=== PATIENT | female | born 1935 | race Caucasian/White ===

== ENCOUNTER → 2016-05-15 | Outpatient (CLI) | payer MEDICARE, OTHER ==
[~2016-05-15] MED LIST: ACIP20TA19 PO; ANAS1 PO; ASPI81 PO; ATOR10 PO; FELO5TAB PO; LEVO.075 PO; MECL-62 PO; NOVONP2 SQ; NOVORP2 SQ; TELM1TAB4 PO; TOPR50TA PO; VITA200017 PO; ZOFR4TAB3 SL; ZYRT10TA12 PO
[2016-05-15 08:50] LABS: AUTOMATED NEUTROPHIL # 3.5 TH/MM3 (1.8-7.7); BASOPHIL % 0.9 % (0.0-2.0); EOSINOPHIL # 0.2 TH/MM3 (0-0.4); EOSINOPHIL % 3.8 % (0.0-4.0); HEMATOCRIT 36.8 % (35.0-46.0); HEMO FLAGS DIFF FINAL; LYMPH % 20.3 % (9.0-44.0); LYMPHOCYTE # 1.1 TH/MM3 (1.0-4.8); MEAN CELL VOLUME 83.8 FL (80.0-100.0); MEAN CORPUSCULAR HEMOGLOBIN 27.7 PG (27.0-34.0); MEAN CORPUSCULAR HGB CONC 33.1 % (32.0-36.0); MONO % 7.8 % (0.0-8.0); NEUT % 67.2 % (16.0-70.0); PLATELET COUNT 207 TH/MM3 (150-450); RED BLOOD COUNT 4.39 MIL/MM3 (4.00-5.30); RED CELL DISTRIBUTION WIDTH 13.9 % (11.6-17.2); WHITE BLOOD COUNT 5.2 TH/MM3 (4.0-11.0)
[2016-05-15 08:54] LABS: BACTERIA, URINE RARE /hpf; BLOOD, URINE NEG (NEG); COMMENT (UR) CULT NOT INDICATED; CULTURE IF INDICATED CULT NOT INDICATED; GLUCOSE,URINE TRACE mg/dL (NEG); HYALINE CAST, URINE 1 /lpf (RARE); KETONE, URINE NEG (NEG); NITRITE,URINE NEG (NEG); PH, URINE 6.5 (5.0-8.5); SQUAMOUS EPITHELIAL CELL URINE <1 /hpf (0-5); URINE COLOR LIGHT-YELLOW (YELLW/STRAW)
[2016-05-15 09:14] LABS: MICRO ALBUMIN RANDOM URINE RAW 5.4 MG/L (0.0-30.0)
[2016-05-15 09:39] LABS: ALKALINE PHOSPHATASE 118 U/L (45-117); ALT (GPT) 17 U/L (10-53); ANION GAP 6 MEQ/L (5-15); AST (GOT) 14 U/L (15-37); BICARBONATE 27.7 MEQ/L (21.0-32.0); BLOOD UREA NITROGEN 11 MG/DL (7-18); CHLORIDE 105 MEQ/L (98-107); FREE T4 1.31 NG/DL (0.76-1.46); GLOMERULAR FILTRATION RATE 73 ML/MIN (>89); GLUCOSE,FASTING 154 MG/DL (74-99); HDL CHOLESTEROL 55.8 MG/DL (40.0-60.0); LDL CHOLESTEROL 64 MG/DL (0-99); POTASSIUM 3.9 MEQ/L (3.5-5.1); SODIUM (NA) 139 MEQ/L (136-145); TOTAL BILIRUBIN ADULT 0.6 MG/DL (0.2-1.0)
[2016-05-15 16:40] LABS: HEMOGLOBIN A1b 1.7 %; HEMOGLOBIN Ao 83.1 %; HEMOGLOBIN LA1C 2.4 %; HEMOGLOBIN P3 4.1 %
== END ==
LOC: CLAB 08:15
PROVIDERS: ATTEND Internal Medicine
DX: E10.9 Type 1 diabetes mellitus without complications (principal); E03.9 Hypothyroidism, unspecified
CPT/HCPCS: 36415; 80053; 80061; 81001; 82043; 83036; 84439; 84443; 85025

== ENCOUNTER → 2016-06-26 | Outpatient (CLI) | payer MEDICARE, OTHER ==
[2016-06-26 09:25] LABS: FREE T4 1.36 NG/DL (0.76-1.46)
== END ==
LOC: CLAB 07:59
DX: E03.9 Hypothyroidism, unspecified (principal)
CPT/HCPCS: 36415; 84439; 84443

== ENCOUNTER 2016-08-01 16:20 | Emergency (ER) | payer MEDICARE, OTHER ==
[~2016-08-01] VITALS: Ht 162.6 cm; Wt 89.0 kg
[~2016-08-01 16:20] MED LIST changes: -MECL-62 PO; -ZOFR4TAB3 SL
[2016-08-01 16:22] VITALS: BP 203/87; PULSE 92; RESP 24; TEMP 98.6; O2SAT 97
--- NOTE | 2016-08-01 16:25 | PD ---
Physical Exam Time Seen by Provider: 16:24 Narrative 81 y/o female here with headache, dizziness, nausea. Originally started 2 weeks ago, improved last week, worsened today. Vital signs reviewed. Seen at triage desk. Awaiting bed placement. Data Data Last Documented VS Vital Signs Date Time Temp Pulse Resp B/P Pulse Ox O2 Delivery O2 Flow Rate FiO2 08/01/16 16:22 98.6 92 24 203/87 97 MDM Medical Record Reviewed: Yes Supervised Visit with SURY: Yuan Lopez August 01, 2016 16:25
--- NOTE | 2016-08-01 17:43 | PD ---
HPI Chief Complaint: Dizziness Time Seen by Provider: 17:29 Travel History International Travel<30 days: No Contact w/Intl Traveler<30days: No Traveled to known affect area: No History of Present Illness HPI 81-year-old female complains of headache and dizziness and nausea. Patient states that she has intermittent symptoms for the past 2 weeks. Patient states that the headache is aching headache frontal headache. Patient denies any visual change. Patient denies any neck pain. Patient denies any chest pain or shortness of breath. Patient denies abdominal pain. Patient states that she had nausea but no vomiting or diarrhea. Patient denies any dysuria or frequency. Patient denies any fever chills. Patient denies any focal weakness or numbness of extremity. 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) High Cholesterol: No Chest Pain: No Congestive Heart Failure: No COPD: No Diabetes: Yes Endocrine: Yes GERD: Yes Genitourinary: No Hypertension: Yes Musculoskeletal: No Neurologic: Yes (DIZZINESS) Psychiatric: No Reproductive: No Respiratory: No Radiation Therapy: Yes Sleep Apnea: No Thyroid Disease: Yes (THYROID NODULES) Menopausal: Yes Past Surgical History Mastectomy: Yes (AMI) Social History Alcohol Use: No Tobacco Use: No Substance Use: No Allergies-Medications (Allergen,Severity, Reaction): Coded Allergies: Penicillin (Verified Allergy, Intermediate, Rash, 08/01/16) Latex (Verified Allergy, Mild, BLISTERS, 08/01/16) Ampicillin (Verified Allergy, Unknown, 08/01/16) Keflex (Verified Allergy, Unknown, Rash, 08/01/16) Reported Meds & Prescriptions Reported Meds & Active Scripts Active Reported Telmisartan/Hydrochloroth 80-25 mg (Telmisartan-Hydrochlorothiazid) 1 Tab Tab PO DAILY Felodipine Er (Felodipine) 5 Mg Tab 5 Mg PO DAILY Novolin R (Insulin Human Regular) 100 Units/Ml Inj 4 Units SQ PM Novolin R (Insulin Human Regular) 100 Units/Ml Inj 6 Units SQ AM Vitamin D3 (Cholecalciferol) 2,000 Unit Cap 2,000 Unit PO EVERY OTHER DAY Arimidex (Anastrozole) 1 Mg Tab 1 Mg PO DAILY Aciphex (Rabeprazole Sodium) 20MG Tab 20 Mg PO DAILY Aspirin 81 Mg Tab 81 Mg PO HS Synthroid (Levothyroxine Sodium) 75 Mcg Tab 75 Mcg PO HS Zyrtec (Cetirizine HCl) 10 Mg Tab 10 Mg PO EVERY OTHER DAY Lipitor (Atorvastatin Calcium) 10 Mg Tab 10 Mg PO HS Novolin N (Insulin Human NPH) 100 Units/Ml Inj 10 Units SQ PM Novolin N (Insulin Human NPH) 100 Units/Ml Inj 34 Units SQ AM Toprol Xl (Metoprolol Succinate) 50 Mg Tabcr 50 Mg PO DAILY Review of Systems General / Constitutional: No: Fever Eyes: No: Visual changes HENT: Positive: Headaches, Lightheadedness Cardiovascular: No: Chest Pain or Discomfort Respiratory: No: Shortness of Breath Gastrointestinal: Positive: Nausea, No: Abdominal Pain Genitourinary: No: Dysuria Musculoskeletal: No: Pain Skin: No Rash Neurologic: No: Weakness Psychiatric: No: Depression Endocrine: No: Polydipsia Hematologic/Lymphatic: No: Easy Bruising Physical Exam Narrative GENERAL: Well-nourished, well-developed patient. SKIN: Focused skin assessment warm/dry. HEAD: Normocephalic. EYES: No scleral icterus. No injection or drainage. Pupils 3 mm equal reactive. Patient has some mild horizontal nystagmus. NECK: Supple, trachea midline. No JVD or lymphadenopathy. CARDIOVASCULAR: Regular rate and rhythm without murmurs, gallops, or rubs. RESPIRATORY: Breath sounds equal bilaterally. No accessory muscle use. GASTROINTESTINAL: Abdomen soft, non-tender, nondistended. MUSCULOSKELETAL: No cyanosis, or edema. BACK: Nontender without obvious deformity. No CVA tenderness. Neurologic exam: Patient's awake and alert oriented 3. No obvious focal neurological deficit. Data Data Last Documented VS Vital Signs Date Time Temp Pulse Resp B/P Pulse Ox O2 Delivery O2 Flow Rate FiO2 08/01/16 16:22 98.6 92 24 203/87 97 Orders Electrocardiogram (08/01/16 16:26) Complete Blood Count With Diff (08/01/16 17:35) Basic Metabolic Panel (Bmp) (08/01/16 17:35) Urinalysis - C+S If Indicated (08/01/16 17:35) Ct Brain W/O Iv Contrast(Rout) (08/01/16 17:35) Iv Access Insert/Monitor (08/01/16 17:35) Ecg Monitoring (08/01/16 17:35) Oximetry (08/01/16 17:35) Meclizine (Antivert) (08/01/16 17:45) Ondansetron Inj (Zofran Inj) (08/01/16 17:45) Labs Laboratory Tests Test 08/01/16 18:05 White Blood Count 9.5 TH/MM3 Red Blood Count 4.72 MIL/MM3 Hemoglobin 13.0 GM/DL Hematocrit 39.3 % Mean Corpuscular Volume 83.4 FL Mean Corpuscular Hemoglobin 27.7 PG Mean Corpuscular Hemoglobin 33.2 % Concent Red Cell Distribution Width 14.6 % Platelet Count 203 TH/MM3 Mean Platelet Volume 7.7 FL Neutrophils (%) (Auto) 91.9 % Lymphocytes (%) (Auto) 4.8 % Monocytes (%) (Auto) 2.5 % Eosinophils (%) (Auto) 0.7 % Basophils (%) (Auto) 0.1 % Neutrophils # (Auto) 8.7 TH/MM3 Lymphocytes # (Auto) 0.5 TH/MM3 Monocytes # (Auto) 0.2 TH/MM3 Eosinophils # (Auto) 0.1 TH/MM3 Basophils # (Auto) 0.0 TH/MM3 CBC Comment DIFF FINAL Differential Comment Sodium Level 136 MEQ/L Potassium Level 4.0 MEQ/L Chloride Level 102 MEQ/L Carbon Dioxide Level 26.6 MEQ/L Anion Gap 7 MEQ/L Blood Urea Nitrogen 16 MG/DL Creatinine 0.76 MG/DL Estimat Glomerular Filtration 73 ML/MIN Rate Random Glucose 157 MG/DL Calcium Level 9.0 MG/DL [facility] Medical Decision Making Medical Screen Exam Complete: Yes Emergency Medical Condition: Yes Interpretation(s) 1833 PM. CBC within normal limit. WBC 9.5. 91 neutrophil. BMP within normal limit. [address] scan of the brain negative acute pathology. Differential Diagnosis Differential diagnosis including positional vertigo, dehydration, electrolyte imbalance, intracranial pathology. Narrative Course 81-year-old female with intermittent dizziness and nausea and headache. Meclizine 25 mg by mouth given. Zofran 4 mg IV. Diagnosis Primary Impression: Acute onset of severe vertigo Patient Instructions: General Instructions Additional Instructions: Take medications as needed. Follow-up with personal physician. Return if persistent problem or worse. Med/Other Pt SpecificInfo: Prescription(s) given Scripts Ondansetron Odt (Zofran Odt)4 Mg Tab4 Mg SL Q12HR PRN (Nausea/Vomiting) #10 TAB Ref 0 Prov:Kristian Dawn MD 08/01/16 Meclizine 25 Mg Tab25 Mg PO TID PRN (VERTIGO) #21 TAB Ref 0 Prov:Kristian Dawn MD 08/01/16 Disposition: 01 DISCHARGE HOME Condition: Stable Kristian Dawn MD August 01, 2016 17:43
[2016-08-01] MEDS ORDERED: MECLIZINE HCL 25 MG TAB PO ONE (17:45)
[2016-08-01] MEDS ORDERED: ONDANSETRON HCL 4 MG/2 ML VIAL IV PUSH ONE (17:45)
[2016-08-01 18:16] LABS: AUTOMATED NEUTROPHIL # 8.7 TH/MM3 (1.8-7.7); BASOPHIL % 0.1 % (0.0-2.0); EOSINOPHIL # 0.1 TH/MM3 (0-0.4); EOSINOPHIL % 0.7 % (0.0-4.0); HEMATOCRIT 39.3 % (35.0-46.0); HEMO FLAGS DIFF FINAL; LYMPH % 4.8 % (9.0-44.0); LYMPHOCYTE # 0.5 TH/MM3 (1.0-4.8); MEAN CELL VOLUME 83.4 FL (80.0-100.0); MEAN CORPUSCULAR HEMOGLOBIN 27.7 PG (27.0-34.0); MEAN CORPUSCULAR HGB CONC 33.2 % (32.0-36.0); MONO % 2.5 % (0.0-8.0); NEUT % 91.9 % (16.0-70.0); PLATELET COUNT 203 TH/MM3 (150-450); RED BLOOD COUNT 4.72 MIL/MM3 (4.00-5.30); RED CELL DISTRIBUTION WIDTH 14.6 % (11.6-17.2); WHITE BLOOD COUNT 9.5 TH/MM3 (4.0-11.0)
--- NOTE | 2016-08-01 18:30 | RADRPT ---
EXAM DATE/TIME: 08/01/2016 18:09 [facility] COMPARISON: CT BRAIN W/O CONTRAST, January 20, 2014, 13:02. INDICATIONS : Cephalgia and dizziness. RADIATION DOSE: 56.35 CTDIvol (mGy) MEDICAL HISTORY : Hypertension. Cardiovascular disease Carcinoma, breast. SURGICAL HISTORY : Mastectomy, bilateral. ENCOUNTER: Initial ACUITY: 1 day PAIN SCALE: 5/10 LOCATION: cranial TECHNIQUE: Multiple contiguous axial images were obtained of the head. Using automated exposure control and adj ustment of the mA and/or kV according to patient size, radiation dose was kept as low as reasonably a chievable to obtain optimal diagnostic quality images. FINDINGS: CEREBRUM: The ventricles are normal for age. No evidence of midline shift, mass lesion, hemorrhage or acute in farction. No extra-axial fluid collections are seen. POSTERIOR FOSSA: The cerebellum and brainstem are intact. The 4th ventricle is midline. The cerebellopontine angle i s unremarkable. EXTRACRANIAL: The visualized portion of the orbits is intact. SKULL: The calvaria is intact. No evidence of skull fracture. CONCLUSION: Normal examination for a patient of this age. No significant change has occurred. Mac Escalante MD on August 01, 2016 at 18:26 Board Certified Radiologist. This report was verified electronically.
[2016-08-01 18:32] LABS: BICARBONATE 26.6 MEQ/L (21.0-32.0)
[2016-08-01] MEDS ORDERED: MECL-62 PO (18:43)
[2016-08-01] MEDS ORDERED: ZOFR4TAB3 SL (18:43)
[2016-08-01 19:20] VITALS: BP 182/86
--- NOTE | 2016-08-02 10:58 | EKG ---
Date Performed: 08/01/2016 Time Performed: 16:32:43 PTAGE: 81 years EKG: Sinus rhythm POSSIBLE LEFT ATRIAL ENLARGEMENT RIGHT BUNDLE BRANCH BLOCK ABNORMAL ECG NO PREVIOUS TRACING DOCTOR: Jeff Hedz Interpretating Date/Time 08/02/2016 10:56:32
== END 2016-08-01 19:22 | disposition home or self-care (01) ==
LOC: NEPC 16:20
DX: R42 Dizziness and giddiness (principal); R51 Headache; R11.0 Nausea; E11.9 Type 2 diabetes mellitus without complications; I10 Essential (primary) hypertension; E04.1 Nontoxic single thyroid nodule; I45.10 Unspecified right bundle-branch block
CPT/HCPCS: 70450; 80048; 85025; 93005; 96374; 99284; J2405

== ENCOUNTER → 2016-08-16 | Outpatient (CLI) | payer MEDICARE, OTHER ==
[~2016-08-16] MED LIST changes: +MECL-62 PO; +ZOFR4TAB3 SL
[2016-08-16 08:34] LABS: AUTOMATED NEUTROPHIL # 4.2 TH/MM3 (1.8-7.7); BASOPHIL # 0.1 TH/MM3 (0-0.2); EOSINOPHIL # 0.3 TH/MM3 (0-0.4); EOSINOPHIL % 4.6 % (0.0-4.0); HEMATOCRIT 36.1 % (35.0-46.0); HEMO FLAGS DIFF FINAL; LYMPH % 15.2 % (9.0-44.0); LYMPHOCYTE # 0.9 TH/MM3 (1.0-4.8); MEAN CELL VOLUME 84.1 FL (80.0-100.0); MEAN CORPUSCULAR HEMOGLOBIN 27.3 PG (27.0-34.0); MEAN CORPUSCULAR HGB CONC 32.5 % (32.0-36.0); MONO % 9.2 % (0.0-8.0); PLATELET COUNT 216 TH/MM3 (150-450); RED CELL DISTRIBUTION WIDTH 14.5 % (11.6-17.2); WHITE BLOOD COUNT 5.9 TH/MM3 (4.0-11.0)
[2016-08-16 08:50] LABS: BLOOD, URINE NEG (NEG); COMMENT (UR) CULT NOT INDICATED; CULTURE IF INDICATED CULT NOT INDICATED; GLUCOSE,URINE NEG (NEG); KETONE, URINE NEG (NEG); MUCUS URINE FEW /lpf (OCC); NITRITE,URINE NEG (NEG); SQUAMOUS EPITHELIAL CELL URINE <1 /hpf (0-5); URINE COLOR LIGHT-YELLOW (YELLW/STRAW)
[2016-08-16 10:16] LABS: ANION GAP 7 MEQ/L (5-15); BICARBONATE 27.5 MEQ/L (21.0-32.0); BLOOD UREA NITROGEN 10 MG/DL (7-18); CHLORIDE 103 MEQ/L (98-107); GLOMERULAR FILTRATION RATE 83 ML/MIN (>89); GLUCOSE,FASTING 125 MG/DL (74-99); POTASSIUM 3.9 MEQ/L (3.5-5.1); SODIUM (NA) 137 MEQ/L (136-145)
[2016-08-16 10:25] LABS: ALKALINE PHOSPHATASE 103 U/L (45-117); ALT (GPT) 23 U/L (10-53); AST (GOT) 19 U/L (15-37); FREE T4 1.35 NG/DL (0.76-1.46); HDL CHOLESTEROL 51.2 MG/DL (40.0-60.0); LDL CHOLESTEROL 59 MG/DL (0-99); TOTAL BILIRUBIN ADULT 0.4 MG/DL (0.2-1.0)
[2016-08-16 10:28] LABS: CREATININE RANDOM URINE 48 MG/DL (27-300)
[2016-08-16 16:12] LABS: HEMOGLOBIN A1b 1.6 %; HEMOGLOBIN Ao 84.3 %; HEMOGLOBIN P3 3.9 %
[2016-08-17 02:13] LABS: MICRO ALBUMIN RANDOM URINE RAW LESS THAN 5.0 MG/L (0.0-30.0); MICROALBUMIN/CREAT RATIO RAND 10 MG/G CRE (0-30)
== END ==
LOC: CLAB 08:03
PROVIDERS: ATTEND Internal Medicine
DX: E10.9 Type 1 diabetes mellitus without complications (principal); E03.9 Hypothyroidism, unspecified
CPT/HCPCS: 36415; 80053; 80061; 81001; 82043; 83036; 84439; 84443; 85025

== ENCOUNTER → 2016-09-18 | Outpatient (CLI) | payer MEDICARE, OTHER | LOC: CLAB 08:20 | PROVIDERS: ATTEND Internal Medicine | DX: M31.6 Other giant cell arteritis (principal) | CPT/HCPCS: 36415; 85652 ==

== ENCOUNTER → 2016-09-28 | Day surgery (SDC) | payer MEDICARE, OTHER ==
[~2016-09-28] VITALS: Ht 163.8 cm; Wt 82.6 kg
[~2016-09-28] MED LIST changes: +ANAS1TAB PO; +ASPI81CH CHEW; +ATOR10TA15 PO; +BUPIVACAINE/EPINEPHRINE 0.25% 50 ML VIAL INFIL ONE; +BUPIVACAINE/EPINEPHRINE 0.5% PF 10 ML VIAL INFIL ONE; +CALC250T PO; +CHLORHEXIDINE GLUCONATE 2 % 1 PACK (2 CLOTHS) TOPICAL PRN; +FEXO15TA PO; +IBUP200C PO; +INSULIN HUMAN REGULAR 1,000 UNITS/10 ML VIAL SQ PRN; +LACTATED RINGER'S 1000 ML IV PRN; +METO50TA11 PO; +METOPROLOL TARTRATE 25 MG TAB PO PRN; +MICA80TA2 PO; +MIDAZOLAM HCL 2 MG/2 ML VIAL ONE; +POVIDONE IODINE 5% (ANTISEPSIS KIT) 4 APPLICATIONS EACH NARE PRN; +PRED10 PO; +PROPOFOL 200 MG/20 ML AMP IV ONE; +RABE1TAB PO; +SODIUM CHLORID 0.9% 500 ML IV PRN; +VANCOMYCIN HCL 1000 MG ON-CALL/NS 250 ML IV SCH; +VITA2000 PO; +ePHEDrine/NS 25 MG/5 ML SYR IV ONE
[2016-09-28 11:43] VITALS: BP 187/86; PULSE 62; RESP 20; TEMP 97.3; O2SAT 97
--- NOTE | 2016-09-28 12:09 | EKG ---
Date Performed: 09/28/2016 Time Performed: 11:40:25 PTAGE: 81 years EKG: Sinus rhythm RIGHT BUNDLE BRANCH BLOCK ABNORMAL ECG PREVIOUS TRACING : 08/01/2016 16.32 No change from previous tracing noted. DOCTOR: Anish Rodriguez Interpretating Date/Time 09/28/2016 12:08:46
[2016-09-28 14:30] VITALS: BP 156/59; PULSE 60; RESP 16; TEMP 96.9; O2SAT 99
--- NOTE | 2016-09-29 17:38 | MP ---
cc: ANN PIERCE MARK W. M.D., PH.D DATE OF SURGERY 09/28/16 PREOPERATIVE DIAGNOSIS Temporal arteritis. POSTOPERATIVE DIAGNOSIS Temporal arteritis. PROCEDURE Bilateral temporal artery biopsy. SURGEON Darnell Pierce MD CORE MANAGER RASHARD Grimes ANESTHESIA Local MAC DESCRIPTION OF PROCEDURE With the patient in the supine position and under IV sedation, the facial areas anterior to each ear were prepped with Betadine and draped in a sterile fashion. Bilateral temporal artery biopsy was completed identically as described below. Skin and subcutaneous tissue overlying the courses of the right and left superficial femoral arteries infiltrated with 1% Xylocaine with epinephrine. Vertical 5 cm incisions were performed. The superficial femoral arteries were circumferentially mobilized, ligated proximally and distally with 4-0 silk and divided between the ligatures. Specimens were submitted for histology. Strict hemostasis was achieved. Both incision secured with continuous subcuticular 5-0 Monocryl, reinforced with Steri-Strips. No operative complications. Instrument, needle and sponge count were correct x2. The patient returned to the recovery room in stable condition having tolerated procedure well. MD TALAT Marquez/ /10:37 AM /5:34 PM
== END | disposition home or self-care (01) ==
LOC: HSDC 10:44
PROVIDERS: ATTEND Surgery Vascular Surgery
DX: R51 Headache (principal); R42 Dizziness and giddiness; I45.10 Unspecified right bundle-branch block; R94.31 Abnormal electrocardiogram [ECG] [EKG]; I10 Essential (primary) hypertension; E78.5 Hyperlipidemia, unspecified; E11.9 Type 2 diabetes mellitus without complications; K21.9 Gastro-esophageal reflux disease without esophagitis; Z85.3 Personal history of malignant neoplasm of breast
CPT/HCPCS: 00352; 37609; 82948; 88305; 93005; J2250; J3010; J3370; J7050; J7120; 88304

== ENCOUNTER → 2016-10-20 | Outpatient (CLI) | payer MEDICARE, OTHER ==
[~2016-10-20] MED LIST changes: -ACIP20TA19 PO; -ANAS1 PO; -ASPI81 PO; -ATOR10 PO; -BUPIVACAINE/EPINEPHRINE 0.25% 50 ML VIAL INFIL ONE; -BUPIVACAINE/EPINEPHRINE 0.5% PF 10 ML VIAL INFIL ONE; -CHLORHEXIDINE GLUCONATE 2 % 1 PACK (2 CLOTHS) TOPICAL PRN; -INSULIN HUMAN REGULAR 1,000 UNITS/10 ML VIAL SQ PRN; -LACTATED RINGER'S 1000 ML IV PRN; -METOPROLOL TARTRATE 25 MG TAB PO PRN; -MIDAZOLAM HCL 2 MG/2 ML VIAL ONE; -POVIDONE IODINE 5% (ANTISEPSIS KIT) 4 APPLICATIONS EACH NARE PRN; -PROPOFOL 200 MG/20 ML AMP IV ONE; -SODIUM CHLORID 0.9% 500 ML IV PRN; -TELM1TAB4 PO; -TOPR50TA PO; -VANCOMYCIN HCL 1000 MG ON-CALL/NS 250 ML IV SCH; -VITA200017 PO; -ZOFR4TAB3 SL; -ZYRT10TA12 PO; -ePHEDrine/NS 25 MG/5 ML SYR IV ONE
[2016-10-20 09:46] LABS: HEMATOCRIT 41.6 % (35.0-46.0); MEAN CELL VOLUME 87.7 FL (80.0-100.0); MEAN CORPUSCULAR HEMOGLOBIN 28.8 PG (27.0-34.0); MEAN CORPUSCULAR HGB CONC 32.8 % (32.0-36.0); PLATELET COUNT 203 TH/MM3 (150-450); RED BLOOD COUNT 4.74 MIL/MM3 (4.00-5.30); RED CELL DISTRIBUTION WIDTH 15.7 % (11.6-17.2); REVIEW FLAG FINAL; WHITE BLOOD COUNT 8.4 TH/MM3 (4.0-11.0)
[2016-10-20 10:12] LABS: ANION GAP 5 MEQ/L (5-15); BICARBONATE 32.5 MEQ/L (21.0-32.0); BLOOD UREA NITROGEN 18 MG/DL (7-18); CHLORIDE 101 MEQ/L (98-107); GLOMERULAR FILTRATION RATE 57 ML/MIN (>89); GLUCOSE,FASTING 212 MG/DL (74-99); POTASSIUM 3.7 MEQ/L (3.5-5.1); SODIUM (NA) 138 MEQ/L (136-145)
[2016-10-20 10:24] LABS: WESTERGREN SEDIMENTATION RATE 6 mm/hr (0-30)
== END ==
LOC: CLAB 09:10
PROVIDERS: ATTEND Specialist
DX: R42 Dizziness and giddiness (principal); M31.6 Other giant cell arteritis; R79.82 Elevated C-reactive protein (CRP); R78.9 Finding of unspecified substance, not normally found in blood; E88.9 Metabolic disorder, unspecified
CPT/HCPCS: 36415; 80048; 85027; 85652; 86140

== ENCOUNTER → 2016-10-30 | Outpatient (CLI) | payer MEDICARE, OTHER ==
[~2016-10-30] MED LIST changes: +ASPI325T33 PO; +COMMODE 3-IN-11 MIS; +FAMO20TA2 PO; +LISI-519 PO; +MECL1TAB42 PO; +MISCMIS81; +PLAV75TA29 PO; +POTA-243 PO; +PRED5TAB PO; +WHEEMIS3
[2016-10-30 14:21] LABS: BACTERIA, URINE RARE /hpf; BLOOD, URINE NEG (NEG); COMMENT (UR) CULT NOT INDICATED; CULTURE IF INDICATED CULT NOT INDICATED; GLUCOSE,URINE NEG (NEG); KETONE, URINE NEG (NEG); MUCUS URINE FEW /lpf (OCC); NITRITE,URINE NEG (NEG); SQUAMOUS EPITHELIAL CELL URINE <1 /hpf (0-5); URINE COLOR LIGHT-YELLOW (YELLW/STRAW)
== END ==
LOC: CLAB 13:44
PROVIDERS: ATTEND Internal Medicine
DX: N39.0 Urinary tract infection, site not specified (principal)
CPT/HCPCS: 81001

== ENCOUNTER → 2016-11-16 | Outpatient (CLI) | payer MEDICARE, OTHER ==
[2016-11-16 08:50] LABS: AUTOMATED NEUTROPHIL # 5.7 TH/MM3 (1.8-7.7); BASOPHIL % 0.7 % (0.0-2.0); EOSINOPHIL % 0.7 % (0.0-4.0); HEMATOCRIT 36.7 % (35.0-46.0); HEMO FLAGS DIFF FINAL; LYMPH % 10.5 % (9.0-44.0); LYMPHOCYTE # 0.7 TH/MM3 (1.0-4.8); MEAN CORPUSCULAR HGB CONC 34.1 % (32.0-36.0); MONO % 5.6 % (0.0-8.0); NEUT % 82.5 % (16.0-70.0); PLATELET COUNT 208 TH/MM3 (150-450); RED BLOOD COUNT 4.32 MIL/MM3 (4.00-5.30); RED CELL DISTRIBUTION WIDTH 15.8 % (11.6-17.2); WHITE BLOOD COUNT 6.9 TH/MM3 (4.0-11.0)
[2016-11-16 09:10] LABS: BACTERIA, URINE RARE /hpf; BLOOD, URINE NEG (NEG); COMMENT (UR) CULTURE INDICATED; CULTURE IF INDICATED CULTURE INDICATED; GLUCOSE,URINE NEG (NEG); KETONE, URINE NEG (NEG); NITRITE,URINE POS (NEG); PH, URINE 6.5 (5.0-8.5); URINE COLOR YELLOW (YELLW/STRAW)
[2016-11-16 09:21] LABS: ANION GAP 8 MEQ/L (5-15); AST (GOT) 13 U/L (15-37); BICARBONATE 26.9 MEQ/L (21.0-32.0); BLOOD UREA NITROGEN 13 MG/DL (7-18); CHLORIDE 104 MEQ/L (98-107); GLOMERULAR FILTRATION RATE 82 ML/MIN (>89); GLUCOSE,FASTING 127 MG/DL (74-99); POTASSIUM 3.8 MEQ/L (3.5-5.1); SODIUM (NA) 139 MEQ/L (136-145)
[2016-11-16 09:31] LABS: ALKALINE PHOSPHATASE 90 U/L (45-117); ALT (GPT) 27 U/L (10-53); FREE T4 1.63 NG/DL (0.76-1.46); HDL CHOLESTEROL 65.6 MG/DL (40.0-60.0); LDL CHOLESTEROL 62 MG/DL (0-99); TOTAL BILIRUBIN ADULT 0.9 MG/DL (0.2-1.0)
[2016-11-16 10:10] LABS: MICRO ALBUMIN RANDOM URINE RAW 10.8 MG/L (0.0-30.0)
[2016-11-16 17:06] LABS: HEMOGLOBIN A1a 1.1 %; HEMOGLOBIN A1b 2.1 %; HEMOGLOBIN Ao 81.8 %; HEMOGLOBIN LA1C 2.2 %; HEMOGLOBIN P3 4.4 %
== END ==
LOC: CLAB 08:14
PROVIDERS: ATTEND Specialist
DX: R51 Headache (principal); R70.0 Elevated erythrocyte sedimentation rate; R79.82 Elevated C-reactive protein (CRP); E03.9 Hypothyroidism, unspecified; E10.9 Type 1 diabetes mellitus without complications; N39.0 Urinary tract infection, site not specified; B96.20 Unspecified Escherichia coli [E. coli] as the cause of diseases classified elsewhere
CPT/HCPCS: 36415; 80053; 80061; 81001; 82043; 83036; 84439; 84443; 85025; 85652; 86140; 87077; 87086; 87186

== ENCOUNTER 2016-11-17 18:15 | Emergency (ER) | payer MEDICARE, OTHER ==
[~2016-11-17 18:15] MED LIST changes: -ASPI325T33 PO; -COMMODE 3-IN-11 MIS; -FAMO20TA2 PO; -LISI-519 PO; -MECL1TAB42 PO; -MISCMIS81; -PLAV75TA29 PO; -POTA-243 PO; -PRED5TAB PO; -WHEEMIS3
[2016-11-17 18:39] VITALS: BP 120/56; PULSE 94; RESP 18; TEMP 99.8; O2SAT 96
[2016-11-17 20:37] VITALS: BP 130/61; PULSE 95; RESP 19; TEMP 99.7; O2SAT 98
[2016-11-17] MEDS ORDERED: AZTREONAM INJ 1,000 MG in SODIUM CHLORIDE 0.9% INJ 100 ML IV STA (20:41)
[2016-11-17] MEDS ORDERED: SODIUM CHLORID 0.9% 500 ML INJ 500 ML IV ONE (20:45)
--- NOTE | 2016-11-17 20:49 | PD ---
HPI Chief Complaint: Dizziness Time Seen by Provider: 20:34 Travel History International Travel<30 days: No Contact w/Intl Traveler<30days: No Traveled to known affect area: No History of Present Illness HPI Patient comes in complaining of concerns of possible kidney infection. Patient states that she had routine blood work and testing done yesterday at her primary care doctor's office as well as by her specialist. Patient was noted to have a UTI. Patient was started on Macrobid. Last dose this morning. Patient states she went to another facility earlier today was switched to Cipro but was unable get the antibiotic secondary to a pharmacy having more than a 4 hour wait. Patient got concerned and came to the emergency department. Patient states she had fevers earlier today for which she took Tylenol the last dose was around 1:00pm today. Patient reports associated nausea but denies any vomiting, loss or change in bowel or bladder, chest pain, shortness of breath, back pain, or headaches. Patient states she does have dizziness that has been ongoing since July and she sees neurology for this. Patient states she takes meclizine for dizziness last took a dose this morning. PFSH Past Medical History Asthma: No Blood Disorders: No Heart Rhythm Problems: No Cancer: Yes (AMI. BREAST CA, SKIN) Cardiovascular Problems: Yes (LEAKY VALVE) High Cholesterol: No Chest Pain: No Congestive Heart Failure: No COPD: No Diabetes: Yes Patient Takes Glucophage: No Endocrine: Yes Gastrointestinal Disorders: Yes (GERD) GERD: Yes Genitourinary: Yes (STRESS INCONTINENCE) Hepatitis: No Hiatal Hernia: Yes Hypertension: Yes Immune Disorder: No Musculoskeletal: No Neurologic: Yes (DIZZINESS) Psychiatric: No Reproductive: No Respiratory: No Radiation Therapy: Yes Sleep Apnea: No Thyroid Disease: Yes (THYROID NODULES) Menopausal: Yes Dilation and Curettage (D&C): Yes Tubal Ligation: Yes Past Surgical History AICD: No Genitourinary Surgery: Yes (BLADDER LIFT) Gynecologic Surgery: Yes (TUBAL LIGATION) Joint Replacement: No Mastectomy: Yes (AMI) Oral Surgery: Yes (TONSILLECTOMY) Pacemaker: No Thoracic Surgery: Yes (AMI. MASTECTOMIES) Other Surgery: Yes (BILATERAL MASTECTOMIES, BLADDER LIFT) Social History Alcohol Use: No Tobacco Use: No Substance Use: No Allergies-Medications (Allergen,Severity, Reaction): Coded Allergies: ampicillin (Unverified Allergy, Severe, Rash, 9/1/17) cephalexin (Unverified Allergy, Severe, Rash, 11/17/16) penicillin G (Unverified Allergy, Severe, Rash, 11/17/16) Reported Meds & Prescriptions Reported Meds & Active Scripts Active Reported Prednisone 10 Mg Tab 30 Mg PO DAILY Meclizine (Meclizine HCl) 25 Mg Tab 25 Mg PO DIRECTED PRN Brandi Allergy (Fexofenadine HCl) 180 Mg Tab 180 Mg PO DAILY PRN Ibuprofen 200 Mg Cap 200 Mg PO DAILY PRN Calcium Citrate 250 Mg Tab 105 Mg PO HS Vitamin D3 (Cholecalciferol) 2,000 Unit Cap 2,000 Units PO HS Aspirin 81 Mg Chew 81 Mg CHEW HS Synthroid (Levothyroxine Sodium) 75 Mcg Tab 75 Mcg PO HS Atorvastatin (Atorvastatin Calcium) 10 Mg Tab 10 Mg PO HS Novolin R Inj (Insulin Human Regular) 1,000 Unit/10 Ml Vial 10 Units SQ AC DINNER Novolin R Inj (Insulin Human Regular) 1,000 Unit/10 Ml Vial 12 Units SQ AC BREAKFAST Novolin N Inj (Insulin Human NPH) 1,000 Unit/10 Ml Vial 14 Units SQ AC DINNER Novolin N Inj (Insulin Human NPH) 1,000 Unit/10 Ml Vial 39 Units SQ AC BREAKFAST Rabeprazole (Rabeprazole Sodium) 20 Mg Tab 20 Mg PO DAILY Anastrozole 1 Mg Tab 1 Mg PO DAILY Metoprolol Succinate ER 24 HR (Metoprolol Succinate) 50 Mg Tab 50 Mg PO DAILY Micardis Hct (Telmisartan-Hydrochlorothiazide) 80-12.5 Mg Tab 1 Tab PO DAILY Felodipine ER (Felodipine) 5 Mg Damon 5 Mg PO DAILY Review of Systems Except as stated in HPI: all other systems reviewed are Neg Physical Exam Narrative GENERAL: Well-developed, overly nourished, in no acute distress, and non-ill appearing. SKIN: Focused skin assessment warm and dry. HEAD: Atraumatic. Normocephalic. EYES: Pupils equal and round. EOMI. No scleral icterus. No injection or drainage. ENT: No nasal bleeding or discharge. Mucous membranes pink and moist. NECK: Trachea midline. Supple. No nuclear rigidity. CARDIOVASCULAR: Regular rate and rhythm. No murmur appreciated. RESPIRATORY: No accessory muscle use. No respiratory distress. Clear to auscultation. Breath sounds equal bilaterally. GASTROINTESTINAL: Abdomen soft, non-tender, nondistended, and no guarding. Hepatic and splenic margins not palpable. Normal bowel sounds 4. No pulsatile mass. No CVA tenderness. MUSCULOSKELETAL: No obvious deformities. No clubbing. No cyanosis. No edema. Full range of motion. NEUROLOGICAL: Awake and alert. No obvious cranial nerve deficits. Motor grossly within normal limits. Normal speech. PSYCHIATRIC: Appropriate mood and affect; insight and judgment normal. Data Data Last Documented VS Vital Signs Date Time Temp Pulse Resp B/P (MAP) Pulse Ox O2 Delivery O2 Flow Rate FiO2 11/17/16 22:32 83 20 130/59 (82) 98 11/17/16 21:20 Room Air 11/17/16 20:37 99.7 Orders Orders Electrocardiogram (11/17/16 20:41) Complete Blood Count With Diff (11/17/16 20:41) Comprehensive Metabolic Panel (11/17/16 20:41) Prothrombin Time / Inr (Pt) (11/17/16 20:41) Act Partial Throm Time (Ptt) (11/17/16 20:41) Lactic Acid Sepsis Protocol (11/17/16 20:41) Magnesium (Mg) (11/17/16 20:41) Ckmb (Isoenzyme) Profile (11/17/16 20:41) Troponin I (11/17/16 20:41) Urinalysis - C+S If Indicated (11/17/16 20:41) Blood Culture (11/17/16 20:41) Chest, Single Ap (11/17/16 20:41) Blood Glucose (11/17/16 20:41) Ecg Monitoring (11/17/16 20:41) Iv Access Insert/Monitor (11/17/16 20:41) Oximetry (11/17/16 20:41) Oxygen Administration (11/17/16 20:41) Aztreonam Inj (Azactam Inj) (11/17/16 20:41) Sodium Chlorid 0.9% 500 Ml Inj (Ns 500 M (11/17/16 20:45) Meclizine (Antivert) (11/17/16 21:00) Potassium Chloride (Kcl) (11/17/16 22:00) Ciprofloxacin (Cipro) (11/17/16 22:30) Urine Culture (11/17/16 22:55) Labs Laboratory Tests Test 11/17/16 21:10 11/17/16 22:55 White Blood Count 12.2 TH/MM3 Red Blood Count 4.32 MIL/MM3 Hemoglobin 12.1 GM/DL Hematocrit 36.8 % Mean Corpuscular Volume 85.1 FL Mean Corpuscular Hemoglobin 28.1 PG Mean Corpuscular Hemoglobin Concent 33.0 % Red Cell Distribution Width 15.5 % Platelet Count 205 TH/MM3 Mean Platelet Volume 7.2 FL Neutrophils (%) (Auto) 93.1 % Lymphocytes (%) (Auto) 2.3 % Monocytes (%) (Auto) 3.1 % Eosinophils (%) (Auto) 1.1 % Basophils (%) (Auto) 0.4 % Neutrophils # (Auto) 11.4 TH/MM3 Lymphocytes # (Auto) 0.3 TH/MM3 Monocytes # (Auto) 0.4 TH/MM3 Eosinophils # (Auto) 0.1 TH/MM3 Basophils # (Auto) 0.0 TH/MM3 CBC Comment DIFF FINAL Differential Comment Prothrombin Time 11.2 SEC Prothromb Time International Ratio 1.0 RATIO Activated Partial Thromboplast Time 26.4 SEC Blood Urea Nitrogen 14 MG/DL Creatinine 0.93 MG/DL Random Glucose 152 MG/DL Total Protein 6.0 GM/DL Albumin 2.7 GM/DL Calcium Level 8.5 MG/DL Magnesium Level 1.8 MG/DL Alkaline Phosphatase 93 U/L Aspartate Amino Transf (AST/SGOT) 13 U/L Alanine Aminotransferase (ALT/SGPT) 25 U/L Total Bilirubin 2.0 MG/DL Sodium Level 135 MEQ/L Potassium Level 3.2 MEQ/L Chloride Level 97 MEQ/L Carbon Dioxide Level 25.9 MEQ/L Anion Gap 12 MEQ/L Estimat Glomerular Filtration Rate 58 ML/MIN Lactic Acid Level 2.0 mmol/L Total Creatine Kinase 36 U/L Troponin I LESS THAN 0.02 NG/ML Urine Color YELLOW Urine Turbidity CLEAR Urine pH 7.5 Urine Specific [place] 1.013 Urine Protein NEG mg/dL Urine Glucose (UA) NEG mg/dL Urine Ketones TRACE mg/dL Urine Occult Blood NEG Urine Nitrite NEG Urine Bilirubin NEG Urine Urobilinogen 2.0 MG/DL Urine Leukocyte Esterase TRACE Urine RBC 1 /hpf Urine WBC 9 /hpf Urine Squamous Epithelial Cells <1 /hpf Urine Mucus FEW /lpf Microscopic Urinalysis Comment CATH-CULTURE IND MDM Medical Decision Making Medical Screen Exam Complete: Yes Emergency Medical Condition: Yes Interpretation(s) EKG reviewed by Dr. Arroyo shows sinus rhythm with ventricular rate of 85. No STEMI. Chest x-ray read by the radiologist shows: No acute disease. Differential Diagnosis UTI, sepsis, pneumonia, electrolyte abnormality, arrhythmia, other Narrative Course Patient was seen and exam. Initial laboratory and radiological studies were ordered. Patient was given IV antibiotics and IV fluid. Along with a dose of her meclizine. After laboratory/studies were obtained with exception of UA, I discussed patient with Dr. Arroyo, who saw and evaluated the patient and is in agreement with plan of care and disposition. The patient is tolerating fluids, no fever, and no back pain. There is no clinical evidence to suggest atypical appendicitis. The patient was discharged instructed to continue her antibiotics and given warnings to return if condition worsens in any way, fever, vomiting and unable to tolerate medications or fluids, back pain or as needed. The patient was instructed to follow up with their physician. The patient agrees with plan of care. Patient in no obvious distress upon re-evaluation. All pertinent laboratory/ Radiology result(s) discussed with patient. Patient reports she is feeling better and is comfortable going home. Any questions/concerns in reference to patient diagnosis/condition discussed and clarified prior to patient's discharge. Reinforced sheer importance of close follow up with patient's primary physician or primary care clinic. Instructed patient to return to ED immediately, if symptoms return/worsen. Pt showed understanding of above instructions. Further instructions and recommendations were detailed in discharge paperwork. Pt ambulated without difficulty out of ED at discharge. Diagnosis Primary Impression: UTI (urinary tract infection) Qualified Codes: N39.0 - Urinary tract infection, site not specified Patient Instructions: General Instructions, Urinary Tract Infection in Women ( [place]) Additional Instructions: Follow-up with your primary care physician next week for reevaluation. Take all your Cipro as prescribed. Drink plan of non-caffeinated and nonalcoholic fluids. Return to the emergency department if symptoms get worse, fevers, chest pain, shortness of breath, unable tolerate fluids, or for other concerns.. Disposition: 01 DISCHARGE HOME Condition: Stable Nikita Ness Nov 17, 2016 20:49
[2016-11-17] MEDS ORDERED: PRED10 PO (20:51)
[2016-11-17] MEDS ORDERED: MECLIZINE HCL 25 MG TAB PO ONE (21:00)
[2016-11-17 21:33] LABS: AUTOMATED NEUTROPHIL # 11.4 TH/MM3 (1.8-7.7); BASOPHIL % 0.4 % (0.0-2.0); EOSINOPHIL # 0.1 TH/MM3 (0-0.4); EOSINOPHIL % 1.1 % (0.0-4.0); HEMATOCRIT 36.8 % (35.0-46.0); HEMO FLAGS DIFF FINAL; LYMPH % 2.3 % (9.0-44.0); LYMPHOCYTE # 0.3 TH/MM3 (1.0-4.8); MEAN CELL VOLUME 85.1 FL (80.0-100.0); MEAN CORPUSCULAR HEMOGLOBIN 28.1 PG (27.0-34.0); MONO % 3.1 % (0.0-8.0); NEUT % 93.1 % (16.0-70.0); PLATELET COUNT 205 TH/MM3 (150-450); RED BLOOD COUNT 4.32 MIL/MM3 (4.00-5.30); RED CELL DISTRIBUTION WIDTH 15.5 % (11.6-17.2); WHITE BLOOD COUNT 12.2 TH/MM3 (4.0-11.0)
[2016-11-17 21:40] LABS: APTT (PATIENT) 26.4 SEC (24.3-30.1); PROTHROMBIN TIME - PATIENT 11.2 SEC (9.8-11.6)
[2016-11-17 21:53] LABS: ANION GAP 12 MEQ/L (5-15); AST (GOT) 13 U/L (15-37); BICARBONATE 25.9 MEQ/L (21.0-32.0); BLOOD UREA NITROGEN 14 MG/DL (7-18); CHLORIDE 97 MEQ/L (98-107); GLOMERULAR FILTRATION RATE 58 ML/MIN (>89); MAGNESIUM 1.8 MG/DL (1.5-2.5); POTASSIUM 3.2 MEQ/L (3.5-5.1); SODIUM (NA) 135 MEQ/L (136-145)
[2016-11-17 21:54] LABS: ALT (GPT) 25 U/L (10-53)
[2016-11-17 21:57] LABS: ALKALINE PHOSPHATASE 93 U/L (45-117)
[2016-11-17 21:58] LABS: CREATINE KINASE 36 U/L (26-192)
[2016-11-17] MEDS ORDERED: POTASSIUM CHLORIDE 20 MEQ CONTROLLED RELEASE TAB PO ONE (22:00)
--- NOTE | 2016-11-17 22:25 | RADRPT ---
EXAM DATE/TIME: 11/17/2016 21:17 [facility] COMPARISON: CHEST SINGLE AP, January 20, 2014, 16:35. INDICATIONS : Fever starting today MEDICAL HISTORY : None. SURGICAL HISTORY : None. ENCOUNTER: Initial ACUITY: 1 day PAIN SCORE: 0/10 LOCATION: Bilateral chest FINDINGS: A single view of the chest demonstrates the lungs to be free of focal consolidation. There is a calci fied granuloma at the lateral left midlung. No effusion is seen. The heart size is normal. Which are seen on the axillary regions bilaterally. There appears to be a mild chronic stable deformity of the proximal medial right humerus. CONCLUSION: No acute disease. Timbo West MD on November 17, 2016 at 22:21 Board Certified Radiologist. This report was verified electronically.
[2016-11-17] MEDS ORDERED: CIPROFLOXACIN 500 MG TAB PO ONE (22:30)
[2016-11-17 22:32] VITALS: BP 130/59
[2016-11-17 23:28] LABS: BLOOD, URINE NEG (NEG); GLUCOSE,URINE NEG (NEG); KETONE, URINE TRACE mg/dL (NEG); MUCUS URINE FEW /lpf (OCC); NITRITE,URINE NEG (NEG); PH, URINE 7.5 (5.0-8.5); SQUAMOUS EPITHELIAL CELL URINE <1 /hpf (0-5); URINE COLOR YELLOW (YELLW/STRAW)
[2016-11-17 23:31] LABS: COMMENT (UR) CATH-CULTURE IND; CULTURE IF INDICATED CATH CULTURE IND
--- NOTE | 2016-11-18 09:26 | EKG ---
Date Performed: 11/17/2016 Time Performed: 21:18:03 PTAGE: 81 years EKG: Sinus rhythm POSSIBLE LEFT ATRIAL ENLARGEMENT RIGHT BUNDLE BRANCH BLOCK ABNORMAL ECG PREVIOUS TRACING : 09/28/2016 11.40 DOCTOR: Jeff Hdez Interpretating Date/Time 11/18/2016 09:25:42
[2016-12-20] MEDS ORDERED: WHEEMIS3 (13:59)
[2016-12-20] MEDS ORDERED: MISCMIS81 (13:59)
[2016-12-20] MEDS ORDERED: COMMODE 3-IN-11 MIS (13:59)
[2016-12-26] MEDS ORDERED: FELO5TAB PO (08:44)
[2016-12-26] MEDS ORDERED: NOVORP2 SQ ×2 (08:44)
[2016-12-26] MEDS ORDERED: VITA2000 PO (08:44)
[2016-12-26] MEDS ORDERED: MECL1TAB42 PO (08:44)
[2016-12-26] MEDS ORDERED: ANAS1TAB PO (08:44)
[2016-12-26] MEDS ORDERED: LEVO.075 PO (08:44)
[2016-12-26] MEDS ORDERED: POTA-243 PO (08:44)
[2016-12-26] MEDS ORDERED: PLAV75TA29 PO (08:44)
[2016-12-26] MEDS ORDERED: ATOR10TA15 PO (08:44)
[2016-12-26] MEDS ORDERED: LISI-519 PO (08:44)
[2016-12-26] MEDS ORDERED: METO50TA11 PO (08:44)
[2016-12-26] MEDS ORDERED: NOVONP2 SQ ×2 (08:44)
[2016-12-26] MEDS ORDERED: FAMO20TA2 PO (08:44)
== END 2016-11-17 23:16 | disposition home or self-care (01) ==
LOC: NEPE 18:15
DX: N39.0 Urinary tract infection, site not specified (principal); R11.0 Nausea; R42 Dizziness and giddiness; R94.31 Abnormal electrocardiogram [ECG] [EKG]; E11.9 Type 2 diabetes mellitus without complications; I10 Essential (primary) hypertension; E07.9 Disorder of thyroid, unspecified; Z79.4 Long term (current) use of insulin; Z85.3 Personal history of malignant neoplasm of breast; Z86.79 Personal history of other diseases of the circulatory system; Z87.19 Personal history of other diseases of the digestive system; Z87.448 Personal history of other diseases of urinary system; Z86.69 Personal history of other diseases of the nervous system and sense organs
CPT/HCPCS: 71010; 80053; 81001; 82550; 83605; 83735; 84484; 85025; 85610; 85730; 87040; 87086; 93005; 96365; 99285; J7040

== ENCOUNTER 2016-12-06 22:01 | Inpatient (IN) | payer MEDICARE, OTHER ==
[~2016-12-06] VITALS: Ht 165.1 cm; Wt 83.0 kg
[~2016-12-06 22:01] MED LIST changes: -ASPI325T33 PO; -COMMODE 3-IN-11 MIS; -FAMO20TA2 PO; -LISI-519 PO; -MECL1TAB42 PO; -MISCMIS81; -PLAV75TA29 PO; -POTA-243 PO; -PRED5TAB PO; -WHEEMIS3
[2016-12-06 22:04] VITALS: BP 178/82; PULSE 87; RESP 16; TEMP 97.8; O2SAT 95
--- NOTE | 2016-12-06 22:15 | PD ---
Physical Exam Date Seen by Provider: Dec 06, 2016 Time Seen by Provider: 22:12 Narrative 81-year-old white female presents to emergency department for evaluation of dizziness and blurred vision. She states that she was driving home from dinner when she stopped at the traffic light and had a spell lasting 5-10 minutes. She states that she had a history of vertigo in the past and has taken some meclizine when she had gone home. She called her doctor who is Dr. Ortiz who advised her to come to [facility]. She states that her symptoms have resolved. The patient is being weaned off prednisone after being treated for temporal arteritis. She denied any headache, nausea, vomiting, numbness, tingling or focal weakness. Vital signs reviewed. Awaiting bed placement. Data Data Last Documented VS Vital Signs Date Time Temp Pulse Resp B/P (MAP) Pulse Ox O2 Delivery O2 Flow Rate FiO2 12/06/16 22:04 97.8 87 16 178/82 (114) 95 Room Air [facility] Medical Record Reviewed: No Supervised Visit with SURY: Mac King Dec 06, 2016 22:15
[2016-12-06] MEDS ORDERED: PRED5TAB PO (22:39)
[2016-12-06] MEDS ORDERED: SODIUM CHLOR 0.9% 1000 ML INJ 1,000 ML IV ONE (22:55)
--- NOTE | 2016-12-06 22:57 | PD ---
HPI Chief Complaint: Dizziness Time Seen by Provider: 22:55 Travel History International Travel<30 days: No Contact w/Intl Traveler<30days: No Traveled to known affect area: No History of Present Illness HPI Patient is an 81-year-old female presents emergency department for evaluation of transient double vision and visual abnormality. Patient states she also became very dizzy when this happened. She was driving her car home after having dinner when it started. Patient states she is on steroids for a history of temporal arteritis but recently had a biopsy which was negative so she's been tapered off her prednisone is only on 5 mg day currently. She states that symptoms been completely resolved on arrival. She called her primary care physician and he recommended that she go to the emergency department for evaluation of possible stroke. Symptoms started approximately 45 minutes to an hour prior to arrival and now resolved. No associated weakness. PFSH Past Medical History Asthma: No Blood Disorders: No Heart Rhythm Problems: No Cancer: Yes (AMI. BREAST CA, SKIN) Cardiovascular Problems: Yes (LEAKY VALVE) High Cholesterol: No Chest Pain: No Congestive Heart Failure: No COPD: No Diabetes: Yes Patient Takes Glucophage: No Endocrine: Yes Gastrointestinal Disorders: Yes (GERD) GERD: Yes Genitourinary: Yes (STRESS INCONTINENCE) Hepatitis: No Hiatal Hernia: Yes Hypertension: Yes Immune Disorder: No Medical other: No Musculoskeletal: No Neurologic: Yes (DIZZINESS) Psychiatric: No Reproductive: No Respiratory: No Radiation Therapy: Yes Sleep Apnea: No Thyroid Disease: Yes (THYROID NODULES) ?: Not Menopausal: Yes Dilation and Curettage (D&C): Yes Tubal Ligation: Yes Past Surgical History AICD: No Genitourinary Surgery: Yes (BLADDER LIFT) Gynecologic Surgery: Yes (TUBAL LIGATION) Joint Replacement: No Mastectomy: Yes (AMI) Oral Surgery: Yes (TONSILLECTOMY) Pacemaker: No Thoracic Surgery: Yes (AMI. MASTECTOMIES) Other Surgery: Yes (BILATERAL MASTECTOMIES, BLADDER LIFT) Social History Alcohol Use: No Tobacco Use: No Substance Use: No Allergies-Medications (Allergen,Severity, Reaction): Coded Allergies: ampicillin (Unverified Allergy, Severe, Rash, 12/06/16) cephalexin (Unverified Allergy, Severe, Rash, 12/06/16) penicillin G (Unverified Allergy, Severe, Rash, 12/06/16) Reported Meds & Prescriptions Reported Meds & Active Scripts Active Reported Prednisone 5 Mg Tab 5 Mg PO DAILY Meclizine (Meclizine HCl) 25 Mg Tab 25 Mg PO DIRECTED PRN Brandi Allergy (Fexofenadine HCl) 180 Mg Tab 180 Mg PO DAILY PRN Ibuprofen 200 Mg Cap 200 Mg PO DAILY PRN Calcium Citrate 250 Mg Tab 105 Mg PO HS Vitamin D3 (Cholecalciferol) 2,000 Unit Cap 2,000 Units PO HS Aspirin 81 Mg Chew 81 Mg CHEW HS Synthroid (Levothyroxine Sodium) 75 Mcg Tab 75 Mcg PO HS Atorvastatin (Atorvastatin Calcium) 10 Mg Tab 10 Mg PO HS Novolin R Inj (Insulin Human Regular) 1,000 Unit/10 Ml Vial 10 Units SQ AC DINNER Novolin R Inj (Insulin Human Regular) 1,000 Unit/10 Ml Vial 12 Units SQ AC BREAKFAST Novolin N Inj (Insulin Human NPH) 1,000 Unit/10 Ml Vial 14 Units SQ AC DINNER Novolin N Inj (Insulin Human NPH) 1,000 Unit/10 Ml Vial 39 Units SQ AC BREAKFAST Rabeprazole (Rabeprazole Sodium) 20 Mg Tab 20 Mg PO DAILY Anastrozole 1 Mg Tab 1 Mg PO DAILY Metoprolol Succinate ER 24 HR (Metoprolol Succinate) 50 Mg Tab 50 Mg PO DAILY Micardis Hct (Telmisartan-Hydrochlorothiazide) 80-12.5 Mg Tab 1 Tab PO DAILY Felodipine ER (Felodipine) 5 Mg Damon 5 Mg PO DAILY Review of Systems Except as stated in HPI: all other systems reviewed are Neg Physical Exam Narrative GENERAL: Well-developed well-nourished no obvious distress. SKIN: Focused skin assessment warm/dry. HEAD: Atraumatic. Normocephalic. EYES: Pupils equal and round and reactive to light.. No scleral icterus. No injection or drainage. ENT: No nasal bleeding or discharge. Mucous membranes pink and moist. NECK: Trachea midline. No JVD. CARDIOVASCULAR: Regular rate and rhythm. No murmur appreciated. RESPIRATORY: No accessory muscle use. Clear to auscultation. Breath sounds equal bilaterally. GASTROINTESTINAL: Abdomen soft, non-tender, nondistended. Hepatic and splenic margins not palpable. MUSCULOSKELETAL: No obvious deformities. No clubbing. No cyanosis. No edema. NEUROLOGICAL: Alert and awake and oriented, cranial nerves II through XII are grossly intact and nonfocal, 5 out of 5 strength in all 4 extremities. Visual ortega intact by confrontation. Cerebellar testing negative. PSYCHIATRIC: Appropriate mood and affect; insight and judgment normal. Data Data Last Documented VS Vital Signs Date Time Temp Pulse Resp B/P (MAP) Pulse Ox O2 Delivery O2 Flow Rate FiO2 12/06/16 23:09 99 Room Air 12/06/16 22:04 97.8 87 16 Orders Orders Diet Npo (12/07/16 Breakfast) Activity Bed Rest (12/06/16 ) Electrocardiogram (12/06/16 ) Prothrombin Time / Inr (Pt) (12/06/16 22:55) Act Partial Throm Time (Ptt) (12/06/16 22:55) Complete Blood Count With Diff (12/06/16 22:55) Fibrinogen (12/06/16 22:55) Creatine Kinase (Cpk) (12/06/16 22:55) Troponin I (12/06/16 22:55) Ua Includes Microscopic (12/06/16 22:55) Ct Brain W/O Iv Contrast(Rout) (12/06/16 ) Ecg Monitoring (12/06/16 22:55) Neuro Checks Q2HX12,Q4H (12/06/16 22:55) Nursing Bedside Swallow Assess .ONCE (12/06/16 22:55) Iv Access Insert/Monitor (12/06/16 22:55) NPO (12/06/16 22:55) Oximetry (12/06/16 22:55) Oxygen Administration (12/06/16 22:55) Sodium Chlor 0.9% 1000 Ml Inj (Ns 1000 M (12/06/16 22:55) Resp Oxygen Jesús C Titrat 1-4 L (12/06/16 22:55) Aspirin Chew (Aspirin Chew) (12/06/16 23:00) Cta Brain W Iv Contrast W 3d (12/07/16 ) Cta Neck W Iv Contrast W 3d (12/07/16 ) Basic Metabolic Panel (Bmp) (12/07/16 00:03) Labs Laboratory Tests Test 12/06/16 23:25 White Blood Count 7.8 TH/MM3 Red Blood Count 4.27 MIL/MM3 Hemoglobin 12.2 GM/DL Hematocrit 36.9 % Mean Corpuscular Volume 86.4 FL Mean Corpuscular Hemoglobin 28.5 PG Mean Corpuscular Hemoglobin Concent 32.9 % Red Cell Distribution Width 16.1 % Platelet Count 264 TH/MM3 Mean Platelet Volume 6.9 FL Neutrophils (%) (Auto) 69.9 % Lymphocytes (%) (Auto) 19.5 % Monocytes (%) (Auto) 7.7 % Eosinophils (%) (Auto) 2.2 % Basophils (%) (Auto) 0.7 % Neutrophils # (Auto) 5.5 TH/MM3 Lymphocytes # (Auto) 1.5 TH/MM3 Monocytes # (Auto) 0.6 TH/MM3 Eosinophils # (Auto) 0.2 TH/MM3 Basophils # (Auto) 0.1 TH/MM3 CBC Comment DIFF FINAL Differential Comment Prothrombin Time 10.6 SEC Prothromb Time International Ratio 1.0 RATIO Activated Partial Thromboplast Time 24.7 SEC Fibrinogen 359 mg/dL Total Creatine Kinase 41 U/L Troponin I LESS THAN 0.02 NG/ML MDM Medical Decision Making Medical Screen Exam Complete: Yes Emergency Medical Condition: Yes Differential Diagnosis Stroke, TIA, atrial fibrillation, Narrative Course Patient roomed in emergency department, I explained to her that I agree that her symptoms could be suggestive of TIA, this vague history of temporal arteritis which apparently has been this proven somewhat heightens my respect for her symptoms as possible TIA. CTA and CT of the head of been ordered as well as basic labs. At the end of my shift at 100 the patient was discussed with Dr. Teixeira to follow-up labs and CTs and disposition the patient's properly. Condition: Stable Trino Voss MD Dec 06, 2016 22:57
[2016-12-06] MEDS ORDERED: ASPIRIN 81 MG CHEW TAB CHEW ONE (23:00)
[2016-12-06 23:03] VITALS: O2SAT 95
[2016-12-06 23:09] VITALS: O2SAT 99
[2016-12-06 23:41] LABS: AUTOMATED NEUTROPHIL # 5.5 TH/MM3 (1.8-7.7); BASOPHIL # 0.1 TH/MM3 (0-0.2); BASOPHIL % 0.7 % (0.0-2.0); EOSINOPHIL # 0.2 TH/MM3 (0-0.4); EOSINOPHIL % 2.2 % (0.0-4.0); HEMATOCRIT 36.9 % (35.0-46.0); HEMO FLAGS DIFF FINAL; LYMPH % 19.5 % (9.0-44.0); LYMPHOCYTE # 1.5 TH/MM3 (1.0-4.8); MEAN CELL VOLUME 86.4 FL (80.0-100.0); MEAN CORPUSCULAR HEMOGLOBIN 28.5 PG (27.0-34.0); MEAN CORPUSCULAR HGB CONC 32.9 % (32.0-36.0); MONO % 7.7 % (0.0-8.0); NEUT % 69.9 % (16.0-70.0); PLATELET COUNT 264 TH/MM3 (150-450); RED BLOOD COUNT 4.27 MIL/MM3 (4.00-5.30); RED CELL DISTRIBUTION WIDTH 16.1 % (11.6-17.2); WHITE BLOOD COUNT 7.8 TH/MM3 (4.0-11.0)
[2016-12-06 23:43] LABS: APTT (PATIENT) 24.7 SEC (24.3-30.1); PROTHROMBIN TIME - PATIENT 10.6 SEC (9.8-11.6)
[2016-12-06 23:59] LABS: CREATINE KINASE 41 U/L (26-192)
[2016-12-07] VITALS (12 sets, daily range): BP systolic 149–188; BP diastolic 65–86; PULSE 65–89; RESP 16–18; TEMP 98.1–98.8; O2SAT 94–97
[2016-12-07 01:03] LABS: BICARBONATE 25.9 MEQ/L (21.0-32.0); POTASSIUM 3.4 MEQ/L (3.5-5.1)
[2016-12-07] MEDS ORDERED: IOHEXOL 350 MG/ML 10 ML VIAL (for RAD DIAG) IVCONTRAST ONE (01:20)
[2016-12-07 01:30] LABS: BLOOD, URINE NEG (NEG); GLUCOSE,URINE NEG (NEG); KETONE, URINE NEG (NEG); NITRITE,URINE NEG (NEG); URINE COLOR LIGHT-YELLOW (YELLW/STRAW)
--- NOTE | 2016-12-07 01:30 | RADRPT ---
EXAM DATE/TIME: 12/07/2016 01:14 [facility] COMPARISON: CT BRAIN W/O CONTRAST, August 01, 2016, 18:09. INDICATIONS : Dizziness with blurry vision for 5 minutes. RADIATION DOSE: 33.76 CTDIvol (mGy) MEDICAL HISTORY : Cardiovascular disease. Diabetes mellitus type 2. SURGICAL HISTORY : Tubal ligation. Mastectomy, right. ENCOUNTER: Initial ACUITY: 1 day PAIN SCALE: 0/10 LOCATION: cranial TECHNIQUE: Multiple contiguous axial images were obtained of the head. Using automated exposure control and adj ustment of the mA and/or kV according to patient size, radiation dose was kept as low as reasonably a chievable to obtain optimal diagnostic quality images. DICOM format image data is available electro nically for review and comparison. FINDINGS: CEREBRUM: The ventricles are normal for age. No evidence of midline shift, mass lesion, hemorrhage or acute in farction. No extra-axial fluid collections are seen. POSTERIOR FOSSA: The cerebellum and brainstem are intact. The 4th ventricle is midline. The cerebellopontine angle i s unremarkable. EXTRACRANIAL: The visualized portion of the orbits is intact. SKULL: The calvaria is intact. No evidence of skull fracture. CONCLUSION: Normal examination. Michael Norwood Jr., MD on December 07, 2016 at 1:28 Board Certified Radiologist. This report was verified electronically.
--- NOTE | 2016-12-07 01:59 | RADRPT ---
EXAM DATE/TIME: 12/07/2016 01:17 [facility] COMPARISON: No previous studies available for comparison. INDICATIONS : Dizziness with blurry vision for 5 minutes. IV CONTRAST: 70 cc Omnipaque 350 (iohexol) IV ; Cumulative dose for multiple exams. RADIATION DOSE: 28.55 CTDIvol (mGy) ; Combined studies MEDICAL HISTORY : Cardiovascular disease. Gastroesophageal reflux disease. Diabetes mellitus type 2. SURGICAL HISTORY : Tubal ligation. Mastectomy, right. ENCOUNTER: Initial ACUITY: 1 day PAIN SCALE: 0/10 LOCATION: cranial TECHNIQUE: Volumetric scanning was performed using a multi-row detector CT scanner. The data was post processed with a variety of visualization algorithms including full volume maximum intensity projection, multi -planar sliding thin slab reformation, curved planar reformation, and surface rendering techniques. Using automated exposure control and adjustment of the mA and/or kV according to patient size, radiat ion dose was kept as low as reasonably achievable to obtain optimal diagnostic quality images. DICO M format image data is available electronically for review and comparison. FINDINGS: There is excellent visualization of the major intracranial arteries out to the second-order branch ve ssels. There is variant anatomy with persistent circulation on the left. There is no evidence for aneurysm, vessel truncation or stenosis, and no evidence for vascular malformation. CONCLUSION: Normal examination. Michael Norwood Jr., MD on December 07, 2016 at 1:56 Board Certified Radiologist. This report was verified electronically.
--- NOTE | 2016-12-07 02:43 | RADRPT ---
EXAM DATE/TIME: 12/07/2016 01:17 [facility] COMPARISON: No previous studies available for comparison. INDICATIONS : Dizziness with blurry vision for 5 minutes. IV CONTRAST: 70 cc Omnipaque 350 (iohexol) IV ; Cumulative dose for multiple exams. RADIATION DOSE: 28.55 CTDIvol (mGy) ; Combined studies MEDICAL HISTORY : Cardiovascular disease. Gastroesophageal reflux disease. Diabetes mellitus type 2. SURGICAL HISTORY : Tubal ligation. Mastectomy, right. ENCOUNTER: Initial ACUITY: 1 day PAIN SCALE: 0/10 LOCATION: neck Elevated flow velocities and ICA/CCA ratios have been found to correlate with increased degrees of vessel stenosis, calculated as percentage of diameter relative to a normal segment of distal ICA/CCA. TECHNIQUE: Volumetric scanning was performed using a multirow detector CT scanner. The data was post processed with a variety of visualization algorithms including full-volume maximum intensity projection, multip lanar sliding thin-slab reformation, curved-planar reformation, and surface-rendering techniques. Us ing automated exposure control and adjustment of the mA and/or kV according to patient size, radiatio n dose was kept as low as reasonably achievable to obtain optimal diagnostic quality images. DICOM f ormat image data is available electronically for review and comparison. FINDINGS: AORTIC ARCH: There is a three-vessel origin of the great vessels from the aorta. No evidence of ostial narrowing. RIGHT CAROTID: The common carotid artery is intact. The carotid bulb has a normal configuration without ulceration o r narrowing. The internal carotid artery lumen is smooth without stenosis. The external carotid isis ry is intact. LEFT CAROTID: The common carotid artery is intact. The carotid bulb has a normal configuration without ulceration or narrowing. The internal carotid artery lumen is smooth without stenosis. The external carotid ar yung is intact. VERTEBRALS: The vertebral arteries have a symmetric diameter. No stenotic lesions are seen. 2.2 cm low density nodule involving the left lobe of the thyroid. CONCLUSION: 1. Patent carotid arteries and vertebral arteries. 2. Left thyroid nodule. Michael Norwood Jr., MD on December 07, 2016 at 2:40 Board Certified Radiologist. This report was verified electronically.
--- NOTE | 2016-12-07 02:50 | PD ---
Physical Exam Date Seen by Provider: Dec 07, 2016 Data Data Last Documented VS Vital Signs Date Time Temp Pulse Resp B/P (MAP) Pulse Ox O2 Delivery O2 Flow Rate FiO2 12/07/16 02:31 72 18 149/65 (93) 95 Room Air 12/06/16 22:04 97.8 Orders Orders Diet Npo (12/07/16 Breakfast) Activity Bed Rest (12/06/16 ) Electrocardiogram (12/06/16 ) Prothrombin Time / Inr (Pt) (12/06/16 22:55) Act Partial Throm Time (Ptt) (12/06/16 22:55) Complete Blood Count With Diff (12/06/16 22:55) Fibrinogen (12/06/16 22:55) Creatine Kinase (Cpk) (12/06/16 22:55) Troponin I (12/06/16 22:55) Ua Includes Microscopic (12/06/16 22:55) Ct Brain W/O Iv Contrast(Rout) (12/06/16 ) Ecg Monitoring (12/06/16 22:55) Neuro Checks Q2HX12,Q4H (12/06/16 22:55) Nursing Bedside Swallow Assess .ONCE (12/06/16 22:55) Iv Access Insert/Monitor (12/06/16 22:55) NPO (12/06/16 22:55) Oximetry (12/06/16 22:55) Oxygen Administration (12/06/16 22:55) Sodium Chlor 0.9% 1000 Ml Inj (Ns 1000 M (12/06/16 22:55) Resp Oxygen Jesús C Titrat 1-4 L (12/06/16 22:55) Aspirin Chew (Aspirin Chew) (12/06/16 23:00) Cta Brain W Iv Contrast W 3d (12/07/16 ) Cta Neck W Iv Contrast W 3d (12/07/16 ) Basic Metabolic Panel (Bmp) (12/07/16 00:03) Iohexol 350 Inj (Omnipaque 350 Inj) (12/07/16 01:20) Labs Laboratory Tests Test 12/06/16 23:25 12/07/16 00:03 12/07/16 00:53 White Blood Count 7.8 TH/MM3 Red Blood Count 4.27 MIL/MM3 Hemoglobin 12.2 GM/DL Hematocrit 36.9 % Mean Corpuscular Volume 86.4 FL Mean Corpuscular Hemoglobin 28.5 PG Mean Corpuscular Hemoglobin Concent 32.9 % Red Cell Distribution Width 16.1 % Platelet Count 264 TH/MM3 Mean Platelet Volume 6.9 FL Neutrophils (%) (Auto) 69.9 % Lymphocytes (%) (Auto) 19.5 % Monocytes (%) (Auto) 7.7 % Eosinophils (%) (Auto) 2.2 % Basophils (%) (Auto) 0.7 % Neutrophils # (Auto) 5.5 TH/MM3 Lymphocytes # (Auto) 1.5 TH/MM3 Monocytes # (Auto) 0.6 TH/MM3 Eosinophils # (Auto) 0.2 TH/MM3 Basophils # (Auto) 0.1 TH/MM3 CBC Comment DIFF FINAL Differential Comment Prothrombin Time 10.6 SEC Prothromb Time International Ratio 1.0 RATIO Activated Partial Thromboplast Time 24.7 SEC Fibrinogen 359 mg/dL Total Creatine Kinase 41 U/L Troponin I LESS THAN 0.02 NG/ML Blood Urea Nitrogen 12 MG/DL Creatinine 0.86 MG/DL Random Glucose 143 MG/DL Calcium Level 9.3 MG/DL Sodium Level 138 MEQ/L Potassium Level 3.4 MEQ/L Chloride Level 105 MEQ/L Carbon Dioxide Level 25.9 MEQ/L Anion Gap 7 MEQ/L Estimat Glomerular Filtration Rate 63 ML/MIN Urine Color LIGHT-YELLOW Urine Turbidity CLEAR Urine pH 7.0 Urine Specific [place] 1.005 Urine Protein NEG mg/dL Urine Glucose (UA) NEG mg/dL Urine Ketones NEG mg/dL Urine Occult Blood NEG Urine Nitrite NEG Urine Bilirubin NEG Urine Urobilinogen LESS THAN 2.0 MG/DL Urine Leukocyte Esterase SMALL Urine RBC LESS THAN 1 /hpf Urine WBC 1 /hpf [facility] Medical Record Reviewed: Yes Supervised Visit with SURY: No Narrative Course Please see previous providers chart for full hpi and workup of patient. Patient is an 81-year-old female who presents to emergency room complaints of an episode of double vision and visual abnormality. She reports that she was driving home today and all of a sudden, she became dizzy, reports that she pulled her car over and began to have double vision. Patient reports that symptoms lasted for a few minutes and resolved on its own. Patient currently with no complaints at this time reports complete resolutions of the symptoms. Reports that she was treated for temporal arteritis, but that her biopsies were negative, she is currently being tapered off appendicitis at this time. Vital Signs Date Time Temp Pulse Resp B/P (MAP) Pulse Ox O2 Delivery O2 Flow Rate FiO2 12/07/16 02:31 72 18 149/65 (93) 95 Room Air 12/07/16 01:07 65 18 152/66 (94) 97 Room Air 12/06/16 23:09 99 Room Air 12/06/16 23:09 99 Room Air 12/06/16 23:03 95 12/06/16 22:04 97.8 87 16 178/82 (114) 95 Room Air Laboratory Tests Test 12/06/16 23:25 12/07/16 00:03 12/07/16 00:53 White Blood Count 7.8 TH/MM3 (4.0-11.0) Red Blood Count 4.27 MIL/MM3 (4.00-5.30) Hemoglobin 12.2 GM/DL (11.6-15.3) Hematocrit 36.9 % (35.0-46.0) Mean Corpuscular Volume 86.4 FL (80.0-100.0) Mean Corpuscular Hemoglobin 28.5 PG (27.0-34.0) Mean Corpuscular Hemoglobin Concent 32.9 % (32.0-36.0) Red Cell Distribution Width 16.1 % (11.6-17.2) Platelet Count 264 TH/MM3 (150-450) Mean Platelet Volume 6.9 FL (7.0-11.0) Neutrophils (%) (Auto) 69.9 % (16.0-70.0) Lymphocytes (%) (Auto) 19.5 % (9.0-44.0) Monocytes (%) (Auto) 7.7 % (0.0-8.0) Eosinophils (%) (Auto) 2.2 % (0.0-4.0) Basophils (%) (Auto) 0.7 % (0.0-2.0) Neutrophils # (Auto) 5.5 TH/MM3 (1.8-7.7) Lymphocytes # (Auto) 1.5 TH/MM3 (1.0-4.8) Monocytes # (Auto) 0.6 TH/MM3 (0-0.9) Eosinophils # (Auto) 0.2 TH/MM3 (0-0.4) Basophils # (Auto) 0.1 TH/MM3 (0-0.2) CBC Comment DIFF FINAL Differential Comment Prothrombin Time 10.6 SEC (9.8-11.6) Prothromb Time International Ratio 1.0 RATIO Activated Partial Thromboplast Time 24.7 SEC (24.3-30.1) Fibrinogen 359 mg/dL (227-377) Total Creatine Kinase 41 U/L (26-192) Troponin I LESS THAN 0.02 NG/ML Blood Urea Nitrogen 12 MG/DL (7-18) Creatinine 0.86 MG/DL (0.50-1.00) Random Glucose 143 MG/DL (74-106) Calcium Level 9.3 MG/DL (8.5-10.1) Sodium Level 138 MEQ/L (136-145) Potassium Level 3.4 MEQ/L (3.5-5.1) Chloride Level 105 MEQ/L (98-107) Carbon Dioxide Level 25.9 MEQ/L (21.0-32.0) Anion Gap 7 MEQ/L (5-15) Estimat Glomerular Filtration Rate 63 ML/MIN (>89) Urine Color LIGHT-YELLOW (YELLW/STRAW) Urine Turbidity CLEAR (CLEAR) Urine pH 7.0 (5.0-8.5) Urine Specific [place] 1.005 (1.002-1.035) Urine Protein NEG mg/dL (NEG-TRACE) Urine Glucose (UA) NEG mg/dL (NEG) Urine Ketones NEG mg/dL (NEG) Urine Occult Blood NEG (NEG) Urine Nitrite NEG (NEG) Urine Bilirubin NEG (NEG) Urine Urobilinogen LESS THAN 2.0 MG/DL (LESS Urine Leukocyte Esterase SMALL (NEG) Urine RBC LESS THAN 1 /hpf (0-3) Urine WBC 1 /hpf (0-5) Last Impressions Head CTA 12/07/16 0000 Signed Impressions: Service Date/Time: November 01:17 - CONCLUSION: Normal examination. Michael Norwood Jr., MD Head CT 12/06/16 0000 Signed Impressions: Service Date/Time: November 01:14 - CONCLUSION: Normal examination. Michael Norwood Jr., MD Patient with most likely TIA at this time. Case reviewed with Timbo ENRIQUEZ who accepts pt on behalf of Dr. Davila Diagnosis Primary Impression: TIA (transient ischemic attack) Admitting Information Admitting Physician Requests: Observation Condition: Stable Vita Teixeira DO Dec 07, 2016 02:50
[2016-12-07] MEDS ORDERED: GADODIAMIDE PF 287 MG/ML 20 ML VIAL (for RAD MRI) IVCONTRAST ONE (02:52)
[2016-12-07] MEDS ORDERED: SODIUM CHLOR 0.9% 1000 ML INJ 1,000 ML IV SCH (03:04)
[2016-12-07] MEDS ORDERED: NALOXONE HCL 0.4 MG/ML AMP IV PUSH PRN (03:15)
[2016-12-07] MEDS ORDERED: BISACODYL 10 MG SUPP RECTAL PRN (03:15)
[2016-12-07] MEDS ORDERED: ONDANSETRON HCL 4 MG/2 ML VIAL IVP PRN (03:15)
[2016-12-07] MEDS ORDERED: SODIUM CHLORIDE 0.9% FLUSH 10 ML FLUSH IV FLUSH PRN (03:15)
[2016-12-07] MEDS ORDERED: LACTULOSE SYRUP 20 GM/30 ML CUP PO PRN (03:15)
[2016-12-07] MEDS ORDERED: MAGNESIUM HYDROXIDE SUSP 30 ML CUP PO PRN (03:15)
[2016-12-07] MEDS ORDERED: ACETAMINOPHEN 325 MG TAB PO PRN (03:15)
[2016-12-07] MEDS ORDERED: SENNOSIDES 8.6 MG TAB PO PRN (03:15)
[2016-12-07] MEDS: HEPARIN SODIUM - SQ 10,000 UNITS/ML VIAL SQ SCH ×2 (08:07→20:39)
[2016-12-07] MEDS: SODIUM CHLORIDE 0.9% FLUSH 10 ML FLUSH IV FLUSH SCH ×2 (08:08→20:39)
[2016-12-07] MEDS ORDERED: POTASSIUM CHLORIDE 25 MEQ EFFERVESCENT TAB PO ONE (08:15)
[2016-12-07] MEDS ORDERED: GLUCAGON 1 MG/ML VIAL OTHER PRN (09:00)
[2016-12-07] MEDS ORDERED: ASPIRIN EC 325 MG TABEC PO SCH (09:00)
[2016-12-07] MEDS ORDERED: ASPIRIN EC 81 MG TABEC PO SCH (09:00)
[2016-12-07] MEDS ORDERED: DEXTROSE 50% IN WATER 50 ML VIAL(D50) IV PUSH PRN (09:00)
[2016-12-07] MEDS ORDERED: NON-FORMULARY DRUG (Telmisartan-Hydrochlorothiazide (Micardis Hct) 1 TAB) PO SCH (09:00)
--- NOTE | 2016-12-07 09:02 | HHI.HP ---
[facility] Service [facility] Primary Care Physician Alexsander Lamar MD, PhD Admission Diagnosis TIA Diagnoses: Chief Complaint: dizziness, blurred vision Travel History International Travel<30 Days: No Contact w/Intl Traveler <30 Da: No Traveled to Known Affected Are: No History of Present Illness Mrs. Crawford is a pleasant 81-year-old female with history of hypertension, hyperlipidemia, type 2 diabetes, bilateral breast cancer. Patient presented to the emergency room for evaluation of sudden onset of dizziness with blurry vision. Patient indicates that she was driving home from dinner when she was at a stoplight and suddenly her vision became blurry and she felt extremely dizzy, states that the spell lasted approximately 5 minutes. She became so concerned as she felt that she was going to pass out. She pulled into a parking lot called her primary care physician who instructed her to come to the emergency room. Patient indicates that she has been undergoing evaluation for episodes of feeling unsteady and dizzy for the last [address] Mello as outpatient. She's had MRI and MRA of the brain that were negative as well as a carotid ultrasound. She has been undergoing physical therapy. Indicates that this episode was very much different as it came on suddenly and this time she felt like she was going to pass out. She did not have any chest pain, no shortness of breath, no palpitations. No focal weakness, no paresthesias. Indicates that her episodes of dizziness are usually different, she feels unsteady, the room is not spinning. She has to take Antivert as needed. She is also had severe headaches back in September and had recent workup and had a temporal biopsy that was negative for arteritis however she was put on steroids. She is currently being weaned off. Patient does follow up with a floor winder for leaky heart valve and right bundle branch. The last time she saw was last year in November. Patient was evaluated in the emergency room, laboratory workup was completed. CBC unremarkable. BMP unremarkable other than mild hypokalemia. UA today. Head and neck CTA and head CT were negative. Patient has been started on aspirin. She has not had anymore episodes. Patient is admitted for further evaluation and treatment Review of Systems Constitutional: COMPLAINS OF: Weight loss, Dizziness, DENIES: Diaphoretic episodes, Fatigue, Fever, Weight gain, Chills, Change in appetite, Night Sweats Endocrine: DENIES: Abnorml menstrual pattern, Heat/cold intolerance, Polydipsia , Polyuria, Polyphagia Eyes: COMPLAINS OF: Blurred vision, DENIES: Diplopia, Eye inflammation, Eye pain, Vision loss, Photosensitivity, Double Vision Ears, nose, mouth, throat: DENIES: Tinnitus, Hearing loss, Vertigo, Nasal discharge, Oral lesions, Throat pain, Hoarseness, Ear Pain, Running Nose, Epistaxis, Sinus Pain, Toothache, Odynophagia Respiratory: DENIES: Apneas, Cough, Snoring, Wheezing, Hemoptysis, Sputum production, Shortness of breath Cardiovascular: DENIES: Chest pain, Palpitations, Syncope, Dyspnea on Exertion , PND, Lower Extremity Edema, Orthopnea, Claudication Gastrointestinal: DENIES: Abdominal pain, Black stools, Bloody stools, Constipation, Diarrhea, Nausea, Vomiting, Difficulty Swallowing, Anorexia Genitourinary: DENIES: Abnormal vaginal bleeding, Dysmenorrhea, Dyspareunia, Sexual dysfunction, Urinary frequency, Urinary incontinence, Urgency, Hematuria , Dysuria, Nocturia, Vaginal discharge Musculoskeletal: DENIES: Joint pain, Muscle aches, Stiffness, Joint Swelling, Back pain, Neck pain Integumentary: DENIES: Abnormal pigmentation, Pruritus, Rash, Nail changes, Breast masses, Breast skin changes, Nipple discharge Immunologic/allergic: DENIES: Eczema, Urticaria Neurologic: COMPLAINS OF: Poor Balance, DENIES: Abnormal gait, Headache, Localized weakness, Paresthesias, Seizures, Speech Problems, Tremor Psychiatric: DENIES: Anxiety, Confusion, Mood changes, Depression, Hallucinations, Agitation, Suicidal Ideation, Homicidal Ideation, Delusions Past Family Social History Past Medical History bilat breast cancer - Had left breast cancer in 1988 treated with excision and radiation area; had recurrence in 2000 and underwent mastectomy and lymph node dissection. She developed right breast cancer in 2012, had right mastectomy DM II Diabetic retinopathy HTN GERD ongoing dizziness since July, sees Dr. Mello. recent work up for temporal arteritis, bx negative. Currently being weaned off steroids Osteopenia Diverticulosis Benign thyroid nodules, had biopsy that was negative Past Surgical History Lumpectomy Bilateral mastectomy Bladder lift Tubal ligation Breast biopsy Recent right temporal artery biopsy, September 28, 2016, negative findings Colonoscopy Tonsillectomy Reported Medications Reported Meds & Active Scripts Active Reported Prednisone 5 Mg Tab 5 Mg PO DAILY Meclizine (Meclizine HCl) 25 Mg Tab 25 Mg PO DIRECTED PRN Brandi Allergy (Fexofenadine HCl) 180 Mg Tab 180 Mg PO DAILY PRN Ibuprofen 200 Mg Cap 200 Mg PO DAILY PRN Calcium Citrate 250 Mg Tab 105 Mg PO HS Vitamin D3 (Cholecalciferol) 2,000 Unit Cap 2,000 Units PO HS Aspirin 81 Mg Chew 81 Mg CHEW HS Synthroid (Levothyroxine Sodium) 75 Mcg Tab 75 Mcg PO HS Atorvastatin (Atorvastatin Calcium) 10 Mg Tab 10 Mg PO HS Novolin R Inj (Insulin Human Regular) 1,000 Unit/10 Ml Vial 10 Units SQ AC DINNER Novolin R Inj (Insulin Human Regular) 1,000 Unit/10 Ml Vial 12 Units SQ AC BREAKFAST Novolin N Inj (Insulin Human NPH) 1,000 Unit/10 Ml Vial 14 Units SQ AC DINNER Novolin N Inj (Insulin Human NPH) 1,000 Unit/10 Ml Vial 39 Units SQ AC BREAKFAST Rabeprazole (Rabeprazole Sodium) 20 Mg Tab 20 Mg PO DAILY Anastrozole 1 Mg Tab 1 Mg PO DAILY Metoprolol Succinate ER 24 HR (Metoprolol Succinate) 50 Mg Tab 50 Mg PO DAILY Micardis Hct (Telmisartan-Hydrochlorothiazide) 80-12.5 Mg Tab 1 Tab PO DAILY Felodipine ER (Felodipine) 5 Mg Damon 5 Mg PO DAILY Allergies: Coded Allergies: ampicillin (Unverified Allergy, Severe, Rash, 12/06/16) cephalexin (Unverified Allergy, Severe, Rash, 12/06/16) penicillin G (Unverified Allergy, Severe, Rash, 12/06/16) Active Ordered Medications Inpatient Medications Acetaminophen (Tylenol) 650 mg Q4H PRN PO TEMP > 100.4; Start 12/07/16 at 03:15 Amlodipine Besylate (Norvasc) 5 mg DAILY PO ; Start 12/07/16 at 09:30 Anastrozole (Arimidex) 1 mg DAILY PO ; Start 12/07/16 at 10:00 Aspirin (Aspirin Chew) 324 mg ONCE ONCE CHEW Last administered on 12/06/16t 23 :29; Start 12/06/16 at 23:00; Stop 12/06/16 at 23:01; Status DC Aspirin (Ecotrin Ec) 325 mg DAILY PO ; Start 12/07/16 at 09:00 Atorvastatin Calcium (Lipitor) 10 mg HS PO ; Start 12/07/16 at 21:00 Bisacodyl (Dulcolax Supp) 10 mg DAILY PRN RECTAL SEVERE CONSITIPATION; Start at 03:15 Dextrose (D50w (Vial) Inj) 50 ml UNSCH PRN IV PUSH HYPOGLYCEMIA-SEE COMMENTS; Start 12/07/16 at 09:00 Glucagon (Glucagon Inj) 1 mg UNSCH PRN OTHER HYPOGLYCEMIA-SEE COMMENTS; Start 12/07/16 at 09:00 Heparin Sodium (Porcine) (Heparin Inj) 5,000 units Q12HR SQ Last administered on 12/07/16t 08:07; Start 12/07/16 at 09:00 Insulin Aspart (NovoLOG SUPPLEMENTAL SCALE) 1 ACHS SLIDING SCALE SQ ; Start at 12:00 Lactulose (Lactulose Liq) 30 ml DAILY PRN PO SEVERE CONSITIPATION; Start at 03:15 Levothyroxine Sodium (Synthroid) 75 mcg DAILY@0600 PO ; Start 12/08/16 at 06:00 Magnesium Hydroxide (Milk Of Magnesia Liq) 30 ml Q12H PRN PO MILD - MODERATE CONSTIPATION; Start 12/07/16 at 03:15 Metoprolol Succinate (Toprol Xl) 50 mg DAILY PO ; Start 12/07/16 at 10:00 Naloxone HCl (Narcan Inj) 0.4 mg UNSCH PRN IV PUSH SEE LABEL COMMENTS; Start at 03:15 Non-Formulary Medication 1 tab DAILY PO ; Start 12/07/16 at 09:00; Status UNV Ondansetron HCl (Zofran Inj) 4 mg Q6H PRN IVP NAUSEA OR VOMITING; Start at 03:15 Pantoprazole Sodium (Protonix) 20 mg DAILY PO ; Start 12/07/16 at 09:30 Potassium Bicarb/ Potassium Chloride (K-Lyte Cl Eff) 25 meq ONCE ONCE PO ; Start 12/07/16 at 08:15; Stop 12/07/16 at 08:16; Status DC Prednisone (Deltasone) 5 mg DAILY PO ; Start 12/07/16 at 10:00 Sennosides (Senokot) 17.2 mg Q12H PRN PO MODERATE - SEVERE CONSTIPATION; Start 12/07/16 at 03:15 Sodium Chloride (NS Flush) 2 ml BID IV FLUSH ; Start 12/07/16 at 09:00 Family History Mother from CVA, 1985. Social History Lives alone Has grown children Independent, drives No smoking No Alcohol No illegal drug use Physical Exam Vital Signs Vital Signs Date Time Temp Pulse Resp B/P (MAP) Pulse Ox O2 Delivery O2 Flow Rate FiO2 12/07/16 07:15 76 12/07/16 05:35 76 12/07/16 04:34 98.5 75 18 182/72 (108) 96 12/07/16 03:39 12/07/16 02:31 72 18 149/65 (93) 95 Room Air 12/07/16 01:07 65 18 152/66 (94) 97 Room Air 12/06/16 23:09 99 Room Air 12/06/16 23:09 99 Room Air 12/06/16 23:03 95 12/06/16 22:04 97.8 87 16 178/82 (114) 95 Room Air Physical Exam GENERAL: This is a well-nourished, well-developed patient, in no apparent distress. SKIN: No rashes, ecchymoses or lesions. Cool and dry. HEAD: Atraumatic. Normocephalic. No temporal or scalp tenderness. EYES: Pupils equal round and reactive. Extraocular motions intact. No scleral icterus. No injection or drainage. ENT: Nose without bleeding, purulent drainage or septal hematoma. Throat without erythema, tonsillar hypertrophy or exudate. Uvula midline. Airway patent. NECK: Trachea midline. No JVD or lymphadenopathy. Supple, nontender, no meningeal signs. CARDIOVASCULAR: Regular rate and rhythm without murmurs, gallops, or rubs. RESPIRATORY: Clear to auscultation. Breath sounds equal bilaterally. No wheezes , rales, or rhonchi. GASTROINTESTINAL: Abdomen soft, non-tender, nondistended. No hepato-splenomegaly , or palpable masses. No guarding. MUSCULOSKELETAL: Extremities without clubbing, cyanosis, or edema. No joint tenderness, effusion, or edema noted. No calf tenderness. Negative Homans sign bilaterally. NEUROLOGICAL: Awake and alert. Cranial nerves II through XII intact. Motor and sensory grossly within normal limits. Five out of 5 muscle strength in all muscle groups. Normal speech. Laboratory Laboratory Tests Test 12/06/16 23:25 12/07/16 00:03 12/07/16 00:53 White Blood Count 7.8 Red Blood Count 4.27 Hemoglobin 12.2 Hematocrit 36.9 Mean Corpuscular Volume 86.4 Mean Corpuscular Hemoglobin 28.5 Mean Corpuscular Hemoglobin Concent 32.9 Red Cell Distribution Width 16.1 Platelet Count 264 Mean Platelet Volume 6.9 Neutrophils (%) (Auto) 69.9 Lymphocytes (%) (Auto) 19.5 Monocytes (%) (Auto) 7.7 Eosinophils (%) (Auto) 2.2 Basophils (%) (Auto) 0.7 Neutrophils # (Auto) 5.5 Lymphocytes # (Auto) 1.5 Monocytes # (Auto) 0.6 Eosinophils # (Auto) 0.2 Basophils # (Auto) 0.1 CBC Comment DIFF FINAL Differential Comment Prothrombin Time 10.6 Prothromb Time International Ratio 1.0 Activated Partial Thromboplast Time 24.7 Fibrinogen 359 Total Creatine Kinase 41 Troponin I LESS THAN 0.02 Blood Urea Nitrogen 12 Creatinine 0.86 Random Glucose 143 Calcium Level 9.3 Sodium Level 138 Potassium Level 3.4 Chloride Level 105 Carbon Dioxide Level 25.9 Anion Gap 7 Estimat Glomerular Filtration Rate 63 Urine Color LIGHT-YELLOW Urine Turbidity CLEAR Urine pH 7.0 Urine Specific [place] 1.005 Urine Protein NEG Urine Glucose (UA) NEG Urine Ketones NEG Urine Occult Blood NEG Urine Nitrite NEG Urine Bilirubin NEG Urine Urobilinogen LESS THAN 2.0 Urine Leukocyte Esterase SMALL Urine RBC LESS THAN 1 Urine WBC 1 Result Diagram: 12/06/16 2325 12/07/16 0003 Imaging Last Impressions Neck CTA 12/07/16 0000 Signed Impressions: Service Date/Time: November 01:17 - CONCLUSION: 1. Patent carotid arteries and vertebral arteries. 2. Left thyroid nodule. Michael Norwood Jr., MD Head CTA 12/07/16 0000 Signed Impressions: Service Date/Time: November 01:17 - CONCLUSION: Normal examination. Michael Norwood Jr., MD Head CT 12/06/16 0000 Signed Impressions: Service Date/Time: November 01:14 - CONCLUSION: Normal examination. MD Mariella Fischer Jr. VTE Risk Assessment Mariella VTE Risk Assessment: Mod/High Risk (score >= 2) Caprini Risk Assessment Model Point Value = 1 Point Value = 2 Point Value = 3 Point Value = 5 Age 41-60 Minor surgery BMI > 25 kg/m2 Swollen legs Varicose veins or History of unexplained or recurrent spontaneous Oral contraceptives or hormone replacement Sepsis (< 1 month) Serious lung disease, including pneumonia (< 1 month) Abnormal pulmonary function Acute myocardial infarction Congestive heart failure (< 1 month) History of inflammatory bowel disease Medical patient at bed rest Age 61-74 Arthroscopic surgery Major open surgery (> 45 min) Laparoscopic surgery (> 45 min) Malignancy Confined to bed (> 72 hours) Immobilizing plaster cast Central venous access Age >= 75 History of VTE Family history of VTE Factor V Leiden Prothrombin [id number] Lupus anticoagulant Anticardiolipin antibodies Elevated serum homocysteine Heparin-induced thrombocytopenia Other congenital or acquired thrombophilia Stroke (< 1 month) Elective arthroplasty Hip, pelvis, or leg fracture Acute spinal cord injury (< 1 month) Prophylaxis Regimen Total Risk Factor Score Risk Level Prophylaxis Regimen 0-1 Low Early ambulation 2 Moderate Order ONE of the following: *Sequential Compression Device (SCD) *Heparin 5000 units SQ BID 3-4 Higher Order ONE of the following medications: *Heparin 5000 units SQ TID *Enoxaparin/Lovenox 40 mg SQ daily (WT < 150 kg, CrCl > 30 mL/min) *Enoxaparin/Lovenox 30 mg SQ daily (WT < 150 kg, CrCl > 10-29 mL/min) *Enoxaparin/Lovenox 30 mg SQ BID (WT < 150 kg, CrCl > 30 mL/min) AND/OR *Sequential Compression Device (SCD) 5 or more Highest Order ONE of the following medications: *Heparin 5000 units SQ TID (Preferred with Epidurals) *Enoxaparin/Lovenox 40 mg SQ daily (WT < 150 kg, CrCl > 30 mL/min) *Enoxaparin/Lovenox 30 mg SQ daily (WT < 150 kg, CrCl > 10-29 mL/min) *Enoxaparin/Lovenox 30 mg SQ BID (WT < 150 kg, CrCl > 30 mL/min) AND *Sequential Compression Device (SCD) Assessment and Plan Problem List: (1) TIA (transient ischemic attack) ICD Codes: G45.9 - Transient cerebral ischemic attack, unspecified Status: Acute (2) Dizziness ICD Codes: R42 - Dizziness and giddiness Status: Acute (3) Type 2 diabetes mellitus ICD Codes: E11.9 - Type 2 diabetes mellitus without complications Status: Chronic (4) Hypertension ICD Codes: I10 - Essential (primary) hypertension Status: Chronic (5) Hyperlipidemia ICD Codes: E78.5 - Hyperlipidemia, unspecified Status: Chronic (6) Valvular disease ICD Codes: I38 - Endocarditis, valve unspecified Status: Chronic (7) Hypothyroid ICD Codes: E03.9 - Hypothyroidism, unspecified Status: Chronic Assessment and Plan Admit to Dr. Joel 81-year-old elderly white female presented to the emergency room with complaint of sudden dizziness and blurred vision that lasted 5 minutes. Has known history of diabetes, ongoing dizziness with recent extensive workup. Possible TIA -Continue neuro checks -Neurology has been consulted, Dr. Jones's input is appreciated. -Imaging studies have been reviewed, no acute findings. Brain MRIs currently pending -Orthostatics every shift -2-D echo has been ordered, pending -Continue with aspirin 325 mg by mouth daily -Continue atorvastatin 10 mg by mouth daily at bedtime -We'll check lipid profile and hemoglobin A1c -PT evaluation Valvular disease, follows up with Dr. Chung as outpatient -2-D echo has been ordered Hypertension -Continue home meds Type 2 diabetes -Accu-Cheks before meals and at bedtime with insulin therapy -Diabetic diet -Hemoglobin A1c in the morning Recent headaches, had workup for temporal arteritis with biopsy that was negative. Currently on steroids, being weaned off. Denies any headaches -Continue with prednisone 5 mg by mouth daily Dizziness, has had extensive workup, has been ruled out for vertigo but does take Antivert occasionally Denies any dizziness at this time -Physical therapy for evaluation Hyperlipidemia -Lipid profile in the morning -Continue statins History of breast cancer with mastectomies, currently in remission -Continue with Arimidex Hypothyroid -Continue with levothyroxine 75 g by mouth daily -TSH in the morning Home medications reviewed, initiated as indicated Continue Protonix for GI prophylaxis Continue with heparin for DVT prophylaxis Physical therapy for evaluation Plan of care has been discussed with the patient, attending and registered nurse. Further management of the patient will be dependent on the hospital course This patient was seen by myself and Dr. Joel, this H&P is written his behalf Problem Qualifiers (1) Type 2 diabetes mellitus: Qualified Codes: E11.8 - Type 2 diabetes mellitus with unspecified complications (2) Hypertension: Qualified Codes: I10 - Essential (primary) hypertension (3) Hyperlipidemia: Qualified Codes: E78.5 - Hyperlipidemia, unspecified (4) Hypothyroid: Qualified Codes: E03.9 - Hypothyroidism, unspecified Ann Ramirez Dec 07, 2016 09:02
[2016-12-07] MEDS ORDERED: DIAZEPAM 5 MG TAB PO ONE (10:15)
[2016-12-07] MEDS ORDERED: ASPIRIN EC 81 MG TABEC PO ONE (10:15)
--- NOTE | 2016-12-07 10:29 | MB ---
cc: BRYCE JOEL DATE OF CONSULTATION: 12/07/2016 HISTORY OF PRESENT ILLNESS A 81-year-old left-handed woman with hypertension, insulin dependent diabetes, right bundle branch block, leaky valve, thyroid nodules, bilateral breast cancer status post mastectomy. She does take a baby aspirin a day. In the past she has had a negative stress test, sees Dr. Chung. She has had some dizzy spells in the past, thought to be possibly inner ear and yesterday she had eaten dinner and was driving home, felt very lightheaded as if she might pass out, vision got blurry, lasted about 5 minutes. She went home and called her doctor who told her to come into the hospital. She had been on 5 mg of steroids, had bilateral temporal artery biopsies which were negative. She had a headache on the left side in the past, although not now and she is tapering off her steroids. She has some history of UTI. ALLERGIES AMPICILLIN, CEPHALEXIN, PENICILLIN. MEDICATION 1. She is on prednisone 5 a day. 2. Meclizine. 3. Brandi. 4. Ibuprofen. 5. Calcium. 6. Vitamin D. 7. 81 of aspirin. 8. Atorvastatin. 9. Insulin. 10. Rabeprazole. 11. Anastrozole. 12. Metoprolol. 13. Micardis. 14. Felodipine. PHYSICAL EXAMINATION VITAL SIGNS: Blood pressure 182/72 to 149/65. Heart was regular rhythm. I do not detect a murmur. There were no carotid bruits. Afebrile, 75, 18. NEURO: Pupils are equal, visual ortega are full. Extraocular movements intact without nystagmus. Face is symmetric with normal sensation. Tongue was midline. There is no drift. She had normal strength in upper and lower extremities bilaterally. Toes are downgoing bilaterally. DTRs are 1+, symmetric throughout. Pinprick and vibratory sense are intact throughout. She is not ataxic on [id number]. She has normal gait. Hallpike maneuver was negative bilaterally. Temples are nontender bilaterally. Speech is fluent. She is not aphasic. Neuro exam is normal. LABORATORY DATA CBC is normal. Sed rate was 33 November 16 ___ 10/20/16. Thyroid globulin antibodies have been negative in the past. UA is negative here. Coags are normal. Basic metabolic profile essentially normal. CPK, troponin negative. LFTs normal. Lactic acid normal. She had a normal B12 back in 2009. TSH normal this year. Glucose was 143 on presentation to the ER last night. IMAGING STUDIES She had a CTA of her head which was normal last night and a CTA of the neck which was also normal except for left thyroid nodule. CAT scan of the brain was read as normal. IMPRESSION Some lightheadedness. Does not sound particularly like a TIA. Will check an MRI and an EEG. If the MRI is negative and the EEG is done she could be discharged. Will just check a standing blood pressure on her. I would recommend getting a 30-day Holter monitor on her as an outpatient. She can follow up with Dr. Chung. Will just check a standing blood pressure on her here also. We can increase her aspirin to 325 a day for now. She can followup with Dr. Mello in the office. So if her MRI is negative, she could be discharged later today with a followup with Dr. Chung for a 30-day Holter. She tells me she just had an echo at Dr. Chung's office last fall. The med team should make sure they check her standing blood pressure results before discharge to make sure they are okay. If the blood pressure is running too high, then need to treat her hypertension here. MD ALEX Simmons/ANITAL /8:42 AM /10:24 AM
[2016-12-07] MEDS: METOPROLOL SUCCINATE 50 MG EXTENDED RELEASE TAB PO SCH (10:46)
[2016-12-07] MEDS: PANTOPRAZOLE SOD 20 MG DELAYED RELEASE TAB PO SCH (10:47)
[2016-12-07] MEDS: predniSONE 5 MG TAB PO SCH (10:47)
[2016-12-07] MEDS: amLODIPine BESYLATE 5 MG TAB PO SCH (10:47)
[2016-12-07] MEDS: ANASTROZOLE 1 MG TAB PO SCH (10:48)
--- NOTE | 2016-12-07 12:42 | RADRPT ---
EXAM DATE/TIME: 12/07/2016 11:40 [facility] COMPARISON: CT BRAIN W/O CONTRAST, December 07, 2016, 1:14. INDICATIONS : TIA. Episode of dizziness with blurred vision. CONTRAST: 16 cc Omniscan (gadodiamide) IV MEDICAL HISTORY : Carcinoma, breast. Diabetes mellitus type 2. SURGICAL HISTORY : Tubal ligation. Mastectomy, bilateral. ENCOUNTER: Subsequent ACUITY: 2 day PAIN SCORE: 0/10 LOCATION: head. TECHNIQUE: Multiplanar, multisequence MRI of the brain was performed both prior to and following the administrat ion of paramagnetic contrast. FINDINGS: CEREBRUM: The ventricles are normal for age. No evidence of midline shift, mass lesion, hemorrhage or acute in farction. No extraaxial fluid collections are seen. The pituitary gland and suprasellar cistern are normal in configuration. WHITE MATTER: No significant signal abnormalities are seen in the white matter. POSTERIOR FOSSA: There are several areas of scattered T2 signal abnormality with restricted diffusion in the left cere bellum. A right cerebellum normal. The 4th ventricle is midline. The cerebellopontine angle is unrema rkable. The cerebellar tonsils are normal in position. DIFFUSION IMAGING: There are focal areas of restricted diffusion seen in the left cerebellum consistent with of acute in farction. EXTRACRANIAL: The visualized portions of the orbits and paranasal sinuses are unremarkable. POST-CONTRAST: No abnormal areas of parenchymal or dural enhancement. No evidence of blood-brain barrier breakdown. CONCLUSION: 1. 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 2. No midline shift or mass effect. Luca Ramirez MD on December 07, 2016 at 12:38 Board Certified Radiologist. This report was verified electronically.
--- NOTE | 2016-12-07 12:44 | RADRPT ---
EXAM DATE/TIME: 12/07/2016 11:40 [facility] COMPARISON: MRI BRAIN W & W/O CONTRAST, December 07, 2016, 11:40. CTA BRAIN W 3D RECON, December 07, 2016, 1: 17. INDICATIONS : TIA. Episode of dizziness with blurred vision. MEDICAL HISTORY : Diabetes mellitus type 2. Carcinoma, breast. SURGICAL HISTORY : Tubal ligation. Mastectomy, bilateral. ENCOUNTER: Subsequent ACUITY: 2 day PAIN SCORE: 0/10 LOCATION: head. Please note a normal MRA of the brain does not entirely exclude the possibility of a small aneurysm, nor the possibility of distal intracranial vessel disease. TECHNIQUE: 3D time of flight MRA was performed. Source images, multiplanar STS MIP, and 3D volume MIP reconstru ctions were reviewed. FINDINGS: There is excellent visualization of the major intracranial arteries out to the second-order branch ve ssels. There is no evidence for aneurysm, vessel truncation or stenosis, and no evidence for vascula r malformation. Persistent circulation left posterior cerebral artery. Anterior communicating a rtery is not seen. Hypoplastic right-sided posterior communicating artery. Anterior, middle and poste rior cervical arteries are normal. Distal internal carotid arteries normal in caliber. CONCLUSION: 1. No large vessel stenosis or aneurysm. 2. Normal variants as described above. 3. 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 Luca Ramirez MD on December 07, 2016 at 12:40 Board Certified Radiologist. This report was verified electronically.
[2016-12-07] MEDS: INSULIN ASPART SUPPLEMENTAL SCALE SQ SCH ×3 (13:07→20:40)
[2016-12-07 16:54] LABS: FREE T3 2.6 PG/ML (2.18-3.98); FREE T4 1.41 NG/DL (0.76-1.46)
--- NOTE | 2016-12-07 17:16 | EKG ---
Date Performed: 12/06/2016 Time Performed: 23:14:41 PTAGE: 81 years EKG: Sinus rhythm POSSIBLE LEFT ATRIAL ENLARGEMENT RIGHT BUNDLE BRANCH BLOCK ABNORMAL ECG PREVIOUS TRACING : 11/17/2016 21.18 Compared to prior tracing no significant change DOCTOR: Osmani Arroyo Interpretating Date/Time 12/07/2016 17:15:44
--- NOTE | 2016-12-07 17:33 | ECHRPT ---
Indication: CVA/TIA CONCLUSIONS The left ventricular systolic function is normal with an estimated ejection fraction in the range of 60-65%. Wall thickness is measured at the upper limits of normal. Normal left ventricular size. There is severe tricuspid regurgitation. The estimated pulmonary arterial pressure is 49 mmHg. BP: / HR: 78 Rhythm: Other MEASUREMENTS (Male / Female) Normal Values Technical Quality:Good 2D ECHO LV Diastolic Diameter PLAX 3.6 cm 4.2 - 5.9 / 3.9 - 5.3 cm LV Systolic Diameter PLAX 2.6 cm IVS Diastolic Thickness 1.1 cm 0.6 - 1.0 / 0.6 - 0.9 cm LVPW Diastolic Thickness 1.2 cm 0.6 - 1.0 / 0.6 - 0.9 cm LV Relative Wall Thickness 0.7 LVOT Diameter 1.9 cm M-MODE Aortic Root Diameter MM 3.3 cm LA Systolic Diameter MM 4.0 cm LA Ao Ratio MM 1.2 AV Cusp Separation MM 1.9 cm DOPPLER AV Peak Velocity 147.0 cm/s AV Peak Gradient 8.6 mmHg LVOT Peak Velocity 124.0 cm/s LVOT Peak Gradient 6.2 mmHg AV Area Cont Eq pk 2.4 cm MR Peak Velocity 376.0 cm/s MR Peak Gradient 56.6 mmHg Mitral E Point Velocity 149.0 cm/s Mitral A Point Velocity 162.0 cm/s Mitral E to A Ratio 0.9 LV E' Lateral Velocity 5.8 cm/s Mitral E to LV E' Lateral Ratio 25.9 LV E' Septal Velocity 6.9 cm/s Mitral E to LV E' Septal Ratio 21.5 TR Peak Velocity 312.0 cm/s TR Peak Gradient 38.9 mmHg Right Atrial Pressure 10.0 mmHg Pulmonary Artery Systolic Pressu 48.9 mmHg Right Ventricular Systolic Press 48.9 mmHg PV Peak Velocity 130.0 cm/s PV Peak Gradient 6.8 mmHg FINDINGS LEFT VENTRICLE The left ventricular systolic function is normal with an estimated ejection fraction in the range of 60-65%. Wall thickness is measured at the upper limits of normal. Normal left ventricular size. TRICUSPID VALVE There is severe tricuspid regurgitation. The estimated pulmonary arterial pressure is 49 mmHg. Jeff Hdez MD, FACC (Electronically Signed) Final Date:07 December 2016 17:33
[2016-12-07] MEDS ORDERED: ATORVASTATIN 10 MG TAB PO SCH (21:00)
[2016-12-08] VITALS (7 sets, daily range): BP systolic 148–177; BP diastolic 65–80; PULSE 68–89; RESP 18; TEMP 97.7–98.4; O2SAT 97–98
[2016-12-08] MEDS ORDERED: LEVOTHYROXINE SODIUM 75 MCG TAB PO SCH (06:00)
--- NOTE | 2016-12-08 07:28 | HHI.PR ---
Subjective Remarks sr Objective Vital Signs Date Time Temp Pulse Resp B/P (MAP) Pulse Ox O2 Delivery O2 Flow Rate FiO2 12/08/16 07:14 68 12/08/16 05:06 98.4 86 18 177/80 (112) 98 12/08/16 00:11 98.0 72 18 148/65 (92) 97 12/07/16 21:17 98.8 83 18 188/82 (117) 97 12/07/16 20:23 73 12/07/16 19:45 94 12/07/16 16:05 98.4 89 18 172/74 (106) 95 153/67 (95) 171/75 (107) 12/07/16 13:23 98.2 89 16 171/77 (108) 96 12/07/16 12:04 89 12/07/16 09:25 98.1 80 18 162/86 (111) 95 I/O 12/07/16 12/07/16 12/07/16 12/08/16 12/08/16 12/08/16 07:00 15:00 23:00 07:00 15:00 23:00 Intake Total 1000 ml Balance 1000 ml Intake IV Total 1000 ml # Voids 4 2 Result Diagram: 12/06/16 2325 12/07/16 0003 Objective Remarks nonew spells 5/5 t/o vff face sym not ataxic gait ok acc to pt Assessment and Plan Assessment and Plan imp [id number] echo nl labs ok ldl nl last month on 81 asa at home mri shows acute left cbllr cva ok to rx bp to 120-140/ start plavix fu holter if holter neg needs 30 day monitor and maybe loop recorder dr maria office fu dr mery Jones,Jone Sung MD Dec 08, 2016 07:28
[2016-12-08] MEDS: PANTOPRAZOLE SOD 20 MG DELAYED RELEASE TAB PO SCH (07:59)
[2016-12-08] MEDS: ANASTROZOLE 1 MG TAB PO SCH (08:00)
[2016-12-08] MEDS: METOPROLOL SUCCINATE 50 MG EXTENDED RELEASE TAB PO SCH (08:00)
[2016-12-08] MEDS: predniSONE 5 MG TAB PO SCH (08:00)
[2016-12-08] MEDS: amLODIPine BESYLATE 5 MG TAB PO SCH (08:00)
[2016-12-08] MEDS: HEPARIN SODIUM - SQ 10,000 UNITS/ML VIAL SQ SCH (08:01)
[2016-12-08] MEDS: SODIUM CHLORIDE 0.9% FLUSH 10 ML FLUSH IV FLUSH SCH (08:01)
--- NOTE | 2016-12-08 08:05 | HHI.PR ---
Subjective Remarks no dizziness no headache no cp no sob no changes in vision, no blurriness no fever anxious to go home tele reviewed, short episode of atrial tach, otherwise SR Objective Objective Results - Vital Signs Date Time Temp Pulse Resp B/P (MAP) Pulse Ox O2 Delivery O2 Flow Rate FiO2 12/08/16 07:14 68 12/08/16 05:06 98.4 86 18 177/80 (112) 98 12/08/16 00:11 98.0 72 18 148/65 (92) 97 12/07/16 21:17 98.8 83 18 188/82 (117) 97 12/07/16 20:23 73 12/07/16 19:45 94 12/07/16 16:05 98.4 89 18 172/74 (106) 95 153/67 (95) 171/75 (107) 12/07/16 13:23 98.2 89 16 171/77 (108) 96 12/07/16 12:04 89 12/07/16 09:25 98.1 80 18 162/86 (111) 95 I/O 12/07/16 12/07/16 12/07/16 12/08/16 12/08/16 12/08/16 07:00 15:00 23:00 07:00 15:00 23:00 Intake Total 1000 ml Balance 1000 ml Intake IV Total 1000 ml # Voids 4 2 Result Diagram: 12/06/16 2325 12/07/16 0003 Imaging Last Impressions Neck CTA 12/07/16 0000 Signed Impressions: Service Date/Time: November 01:17 - CONCLUSION: 1. Patent carotid arteries and vertebral arteries. 2. Left thyroid nodule. Michael Norwood Jr., MD Head CTA 12/07/16 0000 Signed Impressions: Service Date/Time: November 01:17 - CONCLUSION: Normal examination. Michael Norwood Jr., MD Head CT 12/06/16 0000 Signed Impressions: Service Date/Time: November 01:14 - CONCLUSION: Normal examination. Michael Norwood Jr., MD ROS General: No: Fatigue, Weakness HEENT: No: Sore Throat, Dysphagia Cardiac: No: Chest Pain, Edema, Palpitations Pulmonary: No: Cough, SOB, Wheezing GI: No: Abdominal Pain, BM, Diarrhea, N/V /CONTINUOUS PROCESS TANNER ROTARY DRUM: No: Dysuria, Urgency Neuro/MS: No: Lightheaded, Confusion Psych: No: Anxiety, Depression Skin: No: Itching, Rash Physical Exam Physical Exam Physical Exam GENERAL: This is a well-nourished, well-developed patient, in no apparent distress. SKIN: No rashes, ecchymoses or lesions. Cool and dry. HEAD: Atraumatic. Normocephalic. No temporal or scalp tenderness. EYES: Pupils equal round and reactive. Extraocular motions intact. No scleral icterus. No injection or drainage. ENT: Nose without bleeding, purulent drainage or septal hematoma. Throat without erythema, tonsillar hypertrophy or exudate. Uvula midline. Airway patent. NECK: Trachea midline. No JVD or lymphadenopathy. Supple, nontender, no meningeal signs. CARDIOVASCULAR: Regular rate and rhythm without murmurs, gallops, or rubs. RESPIRATORY: Clear to auscultation. Breath sounds equal bilaterally. No wheezes , rales, or rhonchi. GASTROINTESTINAL: Abdomen soft, non-tender, nondistended. No hepato-splenomegaly , or palpable masses. No guarding. MUSCULOSKELETAL: Extremities without clubbing, cyanosis, or edema. No joint tenderness, effusion, or edema noted. No calf tenderness. Negative Homans sign bilaterally. NEUROLOGICAL: Awake, alert oriented x 3. No focal deficits. Slight deviation of right eye medially, appears chronic. Slight lateral nystagmus. Urinary Catheter: No Vascular Central Line Catheter: No A/P Diagnosis: (1) Cerebellar stroke, acute ICD Codes: I63.9 - Cerebral infarction, unspecified Status: Acute (2) Dizziness ICD Codes: R42 - Dizziness and giddiness Status: Acute (3) Type 2 diabetes mellitus ICD Codes: E11.9 - Type 2 diabetes mellitus without complications Status: Chronic (4) Hypertension ICD Codes: I10 - Essential (primary) hypertension Status: Chronic (5) Hyperlipidemia ICD Codes: E78.5 - Hyperlipidemia, unspecified Status: Chronic (6) Valvular disease ICD Codes: I38 - Endocarditis, valve unspecified Status: Chronic (7) Hypothyroid ICD Codes: E03.9 - Hypothyroidism, unspecified Status: Chronic Assessment and Plan 81-year-old elderly white female presented to the emergency room with complaint of sudden dizziness and blurred vision that lasted 5 minutes. Has known history of diabetes, ongoing dizziness with recent extensive workup. Acute cerebellar stroke -Continue neuro checks -Neurology has been consulted, Dr. Jones's input is appreciated. -brain MRI + acute left cerebellar stroke -Orthostatics ok -per neuro -Holter now in place. If neg, needs 30 day monitor and poss loop recorder, needs to f/u Dr. Chung -2-D echo EF 50-65, severe tricuspid regurgitation -Continue with aspirin 325 mg by mouth daily, Plavix added per neuro. Recommends to dc ASA in 3 days. -Continue atorvastatin 10 mg by mouth daily at bedtime -pending lipid profile and hemoglobin A1c -PT evaluation, recommends to continue OP PT -symptoms resolved, waiting for holter to be applied. Valvular disease, follows up with Dr. Chung as outpatient -2-D echo done, results noted Hypertension -Continue home meds Type 2 diabetes -Accu-Cheks before meals and at bedtime with insulin therapy -Diabetic diet -Hemoglobin A1c pending Recent headaches, had workup for temporal arteritis with biopsy that was negative. Currently on steroids, being weaned off. Denies any headaches -Continue with prednisone 5 mg by mouth daily Dizziness, has had extensive workup, has been ruled out for vertigo but does take Antivert occasionally Denies any dizziness at this time -continue with PT Hyperlipidemia -Lipid profile pending -Continue statins History of breast cancer with mastectomies, currently in remission -Continue with Arimidex Hypothyroid -Continue with levothyroxine 75 g by mouth daily -TSH ok Continue Protonix for GI prophylaxis Continue with heparin for DVT prophylaxis Discussed discharge plan with patient at length, she had multiple questions. Discussed symptoms to be aware of, lifestyle modification. Plan to discharge today after Holter is applying Needs to follow up with Dr. Mello and Dr. Chung Continue with diabetic diet Activity as tolerated, avoid driving over the next 2 days until she feels more steady D/W RN D/W Dr. Joel D/W pt This patient was seen by myself and Dr. Joel, this note is written his behalf Discharge Planning 40 Problem Qualifiers (1) Type 2 diabetes mellitus: Qualified Codes: E11.8 - Type 2 diabetes mellitus with unspecified complications (2) Hypertension: Qualified Codes: I10 - Essential (primary) hypertension (3) Hyperlipidemia: Qualified Codes: E78.5 - Hyperlipidemia, unspecified (4) Hypothyroid: Qualified Codes: E03.9 - Hypothyroidism, unspecified Ann Ramirez Dec 08, 2016 08:05
[2016-12-08] MEDS ORDERED: CLOPIDOGREL 75 MG TAB PO SCH (09:00)
[2016-12-08] MEDS ORDERED: ASPIRIN EC 325 MG TABEC PO SCH (09:00)
[2016-12-08] MEDS ORDERED: PLAV75TA29 PO (09:07)
[2016-12-08] MEDS ORDERED: ASPI325T33 PO (09:09)
--- NOTE | 2016-12-08 09:09 | HHI.DCPOC ---
Discharge Care Plan Diagnosis: (1) Cerebellar stroke, acute Your Health Problems Are: Difficulty with ADL Goals to Promote Your Health * To prevent worsening of your condition and complications * To maintain your health at the optimal level Directions to Meet Your Goals Take your medications as prescribed Follow your dietary instruction Follow activity as directed Keep your appointments as scheduled Take your immunizations and boosters as scheduled If your symptoms worsen call your PCP, if no PCP go to Urgent Care Center or Emergency Room Smoking is Dangerous to Your Health. Avoid second hand smoke Call the 24-hour hour crisis hotline for domestic abuse at Ann Ramirez Dec 08, 2016 09:09
[2016-12-08] MEDS: INSULIN ASPART SUPPLEMENTAL SCALE SQ SCH ×2 (09:13→13:36)
[2016-12-08 10:28] LABS: HDL CHOLESTEROL 59.3 MG/DL (40.0-60.0); LDL CHOLESTEROL 51 MG/DL (0-99)
[2016-12-08] MEDS ORDERED: LOSARTAN 50 MG TAB PO SCH (11:00)
[2016-12-08] MEDS ORDERED: HYDROCHLOROTHIAZIDE 12.5 MG CAP PO SCH (11:00)
--- NOTE | 2016-12-08 15:56 | HHI.DS ---
Discharge Summary Admission Date Dec 07, 2016 at 14:45 Discharge Date: Dec 08, 2016 Admitting Diagnosis TIA (1) Cerebellar stroke, acute ICD Codes: I63.9 - Cerebral infarction, unspecified Status: Acute (2) Dizziness ICD Codes: R42 - Dizziness and giddiness Status: Acute (3) Type 2 diabetes mellitus ICD Codes: E11.9 - Type 2 diabetes mellitus without complications Status: Chronic (4) Hypertension ICD Codes: I10 - Essential (primary) hypertension Status: Chronic (5) Hyperlipidemia ICD Codes: E78.5 - Hyperlipidemia, unspecified Status: Chronic (6) Valvular disease ICD Codes: I38 - Endocarditis, valve unspecified Status: Chronic (7) Hypothyroid ICD Codes: E03.9 - Hypothyroidism, unspecified Status: Chronic Brief History Mrs. Crawford is a pleasant 81-year-old female with history of hypertension, hyperlipidemia, type 2 diabetes, bilateral breast cancer. Patient presented to the emergency room for evaluation of sudden onset of dizziness with blurry vision. Patient indicates that she was driving home from dinner when she was at a stoplight and suddenly her vision became blurry and she felt extremely dizzy, states that the spell lasted approximately 5 minutes. She became so concerned as she felt that she was going to pass out. She pulled into a parking lot called her primary care physician who instructed her to come to the emergency room. Patient indicates that she has been undergoing evaluation for episodes of feeling unsteady and dizzy for the last [address] Mello as outpatient. She's had MRI and MRA of the brain that were negative as well as a carotid ultrasound. She has been undergoing physical therapy. Indicates that this episode was very much different as it came on suddenly and this time she felt like she was going to pass out. She did not have any chest pain, no shortness of breath, no palpitations. No focal weakness, no paresthesias. Indicates that her episodes of dizziness are usually different, she feels unsteady, the room is not spinning. She has to take Antivert as needed. She is also had severe headaches back in September and had recent workup and had a temporal biopsy that was negative for arteritis however she was put on steroids. She is currently being weaned off. 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 The last time she saw was last year in November. Patient was evaluated in the emergency room, laboratory workup was completed. CBC unremarkable. BMP unremarkable other than mild hypokalemia. UA today. Head and neck CTA and head CT were negative. Patient has been started on aspirin. She has not had anymore episodes. Patient is admitted for further evaluation and treatment CBC/BMP: 12/06/16 2325 12/07/16 0003 Significant Findings Laboratory Tests Test 12/06/16 23:25 12/07/16 00:03 12/07/16 00:53 12/08/16 09:32 Mean Platelet Volume 6.9 FL (7.0-11.0) Troponin I LESS THAN 0.02 NG/ML Random Glucose 143 MG/DL (74-106) Potassium Level 3.4 MEQ/L (3.5-5.1) Estimat Glomerular Filtration Rate 63 ML/MIN (>89) Urine Leukocyte Esterase SMALL (NEG) Imaging Last Impressions Neck CTA 12/07/16 0000 Signed Impressions: Service Date/Time: November 01:17 - CONCLUSION: 1. Patent carotid arteries and vertebral arteries. 2. Left thyroid nodule. Michael Norwood Jr., MD Head Magnetic Resonance Angiography 12/07/16 0000 Signed Impressions: Service Date/Time: November 11:40 - CONCLUSION: 1. No large vessel stenosis or aneurysm. 2. Normal variants as described above. 3. 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 Luca Ramirez MD Head CTA 12/07/16 0000 Signed Impressions: Service Date/Time: November 01:17 - CONCLUSION: Normal examination. Michael Norwood Jr., MD Brain MRI 12/07/16 0000 Signed Impressions: Service Date/Time: November 11:40 - CONCLUSION: 1. 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 2. No midline shift or mass effect. Luca Ramirez MD Head CT 12/06/16 0000 Signed Impressions: Service Date/Time: November 01:14 - CONCLUSION: Normal examination. Michael Norwood Jr., MD Hospital Course Mrs. Crawford is a pleasant 81-year-old female with history of hypertension, hyperlipidemia, type 2 diabetes, bilateral breast cancer. Patient presented to the emergency room for evaluation of sudden onset of dizziness with blurry vision. Patient indicates that she was driving home from dinner when she was at a stoplight and suddenly her vision became blurry and she felt extremely dizzy, states that the spell lasted approximately 5 minutes. She became so concerned as she felt that she was going to pass out. She pulled into a parking lot called her primary care physician who instructed her to come to the emergency room. Patient indicates that she has been undergoing evaluation for episodes of feeling unsteady and dizzy for the last [address] Mello as outpatient. She's had MRI and MRA of the brain that were negative as well as a carotid ultrasound. She has been undergoing physical therapy. Indicates that this episode was very much different as it came on suddenly and this time she felt like she was going to pass out. She did not have any chest pain, no shortness of breath, no palpitations. No focal weakness, no paresthesias. Indicates that her episodes of dizziness are usually different, she feels unsteady, the room is not spinning. She has to take Antivert as needed. She is also had severe headaches back in September and had recent workup and had a temporal biopsy that was negative for arteritis however she was put on steroids. She is currently being weaned off. 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 The last time she saw was last year in November. Patient was evaluated in the emergency room, laboratory workup was completed. CBC unremarkable. BMP unremarkable other than mild hypokalemia. UA today. Head and neck CTA and head CT were negative. Patient was started on aspirin. She has not had anymore episodes. Patient was admitted for further evaluation and treatment 81-year-old elderly white female presented to the emergency room with complaint of sudden dizziness and blurred vision that lasted 5 minutes. Has known history of diabetes, ongoing dizziness with recent extensive workup. -Patient was admitted, neuro checks were ordered. Initially it was thought to be TIA. MRI came back positive for acute cerebellar stroke. -Neurology was consulted, Dr. Jones's input was appreciated. -brain MRI + acute left cerebellar stroke -Orthostatics ok -per neuro -Holter ordered. If neg,will need 30 day monitor and poss loop recorder, needs to f/u Dr. Chung. D/W pt -2-D echo EF 50-65, severe tricuspid regurgitation -Continued with aspirin 325 mg by mouth daily, Plavix added per neuro. Recommended to dc ASA in 3 days. -Continued atorvastatin 10 mg by mouth daily at bedtime -lipid profile and hemoglobin A1c done. -PT evaluation, recommended to continue OP PT -symptoms resolved, no afib in tele. Had short episode of atrial tach.Stable for dc Valvular disease, follows up with Dr. Chung as outpatient -2-D echo done, results noted Hypertension -Continued home meds Type 2 diabetes -Accu-Cheks before meals and at bedtime with insulin therapy -Diabetic diet -Hemoglobin A1c still pending. Patient indicated it was 7.5 at her last physician visit. They said she had been on steroids. Recent headaches, had workup for temporal arteritis with biopsy that was negative. Currently on steroids, being weaned off. Denied any headaches -Continued with prednisone 5 mg by mouth daily. Patient to continue titrating at home. Dizziness, has had extensive workup, has been ruled out for vertigo but does take Antivert occasionally Denies any dizziness at this time -continued with PT Hyperlipidemia -Lipid profile okay -Continue statins History of breast cancer with mastectomies, currently in remission -Continued with Arimidex Hypothyroid -Continue with levothyroxine 75 g by mouth daily -TSH ok Continued Protonix for GI prophylaxis Continued with heparin for DVT prophylaxis Discussed discharge plan with patient at length, she had multiple questions. Discussed symptoms to be aware of, lifestyle modification. Discharge home in stable condition. Instructed to follow up with Dr. Mello and Dr. Chung Continue with diabetic diet Activity as tolerated, avoid driving over the next 2 days until she feels more steady Pt Condition on Discharge: Stable Discharge Disposition: Discharge Home Discharge Instructions DIET: Follow Instructions for: Heart Healthy Diet, Diabetic Diet Activities you can perform: Weight Bearing as Shabbir Other Activity Instructions: no driving x 3 days Follow up Referrals: Cardiology with Raf Chung DO Neurology with Jess Mello MD PCP Follow-up New Medications: Aspirin DR (Aspirin EC) 325 Mg Tabdr 325 MG PO DAILY for Stroke Prevention for 3 Days, #3 TAB continue for 3 days then discontinue Clopidogrel (Plavix) 75 Mg Tab 75 MG PO DAILY for Stroke Prevention, #30 TAB Continued Medications: Anastrozole (Anastrozole) 1 Mg Tab 1 MG PO DAILY for Breast Cancer, #30 TAB 0 Refills Aspirin (Aspirin) 81 Mg Chew 81 MG CHEW HS, TAB 0 Refills Atorvastatin (Atorvastatin) 10 Mg Tab 10 MG PO HS for Cholesterol Management, #30 TAB 0 Refills Calcium Citrate (Calcium Citrate) 250 Mg Tab 105 MG PO HS for Calcium Supplement, TAB 0 Refills Cholecalciferol (Vitamin D3) 2,000 Unit Cap 2000 UNITS PO HS for Nutritional Supplement, #1 BOTTLE 0 Refills Felodipine ER (Felodipine ER) 5 Mg Damon 5 MG PO DAILY for Blood Pressure Management, #30 TAB 0 Refills Fexofenadine (Brandi Allergy) 180 Mg Tab 180 MG PO DAILY PRN for Allergy Management, #30 TAB 0 Refills Ibuprofen (Ibuprofen) 200 Mg Cap 200 MG PO DAILY PRN for PAIN SCALE 1 TO 10, CAP 0 Refills Insulin Human NPH Inj (Novolin N Inj) 1,000 Unit/10 Ml Vial 39 UNITS SQ AC BREAKFAST for Blood Sugar Management, #10 ML 0 Refills Insulin Human NPH Inj (Novolin N Inj) 1,000 Unit/10 Ml Vial 14 UNITS SQ AC DINNER for Blood Sugar Management, #10 ML 0 Refills Insulin Human Regular Inj (Novolin R Inj) 1,000 Unit/10 Ml Vial 12 UNITS SQ AC BREAKFAST for Blood Sugar Management, #10 ML 0 Refills Insulin Human Regular Inj (Novolin R Inj) 1,000 Unit/10 Ml Vial 10 UNITS SQ AC DINNER for Blood Sugar Management, #10 ML 0 Refills Levothyroxine (Synthroid) 75 Mcg Tab 75 MCG PO HS for Thyroid, #30 TAB 0 Refills Meclizine (Meclizine) 25 Mg Tab 25 MG PO DIRECTED PRN for VERTIGO, TAB 0 Refills Metoprolol Succinate ER 24 HR (Metoprolol Succinate ER 24 HR) 50 Mg Tab 50 MG PO DAILY, #30 TAB 0 Refills Prednisone (Prednisone) 5 Mg Tab 5 MG PO DAILY, TAB 0 Refills Rabeprazole (Rabeprazole) 20 Mg Tab 20 MG PO DAILY for Reflux, #30 TAB 0 Refills Telmisartan-Hydrochlorothiazide (Micardis Hct) 80-12.5 Mg Tab 1 TAB PO DAILY for Blood Pressure Management, #30 TAB 0 Refills Ann Ramirez Dec 08, 2016 15:56
[2016-12-08 16:35] LABS: HEMOGLOBIN A1a 1.1 %; HEMOGLOBIN A1b 2.1 %; HEMOGLOBIN Ao 81.2 %; HEMOGLOBIN LA1C 3.3 %; HEMOGLOBIN P3 4.7 %
--- NOTE | 2016-12-10 14:08 | HM ---
Date Performed: 12/08/2016 Time Performed: 12:06:00 HOOKUP DATE: 12/08/16 12:06:00 PM Fri ANALYSIS START TIME: 12/08/2016 12:11:00 PM ANALYSIS END TIME: 12/09/2016 12:14:59 PM PATIENT AGE: 81 PATIENT HEIGHT PATIENT WEIGHT DRUG LIST PATIENT DIAGNOSIS TEST NARRATIVE: The patient's average heart rate was 80 BPM. Heart rates greater than 120 B PM were noted < 1% of the time. No episodes of bradycardia were noted. No pauses exceeding 2.0 s econds were noted. 4 ventricular ectopics, which represented < 1% of the total beat count, were n oted. The highest ventricular ectopic frequency occurred from 01:00 PM to 02:00 PM Fri. During this time 1 VE(s) occurred. Ventricular ectopics were observed as 4 isolated beat(s) only. No couplets or runs were noted. 28 supraventricular ectopics, which represented < 1% of the total beat count, were noted. The highest supraventricular ectopic frequency occurred from 04:00 PM to 05:00 PM Fri. During this time 7 SVE(s) occurred. Multiple episodes of ST depression (defined as -1.0 mm or mo re) were noted in channel 1. The maximum depression of -6.9 mm occurred at 04:17:30 PM Fri. Multip le episodes of ST depression (defined as -1.0 mm or more) were noted in channel 2. The maximum depr ession of -4.7 mm occurred at 03:46:28 PM Fri. No episodes of ST depression (defined as -1.0 mm or m ore) were noted in channel 3. NO SYMPTOMS WERE RECORDED IN THE PATIENT DIARY. TEST INTERPRETATION: Patient has 5 episodes of 3-5 beat runs of supraventricular tachycardia gen erally at a rate of 140-150 or slightly faster that self-terminate. No prolonged supraventricular tac hycardia or atrial fibrillation present. No marked bradycardia. Very rare ventricular ectopy is prese nt. No patient diary information was filled out. Overall the patient has rare 3-5 beat runs of suprav entricular tachycardia which are basically runs of PACs that self terminate after 3-5 beats. no pause s or other abnormalities or evidence of atrial fibrillation present. Signed by : Car Chen
[2016-12-20] MEDS ORDERED: MISCMIS81 (13:59)
[2016-12-20] MEDS ORDERED: WHEEMIS3 (13:59)
[2016-12-20] MEDS ORDERED: COMMODE 3-IN-11 MIS (13:59)
[2016-12-26] MEDS ORDERED: METO50TA11 PO (08:44)
[2016-12-26] MEDS ORDERED: ATOR10TA15 PO (08:44)
[2016-12-26] MEDS ORDERED: FELO5TAB PO (08:44)
[2016-12-26] MEDS ORDERED: PLAV75TA29 PO (08:44)
[2016-12-26] MEDS ORDERED: POTA-243 PO (08:44)
[2016-12-26] MEDS ORDERED: LEVO.075 PO (08:44)
[2016-12-26] MEDS ORDERED: LISI-519 PO (08:44)
[2016-12-26] MEDS ORDERED: NOVORP2 SQ ×2 (08:44)
[2016-12-26] MEDS ORDERED: FAMO20TA2 PO (08:44)
[2016-12-26] MEDS ORDERED: ANAS1TAB PO (08:44)
[2016-12-26] MEDS ORDERED: MECL1TAB42 PO (08:44)
[2016-12-26] MEDS ORDERED: NOVONP2 SQ ×2 (08:44)
[2016-12-26] MEDS ORDERED: VITA2000 PO (08:44)
== END 2016-12-08 15:33 | disposition home or self-care (01) | DRG 65 ==
LOC: NEPD 22:01 → NEDA 12-07 02:51 → NEPFCDU 12-07 03:39 → OBSVTOIN 12-07 14:45
PROVIDERS: ADMIT Specialist; ATTEND Specialist
DX: I63.9 Cerebral infarction, unspecified (principal); K62.5 Hemorrhage of anus and rectum; I07.1 Rheumatic tricuspid insufficiency; N39.0 Urinary tract infection, site not specified; I45.10 Unspecified right bundle-branch block; E11.319 Type 2 diabetes mellitus with unspecified diabetic retinopathy without macular edema; I10 Essential (primary) hypertension; E03.9 Hypothyroidism, unspecified; E78.5 Hyperlipidemia, unspecified; E87.6 Hypokalemia; K21.9 Gastro-esophageal reflux disease without esophagitis; M85.80 Other specified disorders of bone density and structure, unspecified site; Z79.82 Long term (current) use of aspirin; Z79.4 Long term (current) use of insulin; Z79.899 Other long term (current) drug therapy; Z90.13 Acquired absence of bilateral breasts and nipples; Z85.3 Personal history of malignant neoplasm of breast; Z92.3 Personal history of irradiation; Z87.440 Personal history of urinary (tract) infections; K22.2 Esophageal obstruction; R74.8 Abnormal levels of other serum enzymes
CPT/HCPCS: 36415; 70450; 70496; 70498; 70544; 70553; 80048; 80061; 80076; 81001; 82247; 82248; 82550; 82948; 83036; 84439; 84443; 84481; 84484; 85025; 85384; 85610; 85730; 93005; 93225; 93226; 93306; 96360; A9579; J1644; J1815; J7030; J7512; Q9967

== ENCOUNTER → 2016-12-06 | Outpatient (CLI) | payer MEDICARE, OTHER ==
[~2016-12-06] MED LIST changes: +ASPI325T33 PO; +COMMODE 3-IN-11 MIS; +FAMO20TA2 PO; +LISI-519 PO; +MECL1TAB42 PO; +MISCMIS81; +PLAV75TA29 PO; +POTA-243 PO; +PRED5TAB PO; +WHEEMIS3
[2016-12-06 11:23] LABS: BACTERIA, URINE RARE /hpf; BLOOD, URINE NEG (NEG); GLUCOSE,URINE NEG (NEG); KETONE, URINE NEG (NEG); NITRITE,URINE NEG (NEG); PH, URINE 7.5 (5.0-8.5); URINE COLOR LIGHT-YELLOW (YELLW/STRAW)
[2016-12-06 11:24] LABS: COMMENT (UR) CULT NOT INDICATED; CULTURE IF INDICATED CULT NOT INDICATED
[2016-12-06 11:58] LABS: INDIRECT BILIRUBIN 0.8 MG/DL (0.0-0.8)
[2016-12-06 11:59] LABS: INDIRECT BILIRUBIN 0.8 MG/DL (0.0-0.8)
== END ==
LOC: CLAB 10:53
PROVIDERS: ATTEND Internal Medicine Gastroenterology
DX: K21.9 Gastro-esophageal reflux disease without esophagitis (principal); Z12.11 Encounter for screening for malignant neoplasm of colon; K22.2 Esophageal obstruction; K62.5 Hemorrhage of anus and rectum; N39.0 Urinary tract infection, site not specified; R74.8 Abnormal levels of other serum enzymes
CPT/HCPCS: 36415; 80076; 81001; 82247; 82248

== ENCOUNTER 2016-12-09 12:46 | Observation (INO) | payer MEDICARE, OTHER ==
[~2016-12-09] VITALS: Ht 163.8 cm; Wt 85.0 kg
[~2016-12-09 12:46] MED LIST changes: +ASPI325T33 PO; +PLAV75TA29 PO; -PRED10 PO; +PRED5TAB PO
[2016-12-09 13:02] VITALS: BP 157/68; PULSE 83; RESP 16; TEMP 98.6; O2SAT 100
[2016-12-09] MEDS ORDERED: SODIUM CHLORIDE 0.9% FLUSH 10 ML FLUSH IVF PRN (13:15)
[2016-12-09] MEDS ORDERED: ONDANSETRON HCL 4 MG/2 ML VIAL IV PUSH ONE (13:15)
[2016-12-09] MEDS ORDERED: SODIUM CHLORID 0.9% 500 ML INJ 500 ML IV ONE (13:15)
--- NOTE | 2016-12-09 13:51 | RADRPT ---
EXAM DATE/TIME: 12/09/2016 13:25 [facility] COMPARISON: CHEST SINGLE AP, November 17, 2016, 21:17. INDICATIONS : Lightheaded and dizzy post stroke on 12/06/16. MEDICAL HISTORY : Stroke 12/06/16. SURGICAL HISTORY : None. ENCOUNTER: Initial ACUITY: 1 day PAIN SCORE: 0/10 LOCATION: Bilateral chest FINDINGS: Portable AP view of the chest demonstrates a normal-sized cardiac silhouette. No effusion, consolidat ion, or pneumothorax is visualized. The bones and soft tissues demonstrate no acute abnormality. Clip s overlie the axilla. CONCLUSION: No acute cardiopulmonary abnormality is identified. Timbo Lebron MD on December 09, 2016 at 13:49 Board Certified Radiologist. This report was verified electronically.
[2016-12-09 14:02] LABS: AUTOMATED NEUTROPHIL # 5.7 TH/MM3 (1.8-7.7); BASOPHIL % 0.6 % (0.0-2.0); EOSINOPHIL # 0.2 TH/MM3 (0-0.4); EOSINOPHIL % 2.1 % (0.0-4.0); HEMATOCRIT 36.9 % (35.0-46.0); HEMO FLAGS DIFF FINAL; LYMPH % 15.8 % (9.0-44.0); LYMPHOCYTE # 1.2 TH/MM3 (1.0-4.8); MEAN CELL VOLUME 86.3 FL (80.0-100.0); MEAN CORPUSCULAR HEMOGLOBIN 28.6 PG (27.0-34.0); MEAN CORPUSCULAR HGB CONC 33.2 % (32.0-36.0); MONO % 7.4 % (0.0-8.0); NEUT % 74.1 % (16.0-70.0); PLATELET COUNT 247 TH/MM3 (150-450); RED BLOOD COUNT 4.27 MIL/MM3 (4.00-5.30); RED CELL DISTRIBUTION WIDTH 15.9 % (11.6-17.2); WHITE BLOOD COUNT 7.6 TH/MM3 (4.0-11.0)
[2016-12-09 14:11] LABS: PROTHROMBIN TIME - PATIENT 10.7 SEC (9.8-11.6)
[2016-12-09 14:44] LABS: ALKALINE PHOSPHATASE 88 U/L (45-117); ALT (GPT) 25 U/L (10-53); ANION GAP 8 MEQ/L (5-15); AST (GOT) 21 U/L (15-37); BICARBONATE 26.2 MEQ/L (21.0-32.0); BLOOD UREA NITROGEN 14 MG/DL (7-18); CHLORIDE 105 MEQ/L (98-107); GLOMERULAR FILTRATION RATE 70 ML/MIN (>89); SODIUM (NA) 139 MEQ/L (136-145); TOTAL BILIRUBIN ADULT 0.9 MG/DL (0.2-1.0)
[2016-12-09 15:05] LABS: CREATINE KINASE 54 U/L (26-192)
[2016-12-09 15:07] LABS: POTASSIUM 2.6 MEQ/L (3.5-5.1)
[2016-12-09] MEDS ORDERED: POTASSIUM CHLORIDE 20 MEQ CONTROLLED RELEASE TAB PO ONE (15:30)
[2016-12-09] MEDS ORDERED: POTASSIUM CHLOR 20 MEQ PREMIX 100 ML IV ONE (15:30)
--- NOTE | 2016-12-09 15:40 | PD ---
HPI Chief Complaint: Dizziness Time Seen by Provider: 13:09 Travel History International Travel<30 days: No Contact w/Intl Traveler<30days: No Traveled to known affect area: No History of Present Illness HPI 81-year-old female came to the emergency room with history of feeling very dizzy and lightheaded and feeling like she was going to pass out this morning. Patient was recently diagnosed with stroke and was put on Holter monitor by the neurologist. She was getting ready to bring the Holter monitor to turn it over. That's when this happened and she decided to come to the emergency room. She called 911 and was brought in by EMS. Vital signs were within normal limits. Patient seemed in moderate distress and nauseous. She said she vomited once. No history of headache or chest pain. She did not completely pass out. PFSH Past Medical History Narrative Medical List of her past medical, surgical, social and family history was reviewed from the nursing note. Hx Anticoagulant Therapy: Yes Asthma: No Blood Disorders: No Heart Rhythm Problems: No Cancer: Yes (BREAST) Cardiovascular Problems: Yes High Cholesterol: No Chemotherapy: No Chest Pain: No Congestive Heart Failure: No COPD: No Diabetes: Yes Patient Takes Glucophage: No Endocrine: Yes GERD: Yes Genitourinary: No Hepatitis: No Hiatal Hernia: Yes Hypertension: Yes Immune Disorder: No Musculoskeletal: No Neurologic: No Psychiatric: No Reproductive: No Respiratory: No Radiation Therapy: Yes Sleep Apnea: No Thyroid Disease: Yes (THYROID NODULES) Menopausal: Yes Dilation and Curettage (D&C): Yes Tubal Ligation: Yes Past Surgical History AICD: No Genitourinary Surgery: Yes (BLADDER LIFT) Gynecologic Surgery: Yes (TUBAL LIGATION) Joint Replacement: No Mastectomy: Yes (AMI) Oral Surgery: Yes (TONSILLECTOMY) Pacemaker: No Thoracic Surgery: Yes (AMI. MASTECTOMIES) Other Surgery: Yes (MASTECTOMY X2) Social History Alcohol Use: No Tobacco Use: No Substance Use: No Allergies-Medications (Allergen,Severity, Reaction): Coded Allergies: ampicillin (Unverified Allergy, Severe, Rash, 12/06/16) cephalexin (Unverified Allergy, Severe, Rash, 12/06/16) penicillin G (Unverified Allergy, Severe, Rash, 12/06/16) Comments List of her allergies reviewed from the nursing note. Reported Meds & Prescriptions Reported Meds & Active Scripts Active Plavix (Clopidogrel Bisulfate) 75 Mg Tab 75 Mg PO DAILY Reported Prednisone 5 Mg Tab 5 Mg PO DAILY Meclizine (Meclizine HCl) 25 Mg Tab 25 Mg PO DIRECTED PRN Brandi Allergy (Fexofenadine HCl) 180 Mg Tab 180 Mg PO DAILY PRN Calcium Citrate 250 Mg Tab 105 Mg PO HS Vitamin D3 (Cholecalciferol) 2,000 Unit Cap 2,000 Units PO HS Synthroid (Levothyroxine Sodium) 75 Mcg Tab 75 Mcg PO HS Atorvastatin (Atorvastatin Calcium) 10 Mg Tab 10 Mg PO HS Novolin R Inj (Insulin Human Regular) 1,000 Unit/10 Ml Vial 10 Units SQ AC DINNER Novolin R Inj (Insulin Human Regular) 1,000 Unit/10 Ml Vial 12 Units SQ AC BREAKFAST Rabeprazole (Rabeprazole Sodium) 20 Mg Tab 20 Mg PO DAILY Anastrozole 1 Mg Tab 1 Mg PO DAILY Metoprolol Succinate ER 24 HR (Metoprolol Succinate) 50 Mg Tab 50 Mg PO DAILY Micardis Hct (Telmisartan-Hydrochlorothiazide) 80-12.5 Mg Tab 1 Tab PO DAILY Felodipine ER (Felodipine) 5 Mg Damon 5 Mg PO DAILY Narrative Medication List of her home medications reviewed from the nursing note. Review of Systems Except as stated in HPI: all other systems reviewed are Neg Physical Exam Narrative GENERAL: Awake, alert, obese, moderate distress SKIN: Focused skin assessment warm/dry. Pale HEAD: Atraumatic. Normocephalic. EYES: Pupils equal and round. No scleral icterus. No injection or drainage. Right eye purulent discharge with some mattering ENT: No nasal bleeding or discharge. Mucous membranes pink and moist. NECK: Trachea midline. No JVD. CARDIOVASCULAR: Regular rate and rhythm. No murmur appreciated. RESPIRATORY: No accessory muscle use. Clear to auscultation. Breath sounds equal bilaterally. GASTROINTESTINAL: Abdomen soft, non-tender, nondistended. Hepatic and splenic margins not palpable. MUSCULOSKELETAL: No obvious deformities. No clubbing. No cyanosis. No edema. NEUROLOGICAL: Awake and alert. No obvious cranial nerve deficits. Motor grossly within normal limits. Normal speech. PSYCHIATRIC: Appropriate mood and affect; insight and judgment normal. Data Data Last Documented VS Orders Orders Electrocardiogram (12/09/16 13:11) Prothrombin Time / Inr (Pt) (12/09/16 13:11) Complete Blood Count With Diff (12/09/16 13:11) Comprehensive Metabolic Panel (12/09/16 13:11) Creatine Kinase (Cpk) (12/09/16 13:11) Troponin I (12/09/16 13:11) Urinalysis - C+S If Indicated (12/09/16 13:11) Ct Brain W/O Iv Contrast(Rout) (12/09/16 13:11) Chest, Single Ap (12/09/16 13:11) Ecg Monitoring (12/09/16 13:11) Iv Access Insert/Monitor (12/09/16 13:11) Oximetry (12/09/16 13:11) Sodium Chloride 0.9% Flush (Ns Flush) (12/09/16 13:15) Ct Pulmonary Angiogram (12/09/16 ) Sodium Chlorid 0.9% 500 Ml Inj (Ns 500 M (12/09/16 13:15) Ondansetron Inj (Zofran Inj) (12/09/16 13:15) Potassium Chlor 20 Meq Premix (Kcl 20 Me (12/09/16 15:30) Potassium Chloride (Kcl) (12/09/16 15:30) Iohexol 350 Inj (Omnipaque 350 Inj) (12/09/16 15:53) Water Sterile For I... W/Potassium Chlor (12/09/16 16:30) Admit Order (Ed Use Only) (12/09/16 17:03) Labs Laboratory Tests Test 12/09/16 13:30 12/09/16 16:05 White Blood Count 7.6 TH/MM3 Red Blood Count 4.27 MIL/MM3 Hemoglobin 12.2 GM/DL Hematocrit 36.9 % Mean Corpuscular Volume 86.3 FL Mean Corpuscular Hemoglobin 28.6 PG Mean Corpuscular Hemoglobin Concent 33.2 % Red Cell Distribution Width 15.9 % Platelet Count 247 TH/MM3 Mean Platelet Volume 7.3 FL Neutrophils (%) (Auto) 74.1 % Lymphocytes (%) (Auto) 15.8 % Monocytes (%) (Auto) 7.4 % Eosinophils (%) (Auto) 2.1 % Basophils (%) (Auto) 0.6 % Neutrophils # (Auto) 5.7 TH/MM3 Lymphocytes # (Auto) 1.2 TH/MM3 Monocytes # (Auto) 0.6 TH/MM3 Eosinophils # (Auto) 0.2 TH/MM3 Basophils # (Auto) 0.0 TH/MM3 CBC Comment DIFF FINAL Differential Comment Prothrombin Time 10.7 SEC Prothromb Time International Ratio 1.0 RATIO Blood Urea Nitrogen 14 MG/DL Creatinine 0.79 MG/DL Random Glucose 102 MG/DL Total Protein 6.7 GM/DL Albumin 3.2 GM/DL Calcium Level 9.0 MG/DL Alkaline Phosphatase 88 U/L Aspartate Amino Transf (AST/SGOT) 21 U/L Alanine Aminotransferase (ALT/SGPT) 25 U/L Total Bilirubin 0.9 MG/DL Sodium Level 139 MEQ/L Potassium Level 2.6 MEQ/L Chloride Level 105 MEQ/L Carbon Dioxide Level 26.2 MEQ/L Anion Gap 8 MEQ/L Estimat Glomerular Filtration Rate 70 ML/MIN Total Creatine Kinase 54 U/L Troponin I LESS THAN 0.02 NG/ML Urine Color LIGHT-YELLOW Urine Turbidity CLEAR Urine pH 8.0 Urine Specific Grahn 1.019 Urine Protein NEG mg/dL Urine Glucose (UA) NEG mg/dL Urine Ketones NEG mg/dL Urine Occult Blood NEG Urine Nitrite NEG Urine Bilirubin NEG Urine Urobilinogen LESS THAN 2.0 MG/DL Urine Leukocyte Esterase NEG Urine RBC LESS THAN 1 /hpf Urine WBC LESS THAN 1 /hpf Urine Mucus FEW /lpf Microscopic Urinalysis Comment CATH-CULT NOT IND MDM Medical Decision Making Medical Screen Exam Complete: Yes Emergency Medical Condition: Yes Medical Record Reviewed: Yes Interpretation(s) Twelve-lead EKG was reviewed by me. Normal sinus rhythm, right axis deviation, right bundle branch block. Heart rate of 73 bpm. Differential Diagnosis ACS, cardiac arrhythmia, orthostatic hypotension, vasovagal, dehydration Narrative Course 3:39 PM blood test results of back and suggestive off severe hypokalemia but otherwise within acceptable limits. I ordered a CT pulmonary angiogram and head CT. Currently awaiting for the CT to be done and resulted. Patient was given 1 L of IV fluid bolus. She is on Plavix. 4:[address] pulmonary angiogram was negative for PE. Patient will be admitted. Awaiting for the hospitalist call back. Procedures EKG Prior to Arrival: No Diagnosis Primary Impression: Near syncope Additional Impressions: Hypokalemia Generalized weakness Admitting Information Admitting Physician Requests: Observation Scripts Lisinopril (Lisinopril) 5 Mg Tab 10 MG PO DAILY for Blood Pressure Management, #30 TAB Prov: Ann Ramirez 12/12/16 Insulin Human NPH Inj (Novolin N Inj) 1,000 Unit/10 Ml Vial 14 UNITS SQ DAILY@17 for Blood Sugar Management, #1 INJECTION Prov: Ann Ramirez 12/12/16 Insulin Human NPH Inj (Novolin N Inj) 1,000 Unit/10 Ml Vial 26 UNITS SQ DAILY@08 for Blood Sugar Management, #1 INJECTION Prov: Ann Ramirez 12/12/16 Sheri Hernandez MD Dec 09, 2016 15:40
--- NOTE | 2016-12-09 15:52 | RADRPT ---
EXAM DATE/TIME: 12/09/2016 15:24 [facility] COMPARISON: CT BRAIN W/O CONTRAST, December 07, 2016, 1:14. INDICATIONS : Dizziness. RADIATION DOSE: 69.15 CTDIvol (mGy) MEDICAL HISTORY : Stroke. Hypertension. Carcinoma, breast. SURGICAL HISTORY : Mastectomy, bilateral. ENCOUNTER: Initial ACUITY: 1 day PAIN SCALE: 0/10 LOCATION: cranial TECHNIQUE: Multiple contiguous axial images were obtained of the head. Using automated exposure control and adj ustment of the mA and/or kV according to patient size, radiation dose was kept as low as reasonably a chievable to obtain optimal diagnostic quality images. DICOM format image data is available electro nically for review and comparison. FINDINGS: CEREBRUM: The ventricles are normal for age. No evidence of midline shift, mass lesion, hemorrhage or acute in farction. No extra-axial fluid collections are seen. POSTERIOR FOSSA: The cerebellum and brainstem are intact. The 4th ventricle is midline. The cerebellopontine angle i s unremarkable. EXTRACRANIAL: The visualized portion of the orbits is intact. SKULL: The calvaria is intact. No evidence of skull fracture. CONCLUSION: Unremarkable exam with no change from 2 days ago. Conrad Kessler MD on December 09, 2016 at 15:48 Board Certified Radiologist. This report was verified electronically.
[2016-12-09] MEDS ORDERED: IOHEXOL 350 MG/ML 10 ML VIAL (for RAD DIAG) IV PUSH ONE (15:53)
--- NOTE | 2016-12-09 16:02 | RADRPT ---
EXAM DATE/TIME: 12/09/2016 15:27 [facility] COMPARISON: CT THORAX W/O CONTRAST, January 20, 2014, 20:26. CHEST SINGLE AP, December 09, 2016, 13:25. INDICATIONS : Shortness of breath. IV CONTRAST: 100 cc Omnipaque 350 (iohexol) IV RADIATION DOSE: 9.81 CTDIvol (mGy) MEDICAL HISTORY : Carcinoma, breast. Cardiovascular disease Stroke. SURGICAL HISTORY : Mastectomy, bilateral. ENCOUNTER: Initial ACUITY: 1 day PAIN SCALE: 4/10 LOCATION: Bilateral chest TECHNIQUE: Volumetric scanning of the chest was performed using a pulmonary embolism protocol MIP images were re constructed. Using automated exposure control and adjustment of the mA and/or kV according to patien t size, radiation dose was kept as low as reasonably achievable to obtain optimal diagnostic quality images. DICOM format image data is available electronically for review and comparison. Follow-up recommendations for detected pulmonary nodules are based at a minimum on nodule size and pa tient risk factors according to Fleischner Society Guidelines. FINDINGS: PULMONARY ARTERIES: No filling defects are seen in the pulmonary arteries through the segmental level. LUNGS: There is no consolidation or pneumothorax . There are least 12 scattered bilateral noncalcified pulmo nary nodules measuring from 2-6 mm in size. There is a calcified granuloma in the lingula as well. Th jorge l are not significantly changed. There is underlying emphysema and scarring. PLEURAE: There is no pleural thickening or pleural effusion. MEDIASTINUM: There is good visualization of the great vessels of the middle mediastinum. No evidence of mediastin al or hilar adenopathy/mass. There are coronary artery calcifications. MUSCULOSKELETAL: Within normal limits for patient age. MISCELLANEOUS: The visualized upper abdominal organs demonstrate no acute abnormality. The left lobe of the thyroid gland is enlarged and inhomogeneous. This is unchanged. There are multiple calcified splenic granulom as. There is a small hiatal hernia. CONCLUSION: 1. No evidence of pulmonary embolism. 2. At least 12 stable scattered noncalcified pulmonary nodules likely representing noncalcified granu krissy. 3. The left lobe of the thyroid remains enlarged and homogeneous but is unchanged. Conrad Kessler MD on December 09, 2016 at 15:54 Board Certified Radiologist. This report was verified electronically.
[2016-12-09] MEDS ORDERED: WATER STERILE FOR IV ONE (16:30)
[2016-12-09] MEDS ORDERED: POTASSIUM CHLORIDE IV ONE (16:30)
[2016-12-09 16:38] LABS: BLOOD, URINE NEG (NEG); GLUCOSE,URINE NEG (NEG); KETONE, URINE NEG (NEG); MUCUS URINE FEW /lpf (OCC); NITRITE,URINE NEG (NEG); URINE COLOR LIGHT-YELLOW (YELLW/STRAW)
[2016-12-09 16:39] LABS: COMMENT (UR) CATH-CULT NOT IND; CULTURE IF INDICATED CATH CULTURE NOT IND
[2016-12-09] MEDS ORDERED: MAGNESIUM HYDROXIDE SUSP 30 ML CUP PO PRN (17:15)
[2016-12-09] MEDS ORDERED: IBUPROFEN 200 MG TAB PO PRN (17:15)
[2016-12-09] MEDS ORDERED: NALOXONE HCL 0.4 MG/ML AMP IV PUSH PRN (17:15)
[2016-12-09] MEDS ORDERED: DEXTROSE 50% IN WATER 50 ML VIAL(D50) IV PUSH PRN (17:15)
[2016-12-09] MEDS ORDERED: SODIUM CHLORIDE 0.9% FLUSH 10 ML FLUSH IV FLUSH PRN (17:15)
[2016-12-09] MEDS ORDERED: ONDANSETRON HCL 4 MG/2 ML VIAL IVP PRN (17:15)
[2016-12-09] MEDS ORDERED: SENNOSIDES 8.6 MG TAB PO PRN (17:15)
[2016-12-09] MEDS ORDERED: BISACODYL 10 MG SUPP RECTAL PRN (17:15)
[2016-12-09] MEDS ORDERED: GLUCAGON 1 MG/ML VIAL OTHER PRN (17:15)
[2016-12-09] MEDS ORDERED: LACTULOSE SYRUP 20 GM/30 ML CUP PO PRN (17:15)
[2016-12-09] MEDS ORDERED: INSULIN HUMAN REGULAR 1,000 UNITS/10 ML VIAL SQ SCH (17:55)
[2016-12-09] MEDS ORDERED: LORATADINE 10 MG TAB PO PRN (18:15)
--- NOTE | 2016-12-09 18:39 | HHI.PR ---
Objective Objective Results - Vital Signs Date Time Temp Pulse Resp B/P (MAP) Pulse Ox O2 Delivery O2 Flow Rate FiO2 12/09/16 13:02 98.6 83 16 157/68 (97) 100 Room Air 12/09/16 13:02 Room Air I/O 12/08/16 12/08/16 12/08/16 12/09/16 12/09/16 12/09/16 07:00 15:00 23:00 07:00 15:00 23:00 Output Total 20 ml Balance -20 ml Output Emesis 20 ml (Rosy García) Result Diagram: 12/09/16 1330 12/09/16 1330 A/P Assessment and Plan [id number] Hypokalemia, severe recent CVA presyncope, balance unsteady debility GERD nausea /vomiting (Rosy García) Assessment and Plan seen, examined by myself, Dr Joel, today Discussed with patient and family at her bedside Severe weakness and dizziness at home, according to the family blood sugar was over 100 Blood sugar dropped the emergency department down to 65 Severe hypo-kalemia, replace Replace dextrose Stop long-acting insulin Consult neurology Rule out stroke Discussed with mid level provider The exam, history, and the medical decision-making described in the above note were completed with the assistance of the mid-level provider. I reviewed the findings presented. I attest that I had a [id number] encounter with the patient on the same day, and personally performed and documented my assessment and findings in the medical record. (Alana Joel MD) Rosy García Dec 09, 2016 18:39 Alana Joel MD Dec 09, 2016 19:27
[2016-12-09] MEDS: D5-1/2 NS + KCL 20 MEQ INJ 1,000 ML IV SCH (18:52)
[2016-12-09] MEDS: HEPARIN SODIUM - SQ 10,000 UNITS/ML VIAL SQ SCH (18:55)
--- NOTE | 2016-12-09 19:41 | MH ---
cc: PRIMO CHANG MD DATE OF ADMISSION: 12/09/2016 CHIEF COMPLAINT Dizziness. ADMISSION STATUS: This is an admission for observation. TRAVEL IN THE LAST THIRTY DAYS: None. HISTORY OF PRESENT ILLNESS: This is a pleasant 81-year-old white female who is been struggling with weakness and dizziness for the past 24 hours. The patient was diagnosed with a stroke this past Sunday and was in the hospital here at [place] up until yesterday. She was discharged with a Holter monitor and was getting ready to bring it back when her symptoms occurred. The patient noted that when she stood and went into the restroom, she became dizzy and unable to hold her balance. She did not pass out but she felt like initially she was going to. The patient is a known diabetic and has had a decreased appetite over the past few days. Nausea x1 today and vomited x1 after admission through the emergency room. The patient denies any chest pain. No shortness of breath. She does have generalized weakness and malaise. She denies any headaches. She does have a cough but states that is from her chronic gastroesophageal reflux disease (GERD). PAST MEDICAL HISTORY: Her medical history includes: 1. Breast cancer. 2. Diabetes type 2. 3. Gastroesophageal reflux disease (GERD). 4. Hiatal hernia. 5. Hypertension. 6. Thyroid nodules left side. PAST SURGICAL HISTORY: 1. D&C. 2. Bladder lift. 3. Tubal ligation. 4. Bilateral mastectomy. 5. Tonsillectomy. ALLERGIES: 1. AMPICILLIN. 2. CEPHALEXIN. 3. PENICILLIN G. ALLERGIES AND REPORTED MEDICATIONS: According to the record include: 1. Aspirin. 2. Plavix. 3. Prednisone. 4. Meclizine. 5. Brandi. 6. Ibuprofen. 7. Calcium citrate. 8. Vitamin D. 9. Aspirin. 10. Synthroid. 11. Atorvastatin. 12. NovoLog N and R. 13. Metoprolol. 14. Micardis. 15. Felodipine. 16. Rabeprazole. 17. Anastrozole. SOCIAL HISTORY: No alcohol, tobacco or illicit drugs. REVIEW OF SYSTEMS: A twelve point review was done and positives noted are noted in history of present illness, which include generalized weakness and fatigue, lightheadedness and nausea, vomiting x1, positive diabetes, balance issues, history of headaches but none now, cough chronic, recent CVA approximately five days ago. Other systems negative or unremarkable for now. PHYSICAL EXAMINATION: VITAL SIGNS: Temperature is 98.6, pulse 83, respirations 16, blood pressure 157/68, 02 saturation 100% currently on room air. GENERAL: An obese white female who looks younger than her stated resting in the bed. She is answering most of the questions appropriately. SKIN: [place] warm and dry. No obvious rashes. HEAD, EYES, EARS, NOSE, THROAT: Normocephalic and atraumatic. Pupils equal, round and reactive to light and accommodation. The mucous membranes are slightly dry. No scleral icterus. NECK: The neck is obese, supple. CARDIOVASCULAR: S1-S2. Grade 2/6 systolic murmur heard at the left sternal border. No obvious edema. EXTREMITIES: Warm and pulses are intact. RESPIRATORY: Lungs are essentially clear anteriorly and posteriorly with no wheezes, rales or rhonchi. ABDOMEN: Round, soft, nontender, nondistended. Bowel sounds are soft and active. MUSCULOSKELETAL: Moves all extremities with purpose. No obvious deformities. 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 NEUROLOGIC: Neurologically she is alert, oriented, a fairly good historian. Tongue is midline. Speech is clear. No obvious cranial nerve deficits. Tracks and follows my finger with her eyes. PSYCHIATRIC: Appropriate mood and affect. Insight and judgment is normal. LABORATORY STUDIES: White blood cell count 7.6, RBCs 4.27, hemoglobin 12.2, hematocrit 36.9, platelet count 247,000. Abnormal differential as her neutrophil percentage count is 74.1. Sodium 139, potassium 2.6, chloride 105, BUN 14, creatinine 0.79, GFR 70, random glucose 102. Troponin less than 0.02. Albumin 3.2. Total protein 6.7. Creatine kinase 54. Alkaline phosphatase 88. Bilirubin 0.9. AST 21, ALT 25. PT and INR is 1. Urine is light yellow and clear. Negative exam. Culture is not indicated. IMAGING STUDIES: Chest x-ray was normal exam. Head CT was unremarkable with no change from two days ago. CT angiography: No evidence of pulmonary embolism. At least 12 scattered noncalcified pulmonary nodules likely representing noncalcified granulomas, the left lobe of the thyroid remains enlarged from a previous study unchanged. ASSESSMENT AND PLAN: 1. Acute onset of severe vertigo with dizziness. 2. Hypokalemia, severe. 3. Diabetes type 2, insulin-dependent. 4. Recent CVA. 5. Systolic murmur. Rule out any cardiac arrhythmias. 6. Generalized weakness and debility. PLAN: 1. Our plan is to monitor for observation. 2. Reconcile her medications. 3. Monitor her for continuous ECG monitoring with especially wanting to make sure the patient has no signs of atrial fibrillation. Currently she is sinus rhythm with a right bundle-branch block. 4. IV access is intact. 5. The patient did receive IV fluid bolus x1. 6. Zofran for nausea in the emergency room. 7. She is feeling somewhat better. 8. We placed her on DVT prophylaxis with Plavix and Heparin. 9. Peptic ulcer disease prophylaxis with Protonix. 10. The patient has been placed back on her regular medications. 11. She will have Accu-Cheks a.c. and at bedtime with sliding scale insulin. 12. ADA diet. 13. Will monitor her labs for any acute changes. 14. For her hypokalemia, the patient will receive IV potassium as well as p.o. potassium. 15. Will recheck her labs in the morning. 16. Bowel regimen has been ordered and explained to the patient. The plan of care has been explained to the patient and her family. We will continue to monitor. Dictated by RIKA Lynch. MD JANET Suarez/PETER /6:25 PM /7:08 PM
[2016-12-09 20:00] VITALS: PULSE 68
[2016-12-09 20:12] VITALS: BP 159/71; PULSE 77; RESP 18; TEMP 97.8; O2SAT 98
[2016-12-09] MEDS: ASPIRIN 81 MG CHEW TAB CHEW SCH (20:18)
[2016-12-09] MEDS: LEVOTHYROXINE SODIUM 75 MCG TAB PO SCH (20:19)
[2016-12-09] MEDS: CHOLECALCIFEROL (VIT D3) 1000 UNIT TAB PO SCH (20:19)
[2016-12-09] MEDS: DOCUSATE SODIUM 50 MG/SENNA 8.6 MG TAB PO SCH (20:19)
[2016-12-09] MEDS: ATORVASTATIN 10 MG TAB PO SCH (20:19)
[2016-12-09] MEDS: SODIUM CHLORIDE 0.9% FLUSH 10 ML FLUSH IV FLUSH SCH (20:26)
[2016-12-09] MEDS: POTASSIUM CHLORIDE 20 MEQ CONTROLLED RELEASE TAB PO SCH (20:37)
[2016-12-09 20:47] VITALS: BP 187/84; PULSE 75; RESP 17; TEMP 97.8; O2SAT 98
[2016-12-09] MEDS ORDERED: CALCIUM CITRATE PO SCH (21:00)
[2016-12-09] MEDS ORDERED: INSULIN ASPART SUPPLEMENTAL SCALE SQ SCH (21:00)
[2016-12-09 21:57] LABS: CREATINE KINASE 55 U/L (26-192)
[2016-12-09] MEDS: MECLIZINE HCL 25 MG TAB PO PRN (22:14)
[2016-12-09 23:13] VITALS: BP 179/81; PULSE 74; RESP 16; TEMP 98.1; O2SAT 96
[2016-12-10] VITALS (7 sets, daily range): BP systolic 139–171; BP diastolic 65–90; PULSE 67–88; RESP 17–20; TEMP 97.9–98.7; O2SAT 94–97
[2016-12-10 04:36] LABS: BICARBONATE 24.9 MEQ/L (21.0-32.0); POTASSIUM 3.9 MEQ/L (3.5-5.1)
[2016-12-10 05:50] LABS: AUTOMATED NEUTROPHIL # 3.3 TH/MM3 (1.8-7.7); BASOPHIL % 0.7 % (0.0-2.0); EOSINOPHIL # 0.2 TH/MM3 (0-0.4); EOSINOPHIL % 3.4 % (0.0-4.0); HEMATOCRIT 33.9 % (35.0-46.0); HEMO FLAGS DIFF FINAL; LYMPH % 21.2 % (9.0-44.0); LYMPHOCYTE # 1.1 TH/MM3 (1.0-4.8); MEAN CELL VOLUME 86.2 FL (80.0-100.0); MEAN CORPUSCULAR HEMOGLOBIN 28.9 PG (27.0-34.0); MEAN CORPUSCULAR HGB CONC 33.5 % (32.0-36.0); MONO % 9.3 % (0.0-8.0); NEUT % 65.4 % (16.0-70.0); PLATELET COUNT 208 TH/MM3 (150-450); RED BLOOD COUNT 3.93 MIL/MM3 (4.00-5.30); RED CELL DISTRIBUTION WIDTH 16.3 % (11.6-17.2); WHITE BLOOD COUNT 5.1 TH/MM3 (4.0-11.0)
[2016-12-10] MEDS: HEPARIN SODIUM - SQ 10,000 UNITS/ML VIAL SQ SCH ×2 (06:00→17:28)
[2016-12-10] MEDS: D5-1/2 NS + KCL 20 MEQ INJ 1,000 ML IV SCH ×2 (06:02→14:51)
[2016-12-10] MEDS ORDERED: INSULIN HUMAN REGULAR 1,000 UNITS/10 ML VIAL SQ SCH (07:00)
[2016-12-10] MEDS ORDERED: GLUCAGON 1 MG/ML VIAL OTHER PRN (08:45)
[2016-12-10] MEDS: POTASSIUM CHLORIDE 20 MEQ CONTROLLED RELEASE TAB PO SCH ×2 (08:57→21:31)
[2016-12-10] MEDS: ANASTROZOLE 1 MG TAB PO SCH (08:57)
[2016-12-10] MEDS: amLODIPine BESYLATE 5 MG TAB PO SCH (08:57)
[2016-12-10] MEDS: SODIUM CHLORIDE 0.9% FLUSH 10 ML FLUSH IV FLUSH SCH ×2 (08:57→21:00)
--- NOTE | 2016-12-10 08:57 | HHI.PR ---
Subjective Remarks Resting in the bed Awake alert answers questions appropriately Still feels weakened, will add physical therapy get patient out of bed today Hypokalemia resolved potassium 3.9 Decreased appetite and decreased by mouth fluids, will encourage by mouth fluids today and treat sliding scale insulin until patient is eating Objective Objective Results - Vital Signs Date Time Temp Pulse Resp B/P (MAP) Pulse Ox O2 Delivery O2 Flow Rate FiO2 12/10/16 04:13 98.7 76 17 145/67 (93) 95 12/10/16 04:02 71 12/10/16 00:03 67 12/09/16 23:13 98.1 74 16 179/81 (113) 96 12/09/16 20:47 97.8 75 17 187/84 (118) 98 12/09/16 20:00 68 12/09/16 18:42 12/09/16 13:02 98.6 83 16 157/68 (97) 100 Room Air 12/09/16 13:02 Room Air I/O 12/09/16 12/09/16 12/09/16 12/10/16 12/10/16 12/10/16 07:00 15:00 23:00 07:00 15:00 23:00 Intake Total 1247 ml Output Total 20 ml Balance -20 ml 1247 ml Intake Oral 480 ml IV Total 767 ml Output Emesis 20 ml # Voids 2 Result Diagram: 12/10/16 0535 12/10/16 0345 Medications and IVs Administered Medications Medications (Trade) Dose Ordered Sig/Kathleen Route PRN Reason Start Time Stop Time Status Last Admin Dose Admin Aspirin (Aspirin Chew) 81 mg HS CHEW 12/09/16 21:00 12/09/16 20:18 Atorvastatin Calcium (Lipitor) 10 mg HS PO 12/09/16 21:00 12/09/16 20:19 Cholecalciferol (Vitamin D3) 2,000 units HS PO 12/09/16 21:00 12/09/16 20:19 Levothyroxine Sodium (Synthroid) 75 mcg HS PO 12/09/16 21:00 12/09/16 20:19 Meclizine HCl (Antivert) 25 mg BID PRN PO VERTIGO 12/09/16 17:15 12/09/16 22:14 Potassium Chloride/Dextrose/ Sod Cl 1,000 ml @ 100 mls/hr Q10H IV 12/09/16 18:00 12/10/16 06:02 Heparin Sodium (Porcine) (Heparin Inj) 5,000 units Q12H SQ 12/09/16 18:00 12/10/16 06:00 Senna/Docusate Sodium (An-Colace) 1 tab BID PO 12/09/16 21:00 12/09/16 20:19 Potassium Chloride (KCl) 20 meq Q12HR PO 12/09/16 21:00 12/09/16 20:37 ROS General: Fatigue, Weakness, Other (10 point ROS done positives noted) Cardiac: Other (old chronic bilateral mastectomy) GI: N/V (nausea no vomiting decreased appetite continues, decreased by mouth fluid intake) Neuro/MS: Lightheaded (gradual improvement) Physical Exam Physical Exam PHYSICAL EXAMINATION GENERAL: This is a elderly female Resting in the bed. She is awake, HEAD: Normocephalic Facial features appear symmetric. OROPHARYNGEAL: Oropharynx dry NECK: Supple. Trachea midline without deviation. CARDIAC: Regular rhythm, regular rate, S1 and S2 are heard. Bilateral mastectomy noted LUNGS: Clear to auscultation bilaterally. No obvious rhonchi or wheeze ABDOMEN: Soft, nontender, round, bowel sounds soft hypoactive EXTREMITIES: No lower extremity edema. NEUROLOGICAL: Patient mood and affect appropriate. 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 Acute onset of severe vertigo with dizziness. Decreased appetite, but no further dizziness. PT ordered for eval and treat today, DC planning needs. Appeciate neuro consult and plan of care. Continue her IV fluids for now, D51/2NS 2. Hypokalemia, severe. resolved, 3.9 this a.m. encourage juice and her by mouth fluids as well as food 3. Diabetes type 2, insulin-dependent., Hypoglycemic initially in the emergency room now resolved Not eating much at all, and animal drinking, change patient to medium NovoLog sliding scale and held before meals insulin for now until patient starts eating. At supper , BS 300, 10 units SQ now, check blood sugar 1 hr later before supper, use sliding scale . Added back AC Novolog insulin breakfast and supper. Also recieving steroids which probable contributes to increased BS this pm. 4. Recent CVA. Appreciate neurology input, pending 5. Systolic murmur. Rule out any cardiac arrhythmias. No dysrhythmias noted, continue ECG monitoring 6. Generalized weakness and debility Physical therapy to eval and treat 7. GERD medical management Protonix, continue IV fluids patient does complain of some nausea but no emesis, continue Zofran as needed 8. Anemia, probable secondary to chronic disease Discussed with patient Discussed with nurse Is cussed with Dr. Brantley, seen on his behalf Rosy García Dec 10, 2016 08:57
[2016-12-10] MEDS: CLOPIDOGREL 75 MG TAB PO SCH (08:58)
[2016-12-10] MEDS: predniSONE 5 MG TAB PO SCH (08:58)
[2016-12-10] MEDS: PANTOPRAZOLE SOD 20 MG DELAYED RELEASE TAB PO SCH (08:58)
[2016-12-10] MEDS: DOCUSATE SODIUM 50 MG/SENNA 8.6 MG TAB PO SCH ×2 (08:58→21:31)
[2016-12-10] MEDS: METOPROLOL SUCCINATE 50 MG EXTENDED RELEASE TAB PO SCH (08:58)
[2016-12-10] MEDS: ASPIRIN EC 325 MG TABEC PO SCH (08:59)
[2016-12-10] MEDS ORDERED: NON-FORMULARY DRUG (Telmisartan-Hydrochlorothiazide (Micardis Hct) 1 TAB) PO SCH (09:00)
[2016-12-10] MEDS ORDERED: INSULIN ASPART SUPPLEMENTAL SCALE SQ SCH (12:00)
[2016-12-10] MEDS ORDERED: LOW DOSE INSULIN NOVOLOG SUPPLEMENTAL SCALE SQ SCH (12:00)
--- NOTE | 2016-12-10 12:36 | MB ---
cc: RODRÍGUEZ TENA M.D. DATE OF CONSULTATION: 12/10/2016 HISTORY OF PRESENT ILLNESS A 81-year-old woman seen in neurological consultation with dizziness. She was in the hospital between 12/06 and 12/08 and she was discharged with a left cerebellar stroke. She is having dizziness. She had a Holter monitor and was getting ready to bring it back yesterday when she became dizzy again and she was back to the emergency room and admitted. She is still in the observation unit in the ER. She describes dizziness, lightheadedness and not as much as vertigo. Symptoms happened especially when she turns her head to the left. There is no more nausea and she may have had a bit of vomiting yesterday. With the recent stroke she was being switched from aspirin to Plavix. I looked at the data and she had MRI head showing left cerebellar strokes, MRA head was essentially unremarkable except for variant anatomy. Neck CT angio was also unremarkable for any significant carotid or vertebral artery disease at the neck level. She also had a head CT angio. NEUROLOGIC EXAMINATION The neurologic exam shows an alert pleasant woman. She is in good spirits but still dizzy. She is well-oriented. Ocular movements without nystagmus at the time of my visit. Visual ortega were full. There is no facial weakness. Speech was normal. She had normal coordination on [id number] testing and she essentially had normal strength throughout. Reflexes were 1+, diminished but present at the ankles. ASSESSMENT Persistent/recurrence of dizziness, lightheadedness, superimposed on a recent left cerebellar stroke which was diagnosed when she came in recently for the dizziness evaluation. She had CT angio head and neck and MRA head studies. Holter monitor was placed on the recent admission, no results yet. At this point I would continue with the aspirin and Plavix possibly for a period of 6 weeks or so. As discussed by Dr. Jones, possibly have an extended heart monitor if the Holter monitor study is negative. The patient had an EKG yesterday that is showing sinus rhythm and possible left atrial enlargement. Start out of bed therapy if the patient tolerates. She will be followed accordingly. Thank you for asking us to assist in her care. Rodríguez Tena MD OFC/TLL /11:04 AM /12:26 PM
[2016-12-10] MEDS: MEDIUM DOSE INSULIN NOVOLOG SUPPLEMENTAL SCALE SQ SCH ×3 (13:20→21:33)
--- NOTE | 2016-12-10 13:36 | EKG ---
Date Performed: 12/09/2016 Time Performed: 13:16:32 PTAGE: 81 years EKG: Sinus rhythm POSSIBLE LEFT ATRIAL ENLARGEMENT RIGHT BUNDLE BRANCH BLOCK Compared to prior tracing no significant change ABNORMAL ECG PREVIOUS TRACING : 12/06/2016 23.14 DOCTOR: Car Chen Interpretating Date/Time 12/10/2016 13:35:06
[2016-12-10] MEDS: MECLIZINE HCL 25 MG TAB PO PRN ×2 (14:51→21:59)
[2016-12-10] MEDS ORDERED: INSULIN HUMAN REGULAR 1,000 UNITS/10 ML VIAL SQ ONE (17:45)
[2016-12-10] MEDS: ASPIRIN 81 MG CHEW TAB CHEW SCH (21:31)
[2016-12-10] MEDS: CHOLECALCIFEROL (VIT D3) 1000 UNIT TAB PO SCH (21:31)
[2016-12-10] MEDS: ATORVASTATIN 10 MG TAB PO SCH (21:31)
[2016-12-10] MEDS: LEVOTHYROXINE SODIUM 75 MCG TAB PO SCH (21:32)
[2016-12-11] VITALS (9 sets, daily range): BP systolic 134–192; BP diastolic 63–87; PULSE 74–84; RESP 16–20; TEMP 95.8–99.9; O2SAT 95–97
[2016-12-11] MEDS: D5-1/2 NS + KCL 20 MEQ INJ 1,000 ML IV SCH ×2 (00:33→09:53)
[2016-12-11] MEDS: HEPARIN SODIUM - SQ 10,000 UNITS/ML VIAL SQ SCH ×2 (05:56→18:06)
--- NOTE | 2016-12-11 07:31 | HHI.PR ---
Subjective Remarks resting in bed waiting on breakfast son in. still complaints of positional vertigo when up, but ambulates with PT. None resting in bed. diet preferences not being met, discuss options. no acute pain (Rosy García) Objective Objective Results - Vital Signs Date Time Temp Pulse Resp B/P (MAP) Pulse Ox O2 Delivery O2 Flow Rate FiO2 12/11/16 03:20 97.9 80 18 162/66 (98) 96 12/10/16 23:57 98.3 83 18 142/90 (107) 97 12/10/16 20:59 97.9 75 18 139/65 (89) 96 12/10/16 15:12 88 20 171/74 (106) 94 12/10/16 08:53 98.1 80 17 163/69 (100) 97 I/O 12/10/16 12/10/16 12/10/16 12/11/16 12/11/16 12/11/16 07:00 15:00 23:00 07:00 15:00 23:00 Intake Total 1247 ml 2618 ml Balance 1247 ml 2618 ml Intake Oral 480 ml 240 ml IV Total 767 ml 2378 ml # Voids 2 1 1 (Rosy García) Result Diagram: 12/10/16 0535 12/10/16 0345 Medications and IVs Administered Medications Medications (Trade) Dose Ordered Sig/Kathleen Route PRN Reason Start Time Stop Time Status Last Admin Dose Admin Anastrozole (Arimidex) 1 mg DAILY PO 12/10/16 09:00 12/10/16 08:57 Aspirin (Aspirin Chew) 81 mg HS CHEW 12/09/16 21:00 12/10/16 21:31 Aspirin (Ecotrin Ec) 325 mg DAILY PO 12/10/16 09:00 12/10/16 08:59 Atorvastatin Calcium (Lipitor) 10 mg HS PO 12/09/16 21:00 12/10/16 21:31 Cholecalciferol (Vitamin D3) 2,000 units HS PO 12/09/16 21:00 12/10/16 21:31 Clopidogrel Bisulfate (Plavix) 75 mg DAILY PO 12/10/16 09:00 12/10/16 08:58 Levothyroxine Sodium (Synthroid) 75 mcg HS PO 12/09/16 21:00 12/10/16 21:32 Meclizine HCl (Antivert) 25 mg BID PRN PO VERTIGO 12/09/16 17:15 12/10/16 21:59 Metoprolol Succinate (Toprol Xl) 50 mg DAILY PO 12/10/16 09:00 12/10/16 08:58 Prednisone (Deltasone) 5 mg DAILY PO 12/10/16 09:00 12/10/16 08:58 Pantoprazole Sodium (Protonix) 20 mg DAILY PO 12/10/16 09:00 12/10/16 08:58 Amlodipine Besylate (Norvasc) 5 mg DAILY PO 12/10/16 09:00 12/10/16 08:57 Potassium Chloride/Dextrose/ Sod Cl 1,000 ml @ 100 mls/hr Q10H IV 12/09/16 18:00 12/11/16 00:33 Sodium Chloride (NS Flush) 2 ml BID IV FLUSH 12/09/16 21:00 12/10/16 08:57 Ondansetron HCl (Zofran Inj) 4 mg Q6H PRN IVP NAUSEA OR VOMITING 12/09/16 17:15 12/10/16 13:20 Heparin Sodium (Porcine) (Heparin Inj) 5,000 units Q12H SQ 12/09/16 18:00 12/11/16 05:56 Senna/Docusate Sodium (An-Colace) 1 tab BID PO 12/09/16 21:00 12/10/16 21:31 Potassium Chloride (KCl) 20 meq Q12HR PO 12/09/16 21:00 12/10/16 21:31 Insulin Aspart (NovoLOG SUPPLEMENTAL SCALE) 1 ACHS SLIDING SCALE SQ 12/10/16 12:00 12/10/16 21:33 (Rosy García) ROS General: Other (10 point ROS done) GI: Other (decreased appetite) Neuro/MS: Lightheaded (while up) (Rosy García) Physical Exam Physical Exam PHYSICAL EXAMINATION GENERAL: This is an elderly female who appears to be in no acute distress while in bed She is alert and awake, HEAD: Normocephalic Facial features appear symmetric. OROPHARYNGEAL: Oropharynx without erythema or edema. NECK: Supple. No nuchal rigidity or lymphadenopathy. Trachea midline without deviation. CARDIAC: Regular rhythm, regular rate, S1 and S2 are heard. LUNGS: Clear to auscultation bilaterally. ABDOMEN: Soft, nontender, no organomegaly or masses. Bowel sounds are heard in all four quadrants. No rebound. No guarding. EXTREMITIES: no LE edema. Pulses equal bilateral, warm to touch NEUROLOGICAL: Patient mood and affect WNL, pleasant, vertigo when up SKIN:Warm and moist (Rosy García) A/P Assessment and Plan 1. Acute onset of severe vertigo with dizziness. Still has some positional vertigo when up. PT eval and treat. DC planning needs. Appeciate neuro consult and plan of care. DC IVF 2. Hypokalemia, severe. resolved. monitor labs 3. Diabetes type 2, insulin-dependent., Hypoglycemic initially in the emergency room now resolved Doesnt like food preferences. Discussed options to select soups etc.m, reported to nurse. supper, use sliding scale . 4. Recent CVA. Appreciate neurology input continue plavix and ASA. , PT recommends home with HH, vertigo persists when up 5. Systolic murmur. No chest pain or SOB. ECG monitoring 6. Generalized weakness and debility Physical therapy, monitor up wih safety 7. GERD medical management Protonix 8. Anemia, probable secondary to chronic disease DC planning, possible today. Discussed with patient and son Discussed with nurse Is cussed with Dr. Brantley, seen on his behalf (Rosy García) Assessment and Plan seen, examined by myself, Dr Brantley, today Discussed with patient and her son at her bedside Is cussed with nurse Blood sugar 370 Blood pressure over 180 Start lisinopril 10 mg daily, first dose now Change insulin to NPH She would like to go to rehabilitation, she does not feel steady Physical therapy evaluation recommended home with home health Arrange home health tomorrow Discussed with mid level provider The exam, history, and the medical decision-making described in the above note were completed with the assistance of the mid-level provider. I reviewed the findings presented. I attest that I had a [id number] encounter with the patient on the same day, and personally performed and documented my assessment and findings in the medical record. (Alana Brantley MD) Rosy García Dec 11, 2016 07:31 Alana Brantley MD Dec 11, 2016 14:48
[2016-12-11] MEDS: MEDIUM DOSE INSULIN NOVOLOG SUPPLEMENTAL SCALE SQ SCH ×4 (08:00→21:00)
[2016-12-11] MEDS ORDERED: INSULIN HUMAN REGULAR 1,000 UNITS/10 ML VIAL SQ SCH ×2 (08:00→17:00)
[2016-12-11] MEDS: SODIUM CHLORIDE 0.9% FLUSH 10 ML FLUSH IV FLUSH SCH ×2 (09:00→21:02)
[2016-12-11] MEDS: predniSONE 5 MG TAB PO SCH (09:52)
[2016-12-11] MEDS: ASPIRIN EC 325 MG TABEC PO SCH (09:52)
[2016-12-11] MEDS: DOCUSATE SODIUM 50 MG/SENNA 8.6 MG TAB PO SCH ×2 (09:52→21:01)
[2016-12-11] MEDS: amLODIPine BESYLATE 5 MG TAB PO SCH (09:52)
[2016-12-11] MEDS: METOPROLOL SUCCINATE 50 MG EXTENDED RELEASE TAB PO SCH (09:52)
[2016-12-11] MEDS: PANTOPRAZOLE SOD 20 MG DELAYED RELEASE TAB PO SCH (09:53)
[2016-12-11] MEDS: CLOPIDOGREL 75 MG TAB PO SCH (09:53)
[2016-12-11] MEDS: ANASTROZOLE 1 MG TAB PO SCH (09:53)
[2016-12-11] MEDS: POTASSIUM CHLORIDE 20 MEQ CONTROLLED RELEASE TAB PO SCH ×2 (09:53→21:01)
[2016-12-11] MEDS: MECLIZINE HCL 25 MG TAB PO PRN ×2 (10:03→15:32)
--- NOTE | 2016-12-11 14:50 | HHI.FF ---
Face to Face Verification Diagnosis: (1) Cerebellar stroke, acute (2) Dizziness (3) Acute onset of severe vertigo Physical Therapy Order: Evaluate and Treat Instructions: general physical therapy, balance and vestibular exercises Occupational Therapy Order: Evaluate and Treat Home Health Nursing Order: Medical education Diabetic education Home Health Aide Order: To Assist In: Bathing and personal care I have seen patient Nancy Crawford on 12/11/16. My clinical findings support the need for the requested home health care services because: Ltd mobility - disease progression I certify that my clinical findings support that this patient is homebound because: Impaired cognitive ability/safety Unsteady gait/balance Unsafe to leave home unassisted Alana Joel MD Dec 11, 2016 14:50
[2016-12-11] MEDS: LISINOPRIL 5 MG TAB PO SCH (15:26)
[2016-12-11] MEDS ORDERED: INSULIN HUMAN NPH 1,000 UNITS/10 ML VIAL SQ SCH (17:00)
--- NOTE | 2016-12-11 18:25 | HHI.PR ---
Review/Management Daily Summary 12/11 much better today no nausea, dizziness only mild plans for outpt rehab, home health dr Mello f/u office scheduled Subjective Subjective Comments No acute events reported No headache Active Medications Current Medications Medications (Trade) Dose Ordered Sig/Kathleen Route Start Time Stop Time Status Last Admin (Arimidex) 1 mg DAILY PO 12/10/16 09:00 12/11/16 09:53 (Ecotrin Ec) 325 mg DAILY PO 12/10/16 09:00 12/11/16 09:52 (Lipitor) 10 mg HS PO 12/09/16 21:00 12/10/16 21:31 (Vitamin D3) 2,000 units HS PO 12/09/16 21:00 12/10/16 21:31 (Plavix) 75 mg DAILY PO 12/10/16 09:00 12/11/16 09:53 (Advil) 200 mg DAILY PRN PO 12/09/16 17:15 (Synthroid) 75 mcg HS PO 12/09/16 21:00 12/10/16 21:32 (Antivert) 25 mg BID PRN PO 12/09/16 17:15 12/11/16 15:32 (Toprol Xl) 50 mg DAILY PO 12/10/16 09:00 12/11/16 09:52 (Deltasone) 5 mg DAILY PO 12/10/16 09:00 12/11/16 09:52 (Protonix) 20 mg DAILY PO 12/10/16 09:00 12/11/16 09:53 (Claritin) 10 mg DAILY PRN PO 12/09/16 18:15 (D50w (Vial) Inj) 50 ml UNSCH PRN IV PUSH 12/09/16 17:15 (NS Flush) 2 ml UNSCH PRN IV FLUSH 12/09/16 17:15 (NS Flush) 2 ml BID IV FLUSH 12/09/16 21:00 12/10/16 08:57 (Zofran Inj) 4 mg Q6H PRN IVP 12/09/16 17:15 12/10/16 13:20 (Heparin Inj) 5,000 units Q12H SQ 12/09/16 18:00 12/11/16 18:06 (Narcan Inj) 0.4 mg UNSCH PRN IV PUSH 9/23/17 17:15 (An-Colace) 1 tab BID PO 12/09/16 21:00 12/11/16 09:52 (Milk Of Magnesia Liq) 30 ml Q12H PRN PO 12/09/16 17:15 (Senokot) 17.2 mg Q12H PRN PO 12/09/16 17:15 (Dulcolax Supp) 10 mg DAILY PRN RECTAL 12/09/16 17:15 (KCl) 20 meq Q12HR PO 12/09/16 21:00 12/11/16 09:53 (Glucagon Inj) 2 mg UNSCH PRN OTHER 12/10/16 08:45 (NovoLOG SUPPLEMENTAL SCALE) 1 ACHS SLIDING SCALE SQ 12/10/16 12:00 12/11/16 13:49 (Norvasc) 10 mg DAILY PO 12/12/16 09:00 (Prinivil) 10 mg DAILY PO 12/11/16 14:45 12/11/16 15:26 (NovoLIN N INJ) 26 units DAILY@08 SQ 12/12/16 08:00 (NovoLIN N INJ) 14 units DAILY@17 SQ 12/11/16 17:00 12/11/16 17:27 Allergies Allergies Coded Allergies ampicillin (Unverified Allergy, Severe, Rash, 12/06/16) cephalexin (Unverified Allergy, Severe, Rash, 12/06/16) penicillin G (Unverified Allergy, Severe, Rash, 12/06/16) Exam I&O / VS 12/11/16 12/11/16 12/12/16 15:00 23:00 07:00 Intake Total 550 ml Output Total 300 ml Balance -300 ml 550 ml IV Total 550 ml Output Urine Total 300 ml # Voids 1 Vital Signs Date Time Temp Pulse Resp B/P (MAP) Pulse Ox O2 Delivery O2 Flow Rate FiO2 12/11/16 17:54 98.3 74 16 134/65 (88) 96 12/11/16 16:10 76 12/11/16 12:39 98.4 78 16 188/78 (114) 95 12/11/16 12:05 79 12/11/16 09:11 99.9 78 20 192/87 (122) 95 12/11/16 08:05 79 12/11/16 03:20 97.9 80 18 162/66 (98) 96 12/10/16 23:57 98.3 83 18 142/90 (107) 97 12/10/16 20:59 97.9 75 18 139/65 (89) 96 Fox Bird MD Dec 11, 2016 18:25
[2016-12-11] MEDS: LEVOTHYROXINE SODIUM 75 MCG TAB PO SCH (21:01)
[2016-12-11] MEDS: CHOLECALCIFEROL (VIT D3) 1000 UNIT TAB PO SCH (21:01)
[2016-12-11] MEDS: ATORVASTATIN 10 MG TAB PO SCH (21:02)
[2016-12-12] VITALS (7 sets, daily range): BP systolic 143–165; BP diastolic 65–75; PULSE 74–84; RESP 18–20; TEMP 97.3–98.2; O2SAT 94–97
[2016-12-12] MEDS: HEPARIN SODIUM - SQ 10,000 UNITS/ML VIAL SQ SCH (06:20)
[2016-12-12] MEDS: MECLIZINE HCL 25 MG TAB PO PRN (07:38)
[2016-12-12] MEDS ORDERED: INSULIN HUMAN NPH 1,000 UNITS/10 ML VIAL SQ SCH (08:00)
--- NOTE | 2016-12-12 08:47 | HHI.PR ---
Subjective Subjective Remarks mildly dizzy when out of bed no headache feeling tired "I don't think I can handle being at home alone", feels unsteady and son is leaving no cp no sob no fever bp improved tele reviewed, SR, one episode of atrial tach Review of Systems Constitutional Constitutional Remarks 12 point ros completed, negative except as noted above Vitals/Results Intake & Output 12/12/16 12/12/16 12/13/16 15:00 23:00 07:00 # Voids 1 # Bowel Movements 1 Vital Signs Vital Signs Date Time Temp Pulse Resp B/P (MAP) Pulse Ox O2 Delivery O2 Flow Rate FiO2 12/12/16 08:03 97.3 76 20 146/65 (92) 97 12/12/16 04:01 84 12/12/16 03:55 98.0 79 18 143/66 (91) 94 12/12/16 01:04 98.2 74 18 165/75 (105) 94 12/12/16 00:02 78 12/11/16 20:00 84 12/11/16 19:29 95.8 84 16 134/63 (86) 97 12/11/16 17:54 98.3 74 16 134/65 (88) 96 12/11/16 16:10 76 12/11/16 12:39 98.4 78 16 188/78 (114) 95 12/11/16 12:05 79 12/11/16 09:11 99.9 78 20 192/87 (122) 95 CBC/BMP: 12/10/16 0535 12/10/16 0345 Physical Exam General General Appearance: Well Developed, Well Nourished, No Acute Distress, Comfortable Eyes Eye Exam: Pupils Equal, Pupils Reactive Ears & Nose Ears & Nose Exam: Nasal Mucosa Iraan Throat Throat Exam: Oral Mucosa Iraan & Moist Neck Neck Exam: Neck Supple, Trachea Midline Pulmonary Resp Exam: Clear Bilaterally, No Distress Cardiology CV Exam: Regular, Good Perfusion Gastrointestinal/Abdomen GI Exam: Soft, Non-Tender, Bowel Sounds Present, Non-Distended Musculoskeletal MS Exam: Joints Intact Integumentary Skin Exam: Warm, Dry Extremeties Extremities Exam: No Edema, Pedal Pulses Palpable Neurologic Neuro Exam: Alert, Awake, Oriented, Speech Clear, Moving All Extremities, No Focal Deficits Psychiatric Psych Exam: Appropriate Responses VTE Prophylaxis VTE Prophylaxis Meds: Heparin Assessment/Plan Problem List: (1) Acute onset of severe vertigo ICD Codes: R42 - Dizziness and giddiness Status: Acute (2) Near syncope ICD Codes: R55 - Syncope and collapse Status: Acute (3) Generalized weakness ICD Codes: R53.1 - Weakness Status: Acute (4) Type 2 diabetes mellitus ICD Codes: E11.9 - Type 2 diabetes mellitus without complications Status: Chronic (5) Hypothyroid ICD Codes: E03.9 - Hypothyroidism, unspecified Status: Chronic (6) Hyperlipidemia ICD Codes: E78.5 - Hyperlipidemia, unspecified Status: Chronic (7) Hypertension ICD Codes: I10 - Essential (primary) hypertension Status: Chronic (8) Hypokalemia ICD Codes: E87.6 - Hypokalemia Status: Acute (9) Valvular disease ICD Codes: I38 - Endocarditis, valve unspecified Status: Chronic (10) Cerebellar stroke, acute ICD Codes: I63.9 - Cerebral infarction, unspecified Status: Resolved Assessment/Plan Acute onset of severe vertigo with dizziness. Recent Cerebellar stroke, still symptomatic -PT eval today -continue ASA/Plavix/statins -appreciate neuro input, clear for dc -dizziness improved, only mild now. Continue Antivert as needed. -Fall precautions Hypokalemia, severe. resolved. -labs stable Diabetes type 2, insulin-dependent., Hypoglycemic initially in the emergency room now elevated -continue accuchecks AC and HS, insulin needs adjusted -blood glucose 200s, on Steroids- being weaned off Systolic murmur. -echo done recently, continue to monitor -f/u cardiology as OP Generalized weakness and debility -continue with PT -pt. needs SNF placement -will obtain OT eval -pt. remains unsteady needs assist, risk of falls and further injury. Not safe for going home d/w CM, will evaluate HTN uncontrolled -continue home meds -Lisinopril 10 mg po daily added yesterday -BP improved today Chronic steroids, being weaned off -continue Prednisone 5 mg po daily Hyperlipidemia -Continue statins History of breast cancer with mastectomies, currently in remission -Continue with Arimidex Hypothyroid -Continue with levothyroxine 75 g by mouth daily Heparin for DVT prophylaxis CM for dc planning, needs SNF vs CIR, pt. not safe for dc. PT report noted. Poss dc today when placement arranged needs to f/u Dr. Fulop and Sickinger diet-diabetic activity-as tolerated, fall precautions d/w RN d/w Dr. Joel d/w CM d/w Pt This patient was seen by myself and Dr. Joel, this note is written on his behalf. Problem Qualifiers (1) Type 2 diabetes mellitus: Qualified Codes: E11.8 - Type 2 diabetes mellitus with unspecified complications (2) Hypothyroid: Qualified Codes: E03.9 - Hypothyroidism, unspecified (3) Hyperlipidemia: Qualified Codes: E78.5 - Hyperlipidemia, unspecified (4) Hypertension: Qualified Codes: I10 - Essential (primary) hypertension Ann Ramirez Dec 12, 2016 08:47
[2016-12-12] MEDS ORDERED: NOVONP2 SQ ×2 (08:55)
[2016-12-12] MEDS ORDERED: LISI-519 PO (08:55)
--- NOTE | 2016-12-12 08:55 | HHI.DCPOC ---
Discharge Care Plan Diagnosis: (1) Acute onset of severe vertigo (2) Cerebellar stroke, acute Your Health Problems Are: Difficulty with ADL Goals to Promote Your Health * To prevent worsening of your condition and complications * To maintain your health at the optimal level Directions to Meet Your Goals Take your medications as prescribed Follow your dietary instruction Follow activity as directed Keep your appointments as scheduled Take your immunizations and boosters as scheduled If your symptoms worsen call your PCP, if no PCP go to Urgent Care Center or Emergency Room Smoking is Dangerous to Your Health. Avoid second hand smoke Call the 24-hour hour crisis hotline for domestic abuse at Ann Ramirez. [facility] Dec 12, 2016 08:55
--- NOTE | 2016-12-12 08:57 | HHI.DS ---
Discharge Summary Admission Date Dec 09, 2016 at 17:06 Discharge Date: Dec 12, 2016 Admitting Diagnosis near syncope, severe hypokalemia (1) Acute onset of severe vertigo ICD Codes: R42 - Dizziness and giddiness Status: Acute (2) Generalized weakness ICD Codes: R53.1 - Weakness Status: Acute (3) Hypokalemia ICD Codes: E87.6 - Hypokalemia Status: Acute (4) Near syncope ICD Codes: R55 - Syncope and collapse Status: Acute (5) Dizziness ICD Codes: R42 - Dizziness and giddiness Status: Acute (6) Hyperlipidemia ICD Codes: E78.5 - Hyperlipidemia, unspecified Status: Chronic (7) Hypertension ICD Codes: I10 - Essential (primary) hypertension Status: Chronic (8) Hypothyroid ICD Codes: E03.9 - Hypothyroidism, unspecified Status: Chronic (9) Type 2 diabetes mellitus ICD Codes: E11.9 - Type 2 diabetes mellitus without complications Status: Chronic (10) Valvular disease ICD Codes: I38 - Endocarditis, valve unspecified Status: Chronic (11) Cerebellar stroke, acute ICD Codes: I63.9 - Cerebral infarction, unspecified Status: Resolved CBC/BMP: 12/10/16 0535 12/10/16 0345 Significant Findings Laboratory Tests Test 12/09/16 13:30 12/09/16 16:05 12/09/16 20:03 12/10/16 03:45 Neutrophils (%) (Auto) 74.1 % (16.0-70.0) Albumin 3.2 GM/DL (3.4-5.0) Potassium Level 2.6 MEQ/L (3.5-5.1) Estimat Glomerular Filtration Rate 70 ML/MIN (>89) Troponin I LESS THAN 0.02 NG/ML LESS THAN 0.02 NG/ML Urine Mucus FEW /lpf (OCC) Blood Urea Nitrogen 6 MG/DL (7-18) Random Glucose 197 MG/DL (74-106) Calcium Level 8.4 MG/DL (8.5-10.1) Test 12/10/16 05:35 Red Blood Count 3.93 MIL/MM3 (4.00-5.30) Hemoglobin 11.3 GM/DL (11.6-15.3) Hematocrit 33.9 % (35.0-46.0) Monocytes (%) (Auto) 9.3 % (0.0-8.0) Imaging Last Impressions Head CT 12/09/16 1311 Signed Impressions: Service Date/Time: Friday, December 09, 2016 15:24 - CONCLUSION: Unremarkable exam with no change from 2 days ago. Conrad Kessler MD Chest X-Ray 12/09/16 1311 Signed Impressions: Service Date/Time: Friday, December 09, 2016 13:25 - CONCLUSION: No acute cardiopulmonary abnormality is identified. Timbo Lebron MD CT Angiography 12/09/16 0000 Signed Impressions: Service Date/Time: Friday, December 09, 2016 15:27 - CONCLUSION: 1. No evidence of pulmonary embolism. 2. At least 12 stable scattered noncalcified pulmonary nodules likely representing noncalcified granulomas. 3. The left lobe of the thyroid remains enlarged and homogeneous but is unchanged. Conrad Kessler MD Hospital Course This is a pleasant 81-year-old white female who is been struggling with weakness and dizziness for the past 24 hours. The patient was diagnosed with a cerebellar stroke on 12/07 and was discharged on 12/08. She was discharged with a Holter monitor and was getting ready to bring it back when her symptoms occurred. The patient noted that when she stood and went into the restroom, she became dizzy and unable to hold her balance. She did not pass out but she felt like initially she was going to. The patient is a known diabetic and has had a decreased appetite over the past few days. Had an episode of nausea and vomiting in the emergency room. The patient denies any chest pain. No shortness of breath. She does have generalized weakness and malaise. She denies any headaches. She does have a cough but states that is from her chronic gastroesophageal reflux disease (GERD). She was evaluated. LABORATORY STUDIES: White blood cell count 7.6, RBCs 4.27, hemoglobin 12.2, hematocrit 36.9, platelet count 247,000. Abnormal differential as her neutrophil percentage count is 74.1. Sodium 139, potassium 2.6, chloride 105, BUN 14, creatinine 0.79, GFR 70, random glucose 102. Troponin less than 0.02. Albumin 3.2. Total protein 6.7. Creatine kinase 54. Alkaline phosphatase 88. Bilirubin 0.9. AST 21, ALT 25. PT and INR is 1. Urine is light yellow and clear. Negative exam. Culture is not indicated. IMAGING STUDIES: Chest x-ray was normal exam. Head CT was unremarkable with no change from two days ago. CT angiography: No evidence of pulmonary embolism. At least 12 scattered noncalcified pulmonary nodules likely representing noncalcified granulomas, the left lobe of the thyroid remains enlarged from a previous study unchanged. Patient was admitted, during the course of the hospitalization the following took place: Patient admitted with Acute onset of severe vertigo with dizziness. Recent Cerebellar stroke, still symptomatic -Admitted, put on telemetry monitoring. Neuro checks were ordered. Neurology was consulted. -PT eval done, recommended rehabilitation. -continued ASA/Plavix/statins -appreciated neuro input, clear for dc. No further recommendations. -Holter monitor from recent admission reviewed, some episodes of SVT but otherwise no atrial fibrillation. -dizziness improved, only mild now. Continued Antivert as needed., Dose was decreased. -Fall precautions implemented. Hypokalemia, initially severe. resolved. -Potassium was replaced, BMP was followed Diabetes type 2, insulin-dependent., Hypoglycemic initially in the emergency room now elevated -continued accuchecks AC and HS, insulin needs adjusted -blood glucose 200s, on Steroids- being weaned off Systolic murmur. -echo done recently, continued to monitor -f/u cardiology as OP Generalized weakness and debility -continued with PT -pt. needs SNF placement -OT eval obtained -pt. remained unsteady needs assist, risk of falls and further injury. Not safe for going home Discussed with CM, patient will need rehabilitation placement HTN uncontrolled -continued home meds -Lisinopril 10 mg po daily added -BP improved Chronic steroids, being weaned off. She was thought to have temporal arteritis but biopsy was negative. -continue with Prednisone 5 mg po daily Hyperlipidemia -Continued statins History of breast cancer with mastectomies, currently in remission -Continued with Arimidex Hypothyroid -Continued with levothyroxine 75 g by mouth daily Was put on Heparin for DVT prophylaxis CM for dc planning, needs SNF vs [facility], pt. not safe for dc. PT report noted. Patient stable for discharge, was accepted at [facility] Was discharged to [facility] in stable condition Instructed to: needs to f/u Dr. Mello and Juliet diet-diabetic activity-as tolerated, fall precautions Pt Condition on Discharge: Stable Discharge Disposition: Discharge to SNF Discharge Instructions DIET: Follow Instructions for: Diabetic Diet Activities you can perform: Weight Bearing as Shabbir Follow up Referrals: Cardiology with Raf Chung DO Neurology with Jess Mello MD PCP Follow-up New Medications: Insulin Human NPH Inj (Novolin N Inj) 1,000 Unit/10 Ml Vial 26 UNITS SQ DAILY@08 for Blood Sugar Management, #1 INJECTION Insulin Human NPH Inj (Novolin N Inj) 1,000 Unit/10 Ml Vial 14 UNITS SQ DAILY@17 for Blood Sugar Management, #1 INJECTION Lisinopril (Lisinopril) 5 Mg Tab 10 MG PO DAILY for Blood Pressure Management, #30 TAB Continued Medications: Anastrozole (Anastrozole) 1 Mg Tab 1 MG PO DAILY for Breast Cancer, #30 TAB 0 Refills Atorvastatin (Atorvastatin) 10 Mg Tab 10 MG PO HS for Cholesterol Management, #30 TAB 0 Refills Calcium Citrate (Calcium Citrate) 250 Mg Tab 105 MG PO HS for Calcium Supplement, TAB 0 Refills Cholecalciferol (Vitamin D3) 2,000 Unit Cap 2000 UNITS PO HS for Nutritional Supplement, #1 BOTTLE 0 Refills Clopidogrel (Plavix) 75 Mg Tab 75 MG PO DAILY for Stroke Prevention, #30 TAB Felodipine ER (Felodipine ER) 5 Mg Damon 5 MG PO DAILY for Blood Pressure Management, #30 TAB 0 Refills Fexofenadine (Brandi Allergy) 180 Mg Tab 180 MG PO DAILY PRN for Allergy Management, #30 TAB 0 Refills Insulin Human Regular Inj (Novolin R Inj) 1,000 Unit/10 Ml Vial 12 UNITS SQ AC BREAKFAST for Blood Sugar Management, #10 ML 0 Refills Insulin Human Regular Inj (Novolin R Inj) 1,000 Unit/10 Ml Vial 10 UNITS SQ AC DINNER for Blood Sugar Management, #10 ML 0 Refills Levothyroxine (Synthroid) 75 Mcg Tab 75 MCG PO HS for Thyroid, #30 TAB 0 Refills Meclizine (Meclizine) 25 Mg Tab 25 MG PO DIRECTED PRN for VERTIGO, TAB 0 Refills Metoprolol Succinate ER 24 HR (Metoprolol Succinate ER 24 HR) 50 Mg Tab 50 MG PO DAILY, #30 TAB 0 Refills Prednisone (Prednisone) 5 Mg Tab 5 MG PO DAILY, TAB 0 Refills Rabeprazole (Rabeprazole) 20 Mg Tab 20 MG PO DAILY for Reflux, #30 TAB 0 Refills Telmisartan-Hydrochlorothiazide (Micardis Hct) 80-12.5 Mg Tab 1 TAB PO DAILY for Blood Pressure Management, #30 TAB 0 Refills Discontinued Medications: Aspirin (Aspirin) 81 Mg Chew 81 MG CHEW HS, TAB [address] (Aspirin EC) 325 Mg Tabdr 325 MG PO DAILY for Stroke Prevention for 3 Days, #3 TAB continue for 3 days then discontinue Ibuprofen (Ibuprofen) 200 Mg Cap 200 MG PO DAILY PRN for PAIN SCALE 1 TO 10, CAP 0 Refills Insulin Human NPH Inj (Novolin N Inj) 1,000 Unit/10 Ml Vial 39 UNITS SQ AC BREAKFAST for Blood Sugar Management, #10 ML 0 Refills Insulin Human NPH Inj (Novolin N Inj) 1,000 Unit/10 Ml Vial 14 UNITS SQ AC DINNER for Blood Sugar Management, #10 ML 0 Refills Ann Ramirez Dec 12, 2016 08:57
[2016-12-12] MEDS: DOCUSATE SODIUM 50 MG/SENNA 8.6 MG TAB PO SCH (09:00)
[2016-12-12] MEDS: LISINOPRIL 5 MG TAB PO SCH (09:27)
[2016-12-12] MEDS: PANTOPRAZOLE SOD 20 MG DELAYED RELEASE TAB PO SCH (09:27)
[2016-12-12] MEDS: ASPIRIN EC 325 MG TABEC PO SCH (09:27)
[2016-12-12] MEDS: METOPROLOL SUCCINATE 50 MG EXTENDED RELEASE TAB PO SCH (09:28)
[2016-12-12] MEDS: CLOPIDOGREL 75 MG TAB PO SCH (09:28)
[2016-12-12] MEDS: predniSONE 5 MG TAB PO SCH (09:28)
[2016-12-12] MEDS: POTASSIUM CHLORIDE 20 MEQ CONTROLLED RELEASE TAB PO SCH (09:28)
[2016-12-12] MEDS: ANASTROZOLE 1 MG TAB PO SCH (09:28)
[2016-12-12] MEDS: SODIUM CHLORIDE 0.9% FLUSH 10 ML FLUSH IV FLUSH SCH (09:28)
[2016-12-12] MEDS: MEDIUM DOSE INSULIN NOVOLOG SUPPLEMENTAL SCALE SQ SCH ×2 (09:35→13:35)
[2016-12-12] MEDS ORDERED: MECLIZINE HCL 25 MG TAB PO PRN (13:00)
[2016-12-12] MEDS ORDERED: MECLIZINE HCL 25 MG TAB PO SCH (14:00)
[2016-12-20] MEDS ORDERED: COMMODE 3-IN-11 MIS (13:59)
[2016-12-20] MEDS ORDERED: WHEEMIS3 (13:59)
[2016-12-20] MEDS ORDERED: MISCMIS81 (13:59)
[2016-12-26] MEDS ORDERED: FELO5TAB PO (08:44)
[2016-12-26] MEDS ORDERED: VITA2000 PO (08:44)
[2016-12-26] MEDS ORDERED: NOVORP2 SQ ×2 (08:44)
[2016-12-26] MEDS ORDERED: NOVONP2 SQ ×2 (08:44)
[2016-12-26] MEDS ORDERED: METO50TA11 PO (08:44)
[2016-12-26] MEDS ORDERED: ATOR10TA15 PO (08:44)
[2016-12-26] MEDS ORDERED: ANAS1TAB PO (08:44)
[2016-12-26] MEDS ORDERED: PLAV75TA29 PO (08:44)
[2016-12-26] MEDS ORDERED: POTA-243 PO (08:44)
[2016-12-26] MEDS ORDERED: FAMO20TA2 PO (08:44)
[2016-12-26] MEDS ORDERED: MECL1TAB42 PO (08:44)
[2016-12-26] MEDS ORDERED: LISI-519 PO (08:44)
[2016-12-26] MEDS ORDERED: LEVO.075 PO (08:44)
== END 2016-12-12 14:19 ==
LOC: NEPC 12:46 → NEDA 17:05 → UNDOADMOB 17:06 → NEPFCDU 18:37 → NEDA 18:37 → INTOOBSV 12-12 09:19 → OBSVTOIN 12-12 09:19 → UNDODISOB 12-12 14:19
PROVIDERS: ADMIT Specialist; ATTEND Specialist
DX: R42 Dizziness and giddiness (principal); R55 Syncope and collapse; E11.649 Type 2 diabetes mellitus with hypoglycemia without coma; D63.8 Anemia in other chronic diseases classified elsewhere; I10 Essential (primary) hypertension; E78.5 Hyperlipidemia, unspecified; E87.6 Hypokalemia; E03.9 Hypothyroidism, unspecified; K21.9 Gastro-esophageal reflux disease without esophagitis; R06.02 Shortness of breath; K44.9 Diaphragmatic hernia without obstruction or gangrene; E04.2 Nontoxic multinodular goiter; R05 Cough; I45.10 Unspecified right bundle-branch block; R11.2 Nausea with vomiting, unspecified; Z85.3 Personal history of malignant neoplasm of breast; Z79.01 Long term (current) use of anticoagulants; Z90.13 Acquired absence of bilateral breasts and nipples; Z79.4 Long term (current) use of insulin; Z79.02 Long term (current) use of antithrombotics/antiplatelets; Z86.73 Personal history of transient ischemic attack (TIA), and cerebral infarction without residual deficits; Z79.52 Long term (current) use of systemic steroids
CPT/HCPCS: 70450; 71010; 71275; 80048; 80053; 81001; 82550; 82948; 84484; 85025; 85610; 93005; 96361; 96365; 96366; 96372; 96375; 96376; 97110; 97116; 97163; 97166; 99285; G0378; G8987; G8988; J1644; J1815; J2405; J3480; J7040; J7512; Q9967

== ENCOUNTER → 2016-12-29 | Outpatient (CLI) | payer MEDICARE, OTHER ==
[~2016-12-29] MED LIST changes: -ASPI325T33 PO; -ASPI81CH CHEW; +COMMODE 3-IN-11 MIS; +FAMO20TA2 PO; -IBUP200C PO; +LISI-519 PO; +MECL1TAB42 PO; +MISCMIS81; +POTA-243 PO; +WHEEMIS3
[2016-12-29 12:51] LABS: BICARBONATE 24.7 MEQ/L (21.0-32.0); POTASSIUM 3.8 MEQ/L (3.5-5.1)
== END ==
LOC: CLAB 11:55
PROVIDERS: ATTEND Internal Medicine
DX: I10 Essential (primary) hypertension (principal)
CPT/HCPCS: 36415; 80048

== ENCOUNTER 2017-01-26 10:11 | Day surgery (SDC) | payer MEDICARE, OTHER ==
[~2017-01-26 10:11] MED LIST changes: +KLOR10TA PO; +METO1TAB9 PO; -METO50TA11 PO; -POTA-243 PO
[2017-01-26] MEDS ORDERED: NS 1000 ML IV SCH (12:00)
[2017-01-26] MEDS ORDERED: VANCOMYCIN 1000 MG/NS 250 ML IV SCH ×2 (12:00)
[2017-01-26] MEDS ORDERED: CHLORHEXIDINE GLUCONATE 2 % 1 PACK (2 CLOTHS) TOPICAL SCH (12:00)
[2017-01-26] MEDS ORDERED: POVIDONE IODINE 5% (ANTISEPSIS KIT) 4 APPLICATIONS EACH NARE SCH (12:00)
[2017-01-26] MEDS ORDERED: MUPIROCIN 2% OINT 1 APPLIC/GM SYR NASAL SCH (12:00)
[2017-01-31] MEDS ORDERED: NOVONP2 SQ ×2 (18:34)
== END 2017-01-26 15:41 | disposition home or self-care (01) ==
LOC: HDOC 10:11 → HDIC 10:12 → HDOC 15:41
PROVIDERS: ATTEND Nuclear Medicine Nuclear Cardiology
DX: I63.9 Cerebral infarction, unspecified (principal); I11.9 Hypertensive heart disease without heart failure; I45.10 Unspecified right bundle-branch block; E11.9 Type 2 diabetes mellitus without complications; Z79.4 Long term (current) use of insulin
CPT/HCPCS: 33282; C1764; J3370; J7050

== ENCOUNTER → 2017-03-01 | Outpatient (CLI) | payer MEDICARE, OTHER ==
[~2017-03-01] MED LIST changes: -COMMODE 3-IN-11 MIS; -FAMO20TA2 PO; -MECL-62 PO; -MICA80TA2 PO; -MISCMIS81; -PRED5TAB PO; -RABE1TAB PO
[2017-03-01 08:57] LABS: AUTOMATED NEUTROPHIL # 2.9 TH/MM3 (1.8-7.7); BASOPHIL % 0.8 % (0.0-2.0); EOSINOPHIL # 0.2 TH/MM3 (0-0.4); HEMATOCRIT 35.8 % (35.0-46.0); HEMO FLAGS DIFF FINAL; LYMPH % 20.9 % (9.0-44.0); LYMPHOCYTE # 0.9 TH/MM3 (1.0-4.8); MEAN CELL VOLUME 83.6 FL (80.0-100.0); MEAN CORPUSCULAR HEMOGLOBIN 27.8 PG (27.0-34.0); MEAN CORPUSCULAR HGB CONC 33.3 % (32.0-36.0); MONO % 10.3 % (0.0-8.0); PLATELET COUNT 222 TH/MM3 (150-450); RED BLOOD COUNT 4.28 MIL/MM3 (4.00-5.30); RED CELL DISTRIBUTION WIDTH 13.5 % (11.6-17.2); WHITE BLOOD COUNT 4.5 TH/MM3 (4.0-11.0)
[2017-03-01 10:12] LABS: ANION GAP 4 MEQ/L (5-15); AST (GOT) 10 U/L (15-37); BICARBONATE 29.1 MEQ/L (21.0-32.0); BLOOD UREA NITROGEN 12 MG/DL (7-18); CHLORIDE 102 MEQ/L (98-107); GLOMERULAR FILTRATION RATE 78 ML/MIN (>89); GLUCOSE,FASTING 236 MG/DL (74-99); POTASSIUM 3.8 MEQ/L (3.5-5.1); SODIUM (NA) 135 MEQ/L (136-145)
[2017-03-01 10:22] LABS: ALKALINE PHOSPHATASE 138 U/L (45-117); ALT (GPT) 14 U/L (10-53); FREE T4 1.32 NG/DL (0.76-1.46); LDL CHOLESTEROL 58 MG/DL (0-99); TOTAL BILIRUBIN ADULT 0.4 MG/DL (0.2-1.0)
[2017-03-01 10:29] LABS: MICRO ALBUMIN RANDOM URINE RAW 5.4 MG/L (0.0-30.0)
[2017-03-01 11:35] LABS: HEMOGLOBIN A1a 1.1 %; HEMOGLOBIN A1b 1.8 %; HEMOGLOBIN Ao 82.8 %; HEMOGLOBIN LA1C 3.1 %; HEMOGLOBIN P3 4.2 %
== END ==
LOC: CLAB 08:26
DX: E03.9 Hypothyroidism, unspecified (principal); E10.9 Type 1 diabetes mellitus without complications; I11.9 Hypertensive heart disease without heart failure; I45.10 Unspecified right bundle-branch block
CPT/HCPCS: 36415; 80053; 80061; 82043; 83036; 84439; 84443; 85025

== ENCOUNTER → 2017-05-31 | Outpatient (CLI) | payer MEDICARE, OTHER ==
[2017-05-31 09:00] LABS: AUTOMATED NEUTROPHIL # 3.5 TH/MM3 (1.8-7.7); BASOPHIL % 0.6 % (0.0-2.0); EOSINOPHIL # 0.2 TH/MM3 (0-0.4); EOSINOPHIL % 3.7 % (0.0-4.0); HEMOGLOBIN 11.9 GM/DL (11.6-15.3); LYMPH % 18.6 % (9.0-44.0); LYMPHOCYTE # 0.9 TH/MM3 (1.0-4.8); MEAN CELL VOLUME 80.6 FL (80.0-100.0); MEAN CORPUSCULAR HEMOGLOBIN 27.3 PG (27.0-34.0); MEAN CORPUSCULAR HGB CONC 33.9 % (32.0-36.0); MEAN PLATELET VOLUME 7.3 FL (7.0-11.0); MONO % 8.5 % (0.0-8.0); MONOCYTE # 0.4 TH/MM3 (0-0.9); NEUT % 68.6 % (16.0-70.0); PLATELET COUNT 237 TH/MM3 (150-450); RED BLOOD COUNT 4.34 MIL/MM3 (4.00-5.30); RED CELL DISTRIBUTION WIDTH 15.4 % (11.6-17.2); WHITE BLOOD COUNT 5.1 TH/MM3 (4.0-11.0)
[2017-05-31 09:23] LABS: BILIRUBIN, URINE NEG (NEG); BLOOD, URINE NEG (NEG); GLUCOSE,URINE NEG (NEG); KETONE, URINE NEG (NEG); NITRITE,URINE NEG (NEG); PH, URINE 6.5 (5.0-8.5); SQUAMOUS EPITHELIAL CELL URINE <1 /hpf (0-5); URINE COLOR LIGHT-YELLOW (YELLW/STRAW); URINE LEUKOCYTE ESTERASE NEG (NEG)
[2017-05-31 09:25] LABS: ALBUMIN 3.5 GM/DL (3.4-5.0); AST (GOT) 16 U/L (15-37); BICARBONATE 27.5 MEQ/L (21.0-32.0); BLOOD UREA NITROGEN 12 MG/DL (7-18); CALCIUM 9.2 MG/DL (8.5-10.1); CHLORIDE 105 MEQ/L (98-107); CHOLESTEROL 126 MG/DL (120-200); CREATININE 0.73 MG/DL (0.50-1.00); GLOMERULAR FILTRATION RATE 77 ML/MIN (>89); GLUCOSE,FASTING 146 MG/DL (74-99); SODIUM (NA) 140 MEQ/L (136-145)
[2017-05-31 09:33] LABS: ALKALINE PHOSPHATASE 125 U/L (45-117); ALT (GPT) 16 U/L (10-53); CHOLESTEROL/ HDL RATIO 2.21 RATIO; FREE T4 1.12 NG/DL (0.76-1.46); HDL CHOLESTEROL 56.8 MG/DL (40.0-60.0); LDL CHOLESTEROL 57 MG/DL (0-99); TOTAL BILIRUBIN ADULT 0.5 MG/DL (0.2-1.0); TOTAL PROTEIN 6.6 GM/DL (6.4-8.2); TRIGLYCERIDES 61 MG/DL (42-150)
[2017-05-31 16:23] LABS: HEMOGLOBIN A1C 7.2 % (4.3-6.0)
== END ==
LOC: CLAB 08:26
DX: E10.9 Type 1 diabetes mellitus without complications (principal); E03.9 Hypothyroidism, unspecified
CPT/HCPCS: 36415; 80053; 80061; 81001; 82043; 83036; 84439; 84443; 85025

== ENCOUNTER → 2017-08-08 | Outpatient (CLI) | payer MEDICARE, OTHER | LOC: CLAB 13:41 | DX: B19.20 Unspecified viral hepatitis C without hepatic coma (principal) | CPT/HCPCS: 36415; 86803 ==

== ENCOUNTER → 2017-08-29 | Outpatient (CLI) | payer MEDICARE, OTHER ==
[2017-08-29 09:16] LABS: BILIRUBIN, URINE NEG (NEG); BLOOD, URINE NEG (NEG); GLUCOSE,URINE NEG (NEG); KETONE, URINE NEG (NEG); NITRITE,URINE NEG (NEG); SQUAMOUS EPITHELIAL CELL URINE 1 /hpf (0-5); URINE COLOR LIGHT-YELLOW (YELLW/STRAW); URINE LEUKOCYTE ESTERASE NEG (NEG)
[2017-08-29 09:35] LABS: ALBUMIN 3.5 GM/DL (3.4-5.0); AST (GOT) 16 U/L (15-37); BICARBONATE 26.4 MEQ/L (21.0-32.0); BLOOD UREA NITROGEN 13 MG/DL (7-18); CALCIUM 8.8 MG/DL (8.5-10.1); CHLORIDE 103 MEQ/L (98-107); CHOLESTEROL 129 MG/DL (120-200); CREATININE 0.74 MG/DL (0.50-1.00); GLOMERULAR FILTRATION RATE 75 ML/MIN (>89); SODIUM (NA) 138 MEQ/L (136-145)
[2017-08-29 09:37] LABS: ALT (GPT) 18 U/L (10-53); CHOLESTEROL/ HDL RATIO 2.34 RATIO; GLUCOSE,FASTING 125 MG/DL (74-99); LDL CHOLESTEROL 61 MG/DL (0-99); TRIGLYCERIDES 66 MG/DL (42-150)
[2017-08-29 09:46] LABS: AUTOMATED NEUTROPHIL # 3.4 TH/MM3 (1.8-7.7); BASOPHIL % 0.7 % (0.0-2.0); EOSINOPHIL # 0.2 TH/MM3 (0-0.4); HEMATOCRIT 36.2 % (35.0-46.0); HEMOGLOBIN 12.3 GM/DL (11.6-15.3); LYMPH % 17.3 % (9.0-44.0); LYMPHOCYTE # 0.8 TH/MM3 (1.0-4.8); MEAN CELL VOLUME 81.8 FL (80.0-100.0); MEAN CORPUSCULAR HEMOGLOBIN 27.8 PG (27.0-34.0); MEAN PLATELET VOLUME 7.6 FL (7.0-11.0); MONO % 7.4 % (0.0-8.0); MONOCYTE # 0.4 TH/MM3 (0-0.9); NEUT % 69.6 % (16.0-70.0); PLATELET COUNT 228 TH/MM3 (150-450); RED BLOOD COUNT 4.43 MIL/MM3 (4.00-5.30); RED CELL DISTRIBUTION WIDTH 14.4 % (11.6-17.2); WHITE BLOOD COUNT 4.9 TH/MM3 (4.0-11.0)
[2017-08-29 10:02] LABS: ALKALINE PHOSPHATASE 129 U/L (45-117); FREE T4 1.27 NG/DL (0.76-1.46); TOTAL BILIRUBIN ADULT 0.6 MG/DL (0.2-1.0); TOTAL PROTEIN 6.6 GM/DL (6.4-8.2)
[2017-08-29 16:06] LABS: HEMOGLOBIN A1C 7.1 % (4.3-6.0)
== END ==
LOC: CLAB 08:44
DX: E10.9 Type 1 diabetes mellitus without complications (principal); E03.9 Hypothyroidism, unspecified; E53.8 Deficiency of other specified B group vitamins; E55.9 Vitamin D deficiency, unspecified
CPT/HCPCS: 36415; 80053; 80061; 81001; 82043; 82306; 82607; 83036; 84439; 84443; 85025

== ENCOUNTER 2017-11-06 08:54 | Observation (INO) ==
[2017-11-06 09:50] LABS: Baso % (Auto) 0.7 % (0.0-2.0); Eos # (Auto) 0.2 th/mm3 (0.0-0.4); Eos % (Auto) 3.1 % (0.0-4.0); Hematocrit 40.2 % (35.0-46.0); Hemoglobin 13.2 gm/dL (11.6-15.3); Lymph % (Auto) 15.2 % (9.0-44.0); Mean Corpuscular HGB Conc 32.7 % (32.0-36.0); Mean Corpuscular Hemoglobin 27.6 pg (27.0-34.0); Mean Corpuscular Volume 84.3 fL (80.0-100.0); Mean Platelet Volume 7.8 fL (7.0-11.0); Mono # (Auto) 0.4 th/mm3 (0.0-0.9); Mono % (Auto) 6.8 % (0.0-8.0); Neut # (Auto) 4.8 th/mm3 (1.8-7.7); Neut % (Auto) 74.2 % (16.0-70.0); Platelet Count 216 th/mm3 (150-450); Red Blood Count 4.76 mil/mm3 (4.00-5.30); Red Cell Distribution Width 14.9 % (11.6-17.2); White Blood Count 6.5 th/mm3 (4.0-11.0)
[2017-11-06] MEDS ORDERED: Aspirin 325 MG Tablet PO ONE (09:52)
--- NOTE | 2017-11-06 09:56 | ED ---
HPI General Chief Complaint: Chest Pain Stated Complaint: chest pain/left arm pain Time Seen by Provider: 11/06/17 09:40 Source: patient Mode of arrival: ambulatory Limitations: no limitations History of Present Illness HPI narrative: 82-year-old female patient with history of diabetes, hypertension , recent onset of atrial fibrillation, presents to the ER today because of substernal and left-sided chest discomfort which she currently rates it a 3 out of 10, radiates down the left arm, without obvious exacerbating alleviating factors. She states it began when she was sleeping. She denies any shortness of breath, fevers, coughing, or any other symptoms. Complete Quality Measures for STEMI Alert Patients Related Data Home Medications Medication Instructions Recorded Confirmed apixaban [Eliquis] 5 mg PO DAILY 11/06/17 11/06/17 atorvastatin 10 mg PO DAILY 11/06/17 11/06/17 calcium carbonate-vitamin D3 1 tab PO HS 11/06/17 11/06/17 [Calcium 600 + D(3)] diltiazem HCl 120 mg PO DAILY 11/06/17 11/06/17 folic acid 0.4 mg PO DAILY 11/06/17 11/06/17 insulin NPH isoph U-100 human 10 unit SUB-Q QPM 11/06/17 11/06/17 [Novolin N NPH U-100 Insulin] insulin NPH isoph U-100 human 34 unit SUB-Q QAM 11/06/17 11/06/17 [Novolin N NPH U-100 Insulin] insulin regular human [Novolin R See Label Instructions .ROUTE 11/06/17 11/06/17 Regular U-100 Insuln] .COMPLEX insulin regular human [Novolin R See Label Instructions .ROUTE 11/06/17 11/06/17 Regular U-100 Insuln] .COMPLEX levothyroxine [Synthroid] 75 mcg PO DAILY 11/06/17 11/06/17 metoprolol succinate 50 mg PO DAILY 11/06/17 11/06/17 potassium chloride 10 meq PO DAILY 11/06/17 11/06/17 rabeprazole [Aciphex] 20 mg PO DAILY 11/06/17 11/06/17 telmisartan [Micardis] 80 mg PO DAILY 11/06/17 11/06/17 Allergies Allergy/AdvReac Type Severity Reaction Status Date / Time ampicillin Allergy Severe Rash Verified 11/06/17 09:20 cephalexin Allergy Severe Rash Verified 11/06/17 09:20 penicillin G Allergy Severe Rash Verified 11/06/17 09:20 Review of Systems ROS: all other systems reviewed are negative PMFSH History History Provided By: Patient Medical History Medical History Atrial fibrillation (Acute) Diabetes (Acute) High cholesterol (Acute) Hypertension (Acute) Surgical History Surgical History H/O mastectomy (Acute) Social History Social History Substance History: No History of Abuse Second Hand Smoke Exposure: No Smoking Status: Never smoker How Often Do You Have a Drink Containing Alcohol: Never Recent Travel in [facility] within the Last 8 Weeks: No Recent Out of Country Travel within the Last 8 Weeks: No Exam Narrative Exam Narrative: GENERAL: Well-developed elderly female patient currently in mild distress. Awake and oriented 3. SKIN: Focused skin assessment warm/dry. HEAD: Atraumatic. Normocephalic. EYES: Pupils equal and round. No scleral icterus. No injection or drainage. ENT: No nasal bleeding or discharge. Mucous membranes pink and moist. NECK: Trachea midline. No JVD. CARDIOVASCULAR: Regular rate and rhythm. No murmur appreciated. Pulses are present and equal bilaterally. RESPIRATORY: No accessory muscle use. Clear to auscultation. Breath sounds equal bilaterally. GASTROINTESTINAL: Abdomen soft, non-tender, nondistended. Hepatic and splenic margins not palpable. MUSCULOSKELETAL: No obvious deformities. No clubbing. No cyanosis. No edema. NEUROLOGICAL: Awake and alert. No obvious cranial nerve deficits. Motor grossly within normal limits. Normal speech. PSYCHIATRIC: Appropriate mood and affect; insight and judgment normal. Course Initial Documented Vital Signs Pulse Rate 64 11/06/17 08:59 Respiratory Rate 18 11/06/17 08:59 Blood Pressure 202/81 H 11/06/17 08:59 Pulse Oximetry 97 11/06/17 08:59 Last Documented Vital Signs Pulse Rate 64 11/06/17 09:32 Respiratory Rate 17 11/06/17 09:32 Blood Pressure 189/74 H 11/06/17 09:32 Pulse Oximetry 99 11/06/17 09:40 Medical Decision Making MDM Narrative Medical decision making narrative: EKG did not show any signs of acute ST changes. Cardiac enzymes are negative. Lab work was otherwise fairly unremarkable. Patient's blood pressure came down after nitroglycerin. She was given aspirin in the ER. Considering her history, plan would be to admit her to chest pain center for further evaluation. Medical Screen Exam Complete: Yes Emergency Medical Condition: Yes Differential Diagnosis Differential Diagnosis: ACS versus dysrhythmias versus anxiety attack versus costochondritis Lab Data Result diagrams: 11/06/17 09:40 11/06/17 09:40 Lab Results 11/06/17 11/06/17 11/06/17 Range/Units 09:40 09:40 09:40 WBC 6.5 (4.0-11.0) th/mm3 RBC 4.76 (4.00-5.30) mil/mm3 Hgb 13.2 (11.6-15.3) gm/dL Hct 40.2 (35.0-46.0) % MCV 84.3 (80.0-100.0) fL MCH 27.6 (27.0-34.0) pg MCHC 32.7 (32.0-36.0) % RDW 14.9 (11.6-17.2) % Plt Count 216 (150-450) th/mm3 MPV 7.8 (7.0-11.0) fL Neut % (Auto) 74.2 H (16.0-70.0) % Lymph % (Auto) 15.2 (9.0-44.0) % Greenlee % (Auto) 6.8 (0.0-8.0) % Eos % (Auto) 3.1 (0.0-4.0) % Baso % (Auto) 0.7 (0.0-2.0) % Neut # (Auto) 4.8 (1.8-7.7) th/mm3 Lymph # (Auto) 1.0 (1.0-4.8) th/mm3 Greenlee # (Auto) 0.4 (0.0-0.9) th/mm3 Eos # (Auto) 0.2 (0.0-0.4) th/mm3 Baso # (Auto) 0.0 (0.0-0.2) th/mm3 WBC Differential . Differential Comment Auto diff final PT 11.0 (9.8-11.6) sec INR 1.1 Ratio APTT 30.6 H (24.3-30.1) sec Sodium 137 (136-145) meq/L Potassium 3.8 (3.5-5.1) meq/L Chloride 103 (98-107) meq/L Carbon Dioxide 24.3 (21.0-32.0) meq/L Anion Gap 10 (5-15) meq/L BUN 13 (7-18) mg/dL Creatinine 0.76 (0.50-1.00) mg/dL Estimated GFR 73 L (>89) mL/min Random Glucose 230 H (74-106) mg/dL Calcium 8.8 (8.5-10.1) mg/dL Total Bilirubin 0.8 (0.2-1.0) mg/dL AST 17 (15-37) U/L ALT 16 (10-53) U/L Alkaline Phosphatase 129 H (45-117) U/L Troponin I Less than 0.02 L (0.02-0.05) ng/mL Total Protein 7.0 (6.4-8.2) g/dL Albumin 3.7 (3.4-5.0) g/dL Imaging Data Radiologist's impression: Chest X-Ray 11/06/17 09:40 CONCLUSION: No acute cardiopulmonary abnormality is identified. Discharge Plan Discharge Disposition Patient Disposition: 30 Still Patient Discharge Condition Condition: Stable Discharge Details Anticipated Discharge Date: 11/06/17 Diagnosis: Chest pain Physicians Team ED Provider: Shailesh Hicks Primary Care Provider: Alexsander Chavez Rxs /Orders / Referrals /Forms Prescriptions: No Action rabeprazole [Aciphex] 20 mg Tablet,Delayed Release (Dr/Ec) 20 mg PO DAILY RF: 0 atorvastatin 10 mg Tablet 10 mg PO DAILY RF: 0 metoprolol succinate 50 mg Tablet Extended Release 24 Hr 50 mg PO DAILY RF: 0 potassium chloride 10 mEq Tablet Extended Release 10 meq PO DAILY RF: 0 folic acid 400 mcg Tablet 0.4 mg PO DAILY RF: 0 levothyroxine [Synthroid] 75 mcg Tablet 75 mcg PO DAILY RF: 0 insulin regular human [Novolin R Regular U-100 Insuln] 100 unit/mL Solution See Label Instructions .ROUTE .COMPLEX RF: 0 insulin regular human [Novolin R Regular U-100 Insuln] 100 unit/mL Solution See Label Instructions .ROUTE .COMPLEX RF: 0 telmisartan [Micardis] 80 mg Tablet 80 mg PO DAILY RF: 0 diltiazem HCl 120 mg Capsule,Ext.Rel 24h Degradable 120 mg PO DAILY RF: 0 insulin NPH isoph U-100 human [Novolin N NPH U-100 Insulin] 100 unit/mL Suspension 10 unit SUB-Q QPM RF: 0 insulin NPH isoph U-100 human [Novolin N NPH U-100 Insulin] 100 unit/mL Suspension 34 unit SUB-Q QAM RF: 0 calcium carbonate-vitamin D3 [Calcium 600 + D(3)] 600 mg calcium- 200 unit Capsule 1 tab PO HS RF: 0 apixaban [Eliquis] 5 mg Tablet 5 mg PO DAILY RF: 0 Discharge Instructions Patient Printed Instructions: Chest Pain (ED) Discharge Interventions Interventions: Vital Signs Last Done: 11/06/17 09:32 Status ED Status: With Doctor
[2017-11-06 10:05] LABS: Albumin 3.7 g/dL (3.4-5.0); Anion Gap 10 meq/L (5-15); Aspartate Aminotransferase 17 U/L (15-37); Blood Urea Nitrogen 13 mg/dL (7-18); Calcium 8.8 mg/dL (8.5-10.1); Carbon Dioxide 24.3 meq/L (21.0-32.0); Chloride 103 meq/L (98-107); Glomerular Filtration Rate 73 mL/min (>89); Glucose,Random 230 mg/dL (74-106); Potassium 3.8 meq/L (3.5-5.1); Sodium 137 meq/L (136-145)
[2017-11-06 10:06] LABS: Alanine Aminotransferase 16 U/L (10-53)
--- NOTE | 2017-11-06 10:06 | XR ---
EXAM DATE: 11/06/2017 10:01 AM EDT AGE/SEX: 82 years / Female INDICATIONS: Chest pain today. CLINICAL DATA: This is the patient's initial encounter. Patient reports that signs and symptoms have been present for 1 day and indicates a pain score of 5/10. MEDICAL/SURGICAL HISTORY: Hypertension. Carcinoma, breast. Diabetes mellitus type I. Stroke. Mastectomy, bilateral. COMPARISON: [facility] [place], CHEST SINGLE AP, 12/09/2016. . FINDINGS: Portable AP view of the chest demonstrates a normal-sized cardiac silhouette. EKG lines overlie the p atient. A lead less pacemaker overlies the left heart. No effusion, consolidation, or pneumothorax is identified. Bones and soft tissues demonstrate no acute finding. CONCLUSION: No acute cardiopulmonary abnormality is identified. Electronically signed by: Timbo Lebron MD 11/06/2017 10:04 AM EDT
[2017-11-06 10:10] LABS: Activated Partial Thrombo Time 30.6 sec (24.3-30.1); Alkaline Phosphatase 129 U/L (45-117); INR 1.1 Ratio
--- NOTE | 2017-11-06 11:50 | P.HPCA ---
History of Present Illness Primary Care Physician: Alexsander Chavez MD, PhD Chief Complaint: Chest pain History of Present Illness: This is an 82-year-old female the presents to the emergency department via private vehicle with her son with a complaint of chest discomfort patient follows Dr. Pruett and has had a loop recorder. She was notified last that atrial fibrillation was detected on the loop recorder and was started on new medications including Eliquis. States she did not notice any arrhythmias. She presents today complaining of waking up about 2:00 in the morning with a heaviness in the center of her chest is rated as a 4-5 out of 10 that was intermittent for a few episodes each lasting 4-5 minutes, this radiated into her left upper arm. She also had a burning discomfort across the chest that lasted for a few hours. Did not notice difficulty breathing, nausea , or diaphoresis. Cannot recall recent stress testing and states she has never had a cardiac catheterization. Currently denies any symptoms. There is family history of CAD. Lifetime non-smoker. - Diagnosis (1) Chest pain (2) Paroxysmal atrial fibrillation (3) Hypertension (4) Hyperlipidemia (5) Diabetes (6) History of CVA (cerebrovascular accident) Review of Systems General: Patient denies fevers, chills, and recent travel. HEENT: Patient denies headache, sore throat, difficulty swallowing. Cardiovascular: Has the chest discomfort as mentioned above. Denies sensation of heart beating rapidly or irregularly. No syncope. Respiratory: Denies shortness of breath or inspirational chest discomfort. Denies coughing wheezing or hemoptysis. GI: Patient denies nausea, vomiting, diarrhea, abdominal pain, bloody stools. Musculoskeletal: Patient denies joint pain or edema. Denies calf pain or edema. Neurovascular: Patient denies numbness, tingling, weakness in extremities. Denies headache. Endocrine: Denies polyuria and polydipsia. Hematologic: Denies easy bruising. Skin: Denies rash or itching. PMFSH - History History Provided By: Patient - Medical History Medical History: Medical History (Last Reviewed 11/06/17 @ 09:55 by Shailesh Hicks MD) Atrial fibrillation Diabetes High cholesterol Hypertension - Surgical History Surgical History: Surgical History (Last Reviewed 11/06/17 @ 09:55 by Shailesh Hicks MD) H/O mastectomy - Tobacco History Second Hand Smoke Exposure: No Smoking Status: Never smoker - Alcohol History How Often Do You Have a Drink Containing Alcohol: Never - Substance Use History Substance History: No History of Abuse - Travel History Recent Travel in the [place] Within the Last 8 Weeks: No Recent Travel Out of the Country Within the Last 8 Weeks: No - Immunization History Tetanus Immunization: >5 Years Hx Influenza Vaccine This Season: Yes Medications and Allergies Active Medications: Active Medications Hydrocodone Bitart/Acetaminophen ([place] 7.5/325) 1 tab PO Q6H PRN PRN Reason: pain scale 6-10 Albuterol (Duoneb Neb (Prn)) 1 ampul NEB Q4HR NEB PRN PRN Reason: SHORTNESS OF BREATH/WHEEZING Apixaban (Eliquis) 5 mg PO BID FADY Aspirin (Aspirin) 325 mg PO DAILY FADY Atorvastatin Calcium (Lipitor) 10 mg PO DAILY FADY Clonidine HCl (Catapres) 0.1 mg PO Q6H PRN PRN Reason: SBP >165 OR DBP > 110 Insulin Human Regular (Novolin R Correctional Sugar Inj) 0 units SQ ACHS FADY; Protocol Levothyroxine Sodium (Synthroid) 75 mcg PO DAILY FADY Metoprolol Succinate (Toprol Xl) 50 mg PO DAILY FADY Non-Formulary Medication (Diltiazem Hcl [Diltiazem Hcl]) 120 mg PO DAILY FADY Non-Formulary Medication (Rabeprazole [Aciphex]) 20 mg PO DAILY FADY Potassium Chloride (Klor-Con 10) 10 meq PO DAILY FADY Sodium Chloride (Ns Flush) 2 ml IV.FLUSH UNSCH PRN PRN Reason: FLUSH AFTER USING IV ACCESS Sodium Chloride (Ns Flush) 2 ml IV.FLUSH BID FADY Sodium Chloride (Ns Flush) 2 ml IV.FLUSH PRN PRN PRN Reason: FLUSH AFTER USING IV ACCESS Allergies Allergy/AdvReac Type Severity Reaction Status Date / Time ampicillin Allergy Severe Rash Verified 11/06/17 09:20 cephalexin Allergy Severe Rash Verified 11/06/17 09:20 penicillin G Allergy Severe Rash Verified 11/06/17 09:20 Home Medications Medication Instructions Recorded Confirmed Type apixaban [Eliquis] 5 mg PO BID 11/06/17 11/06/17 History atorvastatin 10 mg PO DAILY 11/06/17 11/06/17 History calcium carbonate-vitamin D3 1 tab PO HS 11/06/17 11/06/17 History [Calcium 600 + D(3)] diltiazem HCl 120 mg PO DAILY 11/06/17 11/06/17 History folic acid 0.4 mg PO DAILY 11/06/17 11/06/17 History insulin NPH isoph U-100 human 10 unit SUB-Q QPM 11/06/17 11/06/17 History [Novolin N NPH U-100 Insulin] insulin NPH isoph U-100 human 34 unit SUB-Q QAM 11/06/17 11/06/17 History [Novolin N NPH U-100 Insulin] insulin regular human [Novolin R See Label Instructions .ROUTE 11/06/17 History Regular U-100 Insuln] .COMPLEX insulin regular human [Novolin R See Label Instructions .ROUTE 11/06/17 History Regular U-100 Insuln] .COMPLEX levothyroxine [Synthroid] 75 mcg PO DAILY 11/06/17 11/06/17 History metoprolol succinate 50 mg PO DAILY 11/06/17 11/06/17 History potassium chloride 10 meq PO DAILY 11/06/17 11/06/17 History rabeprazole [Aciphex] 20 mg PO DAILY 11/06/17 11/06/17 History telmisartan-hydrochlorothiazid 1 tab PO DAILY 11/06/17 11/06/17 History [Micardis HCT] Exam Vital signs: Vital Signs 11/06/17 08:59 11/06/17 09:32 11/06/17 09:40 Pulse Rate 64 64 Respiratory Rate 18 17 Blood Pressure 202/81 H 189/74 H Pulse Oximetry 97 99 99 11/06/17 10:55 Pulse Rate Respiratory Rate Blood Pressure 177/77 H Pulse Oximetry Intake & Output 11/05/17 11/06/17 11/06/17 18:59 06:59 18:59 Weight 83.007 kg Narrative: GENERAL: This is a well-nourished, well-developed patient, in no apparent distress. Patient speaks in clear complete sentences. Patient is pleasant. HEENT: Head is atraumatic and normocephalic. Neck is supple without lymphadenopathy and trachea is midline. No JVD or carotid bruits. CARDIOVASCULAR: Grade 2 systolic murmur left sternal border. Regular rate and rhythm without gallops, or rubs. RESPIRATORY: Clear to auscultation. Breath sounds equal bilaterally. No wheezes , rales, or rhonchi. Chest wall is nontender. No use of accessory muscles. GASTROINTESTINAL: Abdomen is nontender, nondistended. Abdomen soft. No obvious pulsatile mass or bruit. No CVA tenderness. Strong femoral pulses bilaterally. Normal bowel sounds in all quadrants. MUSCULOSKELETAL: Patient is moving upper and lower extremities freely. No calf tenderness or edema, no Homans sign. Strong pulses in upper and lower extremities. NEUROLOGICAL: Patient is alert and oriented. Cranial nerves 2-12 are grossly intact. No focal deficits and speech is clear. SKIN: No rash and turgor is normal. Results 11/06/17 09:40 11/06/17 09:40 Cardiac Enzymes 11/06/17 Range/Units 09:40 AST 17 (15-37) U/L Troponin I Less than 0.02 L (0.02-0.05) ng/mL Coagulation 11/06/17 Range/Units 09:40 PT 11.0 (9.8-11.6) sec APTT 30.6 H (24.3-30.1) sec CBC 11/06/17 Range/Units 09:40 WBC 6.5 (4.0-11.0) th/mm3 RBC 4.76 (4.00-5.30) mil/mm3 Hgb 13.2 (11.6-15.3) gm/dL Hct 40.2 (35.0-46.0) % Plt Count 216 (150-450) th/mm3 Neut # (Auto) 4.8 (1.8-7.7) th/mm3 Lymph # (Auto) 1.0 (1.0-4.8) th/mm3 Cass # (Auto) 0.4 (0.0-0.9) th/mm3 Eos # (Auto) 0.2 (0.0-0.4) th/mm3 Baso # (Auto) 0.0 (0.0-0.2) th/mm3 Comprehensive Metabolic Panel 11/06/17 Range/Units 09:40 Sodium 137 (136-145) meq/L Potassium 3.8 (3.5-5.1) meq/L Chloride 103 (98-107) meq/L Carbon Dioxide 24.3 (21.0-32.0) meq/L BUN 13 (7-18) mg/dL Creatinine 0.76 (0.50-1.00) mg/dL Calcium 8.8 (8.5-10.1) mg/dL AST 17 (15-37) U/L ALT 16 (10-53) U/L Alkaline Phosphatase 129 H (45-117) U/L Total Protein 7.0 (6.4-8.2) g/dL Albumin 3.7 (3.4-5.0) g/dL Intake and Output 11/05/17 11/06/17 11/06/17 22:59 06:59 14:59 Other: Weight 83.007 kg Patient Weight 11/07/17 06:59 Weight 83.007 kg EKG interpretations - EKG EKG shows: sinus rhythm (Initial EKG sinus rhythm with right bundle branch block. No significant ST segment depressions or elevations.) Caprini VTE Risk Assessment Caprini VTE Risk Assessment: No/Low Risk (score <= 1) Caprini Risk Assessment Model: Point Value = 1 Point Value = 2 Point Value = 3 Point Value = 5 Age 41-60 Minor surgery BMI > 25 kg/m2 Swollen legs Varicose veins or History of unexplained or recurrent spontaneous Oral contraceptives or hormone replacement Sepsis (< 1 month) Serious lung disease, including pneumonia (< 1 month) Abnormal pulmonary function Acute myocardial infarction Congestive heart failure (< 1 month) History of inflammatory bowel disease Medical patient at bed rest Age 61-74 Arthroscopic surgery Major open surgery (> 45 min) Laparoscopic surgery (> 45 min) Malignancy Confined to bed (> 72 hours) Immobilizing plaster cast Central venous access Age >= 75 History of VTE Family history of VTE Factor V Leiden Prothrombin [id number] Lupus anticoagulant Anticardiolipin antibodies Elevated serum homocysteine Heparin-induced thrombocytopenia Other congenital or acquired thrombophilia Stroke (< 1 month) Elective arthroplasty Hip, pelvis, or leg fracture Acute spinal cord injury (< 1 month) Prophylaxis Regimen: Total Risk Factor Score Risk Level Prophylaxis Regimen 0-1 Low Early ambulation 2 Moderate Order ONE of the following: *Sequential Compression Device (SCD) *Heparin 5000 units SQ BID 3-4 Higher Order ONE of the following medications: *Heparin 5000 units SQ TID *Enoxaparin/Lovenox 40 mg SQ daily (WT < 150 kg, CrCl > 30 mL/min) *Enoxaparin/Lovenox 30 mg SQ daily (WT < 150 kg, CrCl > 10-29 mL/min) *Enoxaparin/Lovenox 30 mg SQ BID (WT < 150 kg, CrCl > 30 mL/min) AND/OR *Sequential Compression Device (SCD) 5 or more Highest Order ONE of the following medications: *Heparin 5000 units SQ TID (Preferred with Epidurals) *Enoxaparin/Lovenox 40 mg SQ daily (WT < 150 kg, CrCl > 30 mL/min) *Enoxaparin/Lovenox 30 mg SQ daily (WT < 150 kg, CrCl > 10-29 mL/min) *Enoxaparin/Lovenox 30 mg SQ BID (WT < 150 kg, CrCl > 30 mL/min) AND *Sequential Compression Device (SCD) Assessment and Plan - Assessment (1) Chest pain Code(s): R07.9 - Chest pain, unspecified Status: Acute (2) Paroxysmal atrial fibrillation Code(s): I48.0 - Paroxysmal atrial fibrillation Status: Acute (3) Hypertension Code(s): I10 - Essential (primary) hypertension Status: Acute (4) Hyperlipidemia Code(s): E78.5 - Hyperlipidemia, unspecified Status: Acute (5) Diabetes Code(s): E11.9 - Type 2 diabetes mellitus without complications Status: Acute (6) History of CVA (cerebrovascular accident) Code(s): Z86.73 - Personal history of transient ischemic attack (TIA), and cerebral infarction without residual deficits Status: Acute - Plan * Chest pain: Patient will continue to have serial cardiac enzymes and EKGs for ruling out purposes. She will be seen by Dr. [place] of cardiology in the chest pain center. 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 Pruett. Patient will have a Lexiscan in the morning if she rules out. Patient will be discharged home if her stress test is nonischemic with instructions to follow-up with PCP, fish hatchery assistant, and PCP. Return to ED for interval issues. * Paroxysmal atrial relation: Will be a monitor. Continue medications. * Hypertension: Continue medications. * Hyperlipidemia: Continue medications. * Diabetes: Patient will be on sliding scale insulin coverage while in chest pain center. Follow diabetic diet. * History of CVA: Continue medications. Continue follow-up with her PCP. Patient is stable at this time. She is agreeable to this plan.
[2017-11-06] MEDS: Insulin NovoLIN Regular Correctional Sugar Inj SQ SCH ×3 (12:21→21:03)
[2017-11-06 13:55] LABS: Creatine Kinase 55 U/L (26-192)
[2017-11-06 16:35] LABS: Creatine Kinase 49 U/L (26-192)
--- NOTE | 2017-11-06 19:48 | ECG ---
Date Performed: 11/06/2017 Time Performed: 12:47:47 PTAGE: 82 years EKG: SINUS BRADYCARDIA RIGHT BUNDLE BRANCH BLOCK ABNORMAL ECG PREVIOUS TRACING : 11/06/2017 09.21 Since the previous tracing, no significant change noted DOCTOR: Elke Tinsley Interpretating Date/Time 11/06/2017 19:47:27
[2017-11-07] MEDS ORDERED: Levothyroxine 75 MCG Tablet PO SCH (06:00)
[2017-11-07 07:58] VITALS: BP 149/66; PULSE 60; RESP 16; TEMP 97.7; O2SAT 97
[2017-11-07] MEDS: Insulin NovoLIN Regular Correctional Sugar Inj SQ SCH (08:15)
[2017-11-07] MEDS ORDERED: Aspirin 325 MG Tablet PO SCH (09:00)
[2017-11-07] MEDS ORDERED: Pantoprazole Sodium 20 MG DR Tablet PO SCH (09:00)
[2017-11-07] MEDS ORDERED: dilTIAZem CD 120 MG Capsule PO SCH (09:00)
[2017-11-07] MEDS ORDERED: Regadenoson Inj 0.4 MG/5 ML Syringe IV.PUSH ONE (09:22)
--- NOTE | 2017-11-07 11:18 | NM ---
EXAM DATE: 11/07/2017 10:37 AM EDT AGE/SEX: 82 years / Female INDICATIONS:Angina. Atrial fibrillation Midchest pain. CLINICAL DATA: This is the patient's initial encounter. Patient reports that signs and symptoms have been present for 1 day and indicates a pain score of 4/10. MEDICAL/SURGICAL HISTORY: Diabetes mellitus type II. Hypertension. Mastectomy, bilateral. Loop recorder placed. COMPARISON: No prior exams available for comparison. No external comparison. DOSE: 8.3 mCi Tc 99m Myoview at rest 25.5 mCi [id number] at stress 0.4 mg Lexiscan STRESS SYMPTOMS: Warm and flush. EJECTION FRACTION: >70 % TECHNIQUE: The patient underwent pharmacologic stress with infusion of prescribed dose. Continuous ECG tracing was monitored during stress. Gated SPECT imaging was performed after stress and conventi onal SPECT imaging was performed at rest. The examination was performed on a SPECT/CT scanner, both attenuation and non-corrected datasets were reviewed. FINDINGS: Distribution: The maximum perfused segment at stress is in the anterior lateral wall. Perfusion Study: The pattern of perfusion at stress is within normal limits. Gated Study: There are intact wall motion and wall thickening without hypokinetic or dyskinetic segm ents. The ejection fraction is calculated at >70%. RISK CATEGORY: Low (<1% Annual Motality Rate) CONCLUSION: 1. Negative for stress-induced ischemia Electronically signed by: Balbir Delacruz MD 11/07/2017 11:17 AM EDT
--- NOTE | 2017-11-07 14:26 | ECG ---
Date Performed: 11/06/2017 Time Performed: 15:59:19 PTAGE: 82 years EKG: SINUS BRADYCARDIA RIGHT BUNDLE BRANCH BLOCK ABNORMAL ECG PREVIOUS TRACING : 11/06/2017 12.47 Since previous tracing, no significant change noted DOCTOR: Jone Leslie Interpretating Date/Time 11/07/2017 14:26:36
--- NOTE | 2017-11-07 14:27 | ECG ---
Date Performed: 11/06/2017 Time Performed: 09:21:29 PTAGE: 82 years EKG: Sinus rhythm RIGHT BUNDLE BRANCH BLOCK ABNORMAL ECG PREVIOUS TRACING : 12/09/2016 13.16 Since previous tracing, no significant change noted DOCTOR: Jone Leslie Interpretating Date/Time 11/07/2017 14:26:56
--- NOTE | 2017-11-07 14:30 | TR ---
Date Performed: 11/07/2017 Time Performed: 09:20:30 DOCTOR: Jone Leslie DRUG LIST: CLINICAL HISTORY: REASON FOR TEST: REASON FOR ENDING: OBSERVATION: CONCLUSION: COMMENTS: Lexiscan stress test was performed under standard four minute protocol. Radionuclide was injected one minute prior to ending the test. No electrocardiographic abormalities were present t o suggest ischemia. Nuclear imaging and interpretation are pending.
== END 2017-11-07 13:11 | disposition home or self-care (01) ==
LOC: NEDA 08:54 → NEPGCP 08:54 → NEPE 08:54 → NEPGCP 11:44
PROVIDERS: ADMIT Internal Medicine Interventional Cardiology; ATTEND Internal Medicine Interventional Cardiology